=== PATIENT | male | born 1945 | race Caucasian/White ===

== ENCOUNTER 2018-04-05 02:44 | Emergency (ER) | payer OTHER, MEDICARE ==
[~2018-04-05] VITALS: Ht 180.3 cm; Wt 88.5 kg
[~2018-04-05 02:44] MED LIST: ASPIRIN325 MG PO; AUGMENTIN 875-1 EACH PO; CARVEDILOL12.5 MG PO; CENTRUM COMPLE1 EACH; CLEOCIN HCL150 MG PO; COREG6.25 MG PO; FUROSEMIDE40 MG PO; GLIPIZIDE ER5 MG PO; GLIPIZIDE5 MG PO; HYDROCODON-ACE1 EA11; HYDROCODON-ACE1 EAC3; METFORMIN HCL500 MG PO; MOBIC15 MG; NORCO 7.5-3251 EACH PO; NOVOLOG MI100 UNITS/ IJ; PLAVIX75 MG PO; PRILOSEC20 MG; PRINIVIL20 MG PO; ULTRAM50 MG PO; UNISOM SLEEP AI25 MG PO
[2018-04-05 03:01] LABS: BASOPHILS # (AUTO) 0.1 (0.0-0.1); BASOPHILS % 0.6 % (0.0-1.0); EOSINOPHILS # (AUTO) 0.6 (0.0-0.4); EOSINOPHILS % 7.6 % (0.0-6.0); HEMATOCRIT 37.5 % (38.2-49.6); HEMOGLOBIN 13.3 g/dL (14.0-18.0); LYMPHOCYTES # (AUTO) 2.4 (1.0-3.2); LYMPHOCYTES % 29.9 % (18.0-39.1); MEAN CORPUSCULAR HGB CONC 35.5 g/dL (31-35); MEAN CORPUSCULAR VOLUME 90.1 fL (81-99); MONOCYTES # (AUTO) 0.8 (0.2-0.8); MONOCYTES % 9.4 % (4.4-11.3); NEUTROPHILS # (AUTO) 4.3 (2.1-6.9); NEUTROPHILS % 52.1 % (38.7-80.0); PLATELET COUNT 214 x10e3/uL (140-360); RED BLOOD COUNT 4.16 x10e6/uL (4.3-5.7); RED CELL DISTRIBUTION WIDTH 12.6 % (11.7-14.4)
[2018-04-05] MEDS ORDERED: HYDRALAZINE HCL 20 MG/ML VIAL IV STA (03:02)
--- NOTE | 2018-04-05 03:31 | Diagnostic Imaging Report ---
EXAM: XR CHEST 1 VIEW DATE: 04/05/2018 2:47 AM INDICATION: Pain COMPARISON: None FINDINGS: Lines and Tubes: Single lead left chest wall ICD Heart and Mediastinum: No acute cardiomediastinal findings. Lungs and Pleura: No significant pleural effusion, pneumothorax, or focal consolidation. Granuloma right midlung. Bones and Soft Tissues: Degenerative changes shoulders. IMPRESSION: 1. No acute cardiopulmonary findings. Signed by: Dr. Pelon Nicholson MD on 04/05/2018 3:28 AM
[2018-04-05 03:36] LABS: ALBUMIN 3.2 g/dL (3.5-5.0); ALBUMIN/GLOBULIN RATIO 1.1 (0.8-2.0); ANION GAP 15.2 mmol/L (8-16); CALCIUM 9.1 mg/dL (8.4-10.2); CREATININE, SERUM 2.18 mg/dL (0.72-1.25); POTASSIUM 3.2 mmol/L (3.5-5.1)
[2018-04-05 05:05] LABS: INR 0.9; PARTIAL THROMBOPLASTIN TIME 28.6 seconds (23.8-35.5)
== END 2018-04-05 04:40 | disposition home or self-care (01) ==
LOC: ER 02:44
DX: R07.89 Other chest pain (principal); R06.00 Dyspnea, unspecified; I10 Essential (primary) hypertension; E11.9 Type 2 diabetes mellitus without complications; I50.9 Heart failure, unspecified; Z89.512 Acquired absence of left leg below knee; I25.2 Old myocardial infarction; Z95.810 Presence of automatic (implantable) cardiac defibrillator
CPT/HCPCS: 36415; 71045; 80053; 82550; 82553; 83880; 84484; 85025; 85610; 85730; 93005; 99284

== ENCOUNTER 2018-05-05 12:32 | Emergency (ER) | payer MEDICARE, OTHER ==
[~2018-05-05] VITALS: Ht 182.9 cm; Wt 86.2 kg
--- OUTSIDE RECORDS SUMMARY | 2018-05-05 12:36 | XMS REPORT ---
Author Author [facility] Address Unknown Phone Unavailable Care Team Providers Care Lumpia Wrapper Maker Name Role Phone Kianna TAN Unavailable Unavailable Problems This patient has no known problems. Allergies, Adverse Reactions, Alerts This patient has no known allergies or adverse reactions. Medications This patient has no known medications. Results Test Description Test Time Test Comments Text Results Atomic Results Result Comments CHEST SINGLE (PORTABLE) 2018-04-05 03:27:00 [place] [address] Patient Name: KIA KING MR #: [id number] : 1945 Age/Sex: 73/M Req #: [id number] Adm Physician: Ordered by: JADON TAN MD Report #: [id number] Location: ER Room/Bed: Procedure: [id number] DX/CHEST SINGLE (PORTABLE) Exam Date: 04/05/18 Exam Time: 0305 REPORT STATUS: Signed EXAM: XR CHEST 1 VIEW DATE: 04/05/2018 2:47 AM INDICATION: Pain COMPARISON: None FINDINGS: Lines and Tubes: Single lead left chest wall ICD Heart and Mediastinum: No acute cardiomediastinal findings. Lungs and Pleura: No significant pleural effusion, pneumothorax, or focal consolidation. Granuloma right midlung. Bones and Soft Tissues: Degenerative changes shoulders. IMPRESSION: 1. No acute cardiopulmonary findings. Signed by: Dr. Pelon Allen MD on 04/05/2018 3:28 AM Dictated By: PELON ALLEN MD 7 Transcribed By: BAR on 04/05/18327 COPY TO: JADON TAN MD
--- NOTE | 2018-05-05 13:12 | NUR ---
DR. BLACKWELL IN TO EVAL PT DURING TRIAGE.
== END 2018-05-05 13:18 | disposition left against medical advice (07) ==
LOC: ER 12:32
DX: R31.0 Gross hematuria (principal)
CPT/HCPCS: 99281

== ENCOUNTER 2018-12-10 14:47 | Inpatient (IN) | payer MEDICARE, OTHER ==
[~2018-12-10] VITALS: Ht 210.8 cm; Wt 75.5 kg
[2018-12-10 16:10] LABS: BASOPHILS % 0.2 % (0.0-1.0); EOSINOPHILS # (AUTO) 0.1 (0.0-0.4); EOSINOPHILS % 0.5 % (0.0-6.0); HEMOGLOBIN 10.2 g/dL (14.0-18.0); LYMPHOCYTES # (AUTO) 1.5 (1.0-3.2); LYMPHOCYTES % 8.9 % (18.0-39.1); MEAN CORPUSCULAR HEMOGLOBIN 30.8 pg (28-32); MEAN CORPUSCULAR HGB CONC 32.9 g/dL (31-35); MEAN CORPUSCULAR VOLUME 93.7 fL (81-99); MONOCYTES # (AUTO) 1.1 (0.2-0.8); MONOCYTES % 6.5 % (4.4-11.3); NEUTROPHILS # (AUTO) 13.6 (2.1-6.9); NEUTROPHILS % 83.2 % (38.7-80.0); PLATELET COUNT 285 x10e3/uL (140-360); RED BLOOD COUNT 3.31 x10e6/uL (4.3-5.7); RED CELL DISTRIBUTION WIDTH 13.2 % (11.7-14.4)
[2018-12-10 16:29] LABS: ALBUMIN 3.1 g/dL (3.5-5.0); ALBUMIN/GLOBULIN RATIO 0.9 (0.8-2.0); ANION GAP 13.1 mmol/L (8-16); CREATININE, SERUM 1.73 mg/dL (0.72-1.25); POTASSIUM 4.1 mmol/L (3.5-5.1)
[2018-12-10] MEDS ORDERED: PIPERACILLIN/TAZO 2.25 GM 50 ML IV ONE (16:45)
[2018-12-10] MEDS ORDERED: VANCOMYCIN 1GM/NS 250 ML 250 ML IV ONE (17:15)
--- NOTE | 2018-12-10 17:43 | Diagnostic Imaging Report ---
Foot complete CPT code: 54780 Indication: Foot and leg swelling ^R/O OSTEO ^[id number] ^1700 Technique: Portable A.P., oblique and lateral views of the right foot obtained. Comparison: None Findings: The area of concern is not indicated or marked. Calcaneus is intact with small posterior and plantar spurs. The midfoot is intact. No evidence of displaced fracture or dislocation involving any of the digits. No focal demineralization or periosteal new bone formation. There is diffuse soft tissue swelling of the forefoot at the level of the metatarsals. No ulcers are appreciated. There are calcifications throughout the arterial structures of the forefoot. No radiopaque foreign bodies in the soft tissues. IMPRESSION: No radiographic evidence of osteomyelitis. Signed by: Dr. Roger Wells MD on 12/10/2018 5:40 PM
[2018-12-10 20:00] VITALS: BP 164/63
--- NOTE | 2018-12-10 20:05 | NUR ---
Patient admitted to room 297 via stretcher. Patient alert and orient to name, hospital , and diagnosis: right foot infection. Left BKA, right heel eschar to heel. Patient stated fallen x3 in past week. left leg with heeling abrasions. Patient stated legally blind. Denies dysuria. Last BM 2 days ago. sacrum stage 2. hx left hip replacement x3 weeks ago, surgical incisions heeling. Oriented to room. Call crum within reach. Bed alarm on and mattress pump in place. Will continue to monitor.
[2018-12-10 20:34] VITALS: BP 164/63
[2018-12-10] MEDS ORDERED: INFLUENZA VIRUS VAC SPLIT INJ 0.5 ML SYR IM SCH (20:35)
[2018-12-10] MEDS ORDERED: PNEUMOCOCCAL VACCINE POLYVALENT 23 MCG/0.5 ML VIAL IM SCH (20:35)
[2018-12-10] MEDS: CEFTRIAXONE SOD 2 GM/NS 100 ML 100 ML IV SCH (21:00)
[2018-12-10] MEDS ORDERED: SODIUM CHLORIDE 0.9% 250ML 250 ML ONE (22:58)
[2018-12-10] MEDS ORDERED: DEXTROSE 50% SYRINGE 50 ML IV PRN (23:00)
[2018-12-11] VITALS (8 sets, daily range): BP systolic 119–159; BP diastolic 66–80
[2018-12-11] MEDS: TRAZODONE HCL 50 MG TAB PO PRN
--- NOTE | 2018-12-11 02:25 | Consultation ---
DATE OF CONSULTATION: REASON FOR CONSULTATION: Gangrene and cellulitis of the right heel. HISTORY OF PRESENT ILLNESS: This patient who is very pleasant 73-year-old, who has history of diabetes mellitus, hypertension, hyperlipidemia, atherosclerotic disease. He also has status post dncpi-vov-vchc amputation on the left. He said he was taking his boot a week or so ago. The piece of the skin came out from the heel. The patient had necrosis, redness, and swelling. The patient came to the emergency room where he was admitted. He is currently lying in bed, complaining of pain, redness, swelling in his foot. PAST MEDICAL HISTORY: Diabetes mellitus and hypertension. PAST SURGICAL HISTORY: BKA. ALLERGIES: NKA. HOME MEDICATIONS: He is on: 1. Carvedilol. 2. Plavix. 3. Furosemide. 4. Glipizide. 5. Insulin. The patient was admitted. I am asked to see him. MEDICATION LIST: Reviewed. LABORATORY DATA: Reviewed. His creatinine was 1.3. PHYSICAL EXAMINATION: GENERAL: He is currently alert, oriented, does not seem to be in acute distress. VITAL SIGNS: Stable. Currently afebrile. HEENT: Normocephalic. Not icteric. NECK: Supple. No JVD. No carotid bruit. No thyromegaly. CHEST: Clear bilateral. HEART: S1, S2. No S3, S4, or murmur. ABDOMEN: Soft. Bowel sounds present. No tenderness. EXTREMITIES: No edema. On the right foot, there is an area for erythema, edema, necrosis of the heel. The forefoot seems to be erythematous. IMPRESSION: Cellulitis of the foot in a patient with diabetes mellitus, chronic kidney disease, concerned about atherosclerotic disease, peripheral vascular disease. Agree with vancomycin. We will put him on Rocephin 2 g a day. We will adjust vancomycin to his kidney function. We will follow up with the vancomycin trough. LABORATORY DATA: Recheck CBC. Recheck Chem panel. Obtain sedimentation rate and C-reactive protein. He is also status post a pacemaker and defibrillator, so we cannot do an MRI. We will get CT of the foot without contrast and also vascular workup and the phone number. We will follow up. MD TESFAYE Flood/CHANELL /[id number]
[2018-12-11] MEDS: HYDROCODONE/APAP 5MG-325MG TAB PO PRN ×3 (06:55→19:06)
[2018-12-11] MEDS ORDERED: INFLUENZA VIRUS VAC SPLIT INJ 0.5 ML SYR IM ONE (07:08)
[2018-12-11] MEDS ORDERED: PNEUMOCOCCAL VACCINE POLYVALENT 23 MCG/0.5 ML VIAL ONE (07:10)
[2018-12-11] MEDS: INSULIN REGULAR, HUMAN 100 UNIT/1 ML 3ML VIAL SQ SCH ×4 (07:30→21:00)
--- NOTE | 2018-12-11 07:30 | NUR ---
PT UP IN BED AWAKE ,DENIES PAIN
--- NOTE | 2018-12-11 08:30 | NUR ---
DR MUNIZ HERE ,DR HUTCHINSON HERE DRSG TO RT FOOT REMOVED ,ORDERS WRITTEN
[2018-12-11] MEDS: OMEPRAZOLE 20 MG CAP PO SCH (09:13)
[2018-12-11] MEDS: CARVEDILOL 12.5 MG TAB PO SCH ×2 (09:13→17:30)
[2018-12-11] MEDS: CLOPIDOGREL BISULFATE 75 MG TAB PO SCH (09:13)
[2018-12-11] MEDS: FUROSEMIDE 40 MG TAB PO SCH ×2 (09:13→17:30)
[2018-12-11] MEDS: GLIPIZIDE 5 MG TAB PO SCH ×2 (09:14→17:30)
[2018-12-11] MEDS: LISINOPRIL 20 MG TAB PO SCH (09:14)
[2018-12-11] MEDS: MUPIROCIN 2% OINT 22 GM TUBE TOP SCH (12:04)
--- NOTE | 2018-12-11 12:30 | NUR ---
PT ASSISTED UP TO BR MIN ASSIST
--- NOTE | 2018-12-11 15:19 | Consultation ---
DATE OF CONSULTATION: 12/11/2018 REASON FOR CONSULTATION: Ulceration to the right foot with the patient being an insulin-dependent diabetic. HISTORY OF PRESENT ILLNESS: A pleasant 73-year-old white male, who is seen at bedside. Denies any history of fever, chills, nausea, or vomiting, with a history of insulin-dependent diabetes, hypertension, and a history of also xixdj-kti-atwe amputation to the left lower extremity 5 years ago, who relates he has had an ulceration for approximately a month now. Started wearing a boot according to the patient. PAST MEDICAL HISTORY: Remarkable for insulin-dependent diabetes and hypertension. PAST SURGICAL HISTORY: Remarkable for left hip surgery approximately 2 weeks ago, left vesfi-ltw-phzm amputation 5 years ago with placement of defibrillator also 5 years ago. ALLERGIES: THE PATIENT DENIES. CURRENT MEDICATIONS: Note listed in the chart including ceftriaxone and vancomycin. SOCIAL HISTORY: Smokes approximately a pack a week, started once again approximately 8 months ago, was a pack-a-day smoker 25 years ago according to the patient. No drinking or recreational drug use. Has 3 daughters. FAMILY HISTORY: Not contributory. REVIEW OF SYSTEMS: CARDIAC: Denies any palpitations or arrhythmias. RESPIRATORY: Denies any shortness of breath or productive cough. GASTROINTESTINAL: Denies any diarrhea or constipation. PHYSICAL EXAMINATION: VITAL SIGNS: Afebrile, pulse rate 73, respirations 18, blood pressure 141/79, and O2 saturation 98%. Podiatric physical examination reveals the following: VASCULATURE: Pedal pulses of both the DP and PT of the right lower extremity are diminished. Skin temperature warm and cool to touch. NEUROLOGICAL: Reveals loss of protective sensation to the right lower extremity when utilizing [place] 5.07 Monofilament wire. MUSCULOSKELETAL: Reveals muscle mass to be somewhat wasted to the right lower extremity. Muscle strength to be 4/5 to all muscle groups right foot. DERMATOLOGICAL: Reveals a grade 3 ulceration measuring more than 2.5 to 3 cm in diameter, posterior plantar aspect of the right heel with some necrotic scab noted and periwound cellulitis with no drainage. LABORATORY DATA: Labs noted. He has a white blood cell count of 16.3, hemoglobin 10.2 with a platelet count of 285. Has a blood glucose of 144. ASSESSMENT: Grade 3 ulcer, possible osteo, peripheral arterial disease, diabetic neuropathy with cellulitis. PLAN: We will continue IV antibiotics. Continue offloading. X-rays, axial calcaneal lateral will be ordered to rule out any osteomyelitis. We will start light film of Bactroban ointment followed by diluted wet-to-dry Betadine. Surgical debridement of the ulcer will be performed at bedside tomorrow. The patient understands. We will try to salvage the foot, but no guarantees can be given. CARMENZA Vu/FREDERICL /[id number]
[2018-12-11] MEDS: VANCOMYCIN 1GM/NS 250 ML 250 ML IV SCH (18:09)
--- NOTE | 2018-12-11 18:11 | NUR ---
PT IN BED RESTING NO DISTRESS NOTED,DENIES PPAIN,REDNESS NOTED TO SACRAL AREA ALDA BOYLE
--- NOTE | 2018-12-11 19:20 | NUR ---
Bedside rounds with morning nurse. Pt alert and oriented to name. Lying in bed HOB 30 degrees. Pain decreasing in right foot, previously medicated. Call crum within reach. Will continue to monitor.
[2018-12-11] MEDS: CEFTRIAXONE SOD 2 GM/NS 100 ML 100 ML IV SCH (20:00)
--- NOTE | 2018-12-11 23:01 | Consultation ---
DATE OF CONSULTATION: Cardiology Consultation CHIEF COMPLAINT: Gangrene and cellulitis of the right heel. HISTORY OF PRESENT ILLNESS: The patient is a 73-year-old with a known history of diabetes mellitus and peripheral vascular disease. The patient said he was ripped the skin off his right heel when he was taking off his boot. The patient came to the emergency room with erythema, swelling and necrosis of the right heel. The patient was subsequently admitted. PAST MEDICAL HISTORY: Significant for: 1. Diabetes mellitus. 2. Hypertension. 3. Coronary artery disease with previous coronary stent. 4. Peripheral vascular disease with previous left mxmdr-aqk-crhv amputation. CURRENT MEDICATIONS: At home include: 1. Carvedilol. 2. Plavix. 3. Furosemide. 4. Insulin. SOCIAL HISTORY: The patient does not drink and does not smoke. FAMILY HISTORY: There is a known family history of diabetes mellitus and hypertension. PHYSICAL EXAMINATION: GENERAL: The patient is a well-developed, well-nourished male, in no obvious distress. VITAL SIGNS: Included temperature of 97.7, blood pressure of 134/80, pulse was 65. HEAD, EARS, EYES, NOSE, AND THROAT: The patient's cranium was normocephalic and atraumatic. Extraocular muscles were intact. Sclerae were anicteric. Pupils were equal, round, reactive to light. There was no pallor or cyanosis of the oral mucosa. There was no erythema or edema of the throat. NECK: Supple. No jugular venous distention. No carotid bruits. CHEST: Clear to auscultation and percussion. CARDIAC: Demonstrated normal S1 and S2 with a short 2/6 systolic murmur. ABDOMINAL: Demonstrated good bowel sounds. No tenderness and no masses. EXTREMITIES: The patient had a left mkzsl-slw-bkbs amputation. The patient also had a right heel ulcer. NEUROLOGIC: The patient was alert and oriented x3. Cranial nerves II through XII were intact. Motor strength was intact in all limbs. The patient's EKG demonstrated normal sinus rhythm with some nonspecific ST and T-wave changes. IMPRESSION: The patient is a 73-year-old with peripheral vascular disease and necrotic ulcer of the right heel. RECOMMENDATIONS: As follows: 1. The patient will need to be treated with antibiotics and local wound care. 2. The patient is unable to heel his wound with local wound debridement and dressing changes and antibiotics. An angiogram of the right leg will need to be done. 3. An arterial duplex has been ordered and it still pending. MD DENIS Caballero/FREDERICL /[id number] cc: MD Whitney Flood MD
[2018-12-12] VITALS (8 sets, daily range): BP systolic 122–174; BP diastolic 67–79
--- NOTE | 2018-12-12 07:00 | NUR ---
RECEIVED REPORT FROM OFF GOING NURSE. WALKING ROUNDS DONE. PATIENT IS RESTING IN BED. NO ACUTE DISTRESS NOTED. CALL LIGHT WITHIN REACH. BED IN THE LOWEST POSITION.
[2018-12-12] MEDS: INSULIN REGULAR, HUMAN 100 UNIT/1 ML 3ML VIAL SQ SCH ×4 (07:30→20:38)
[2018-12-12] MEDS: MUPIROCIN 2% OINT 22 GM TUBE TOP SCH (09:00)
[2018-12-12] MEDS: CARVEDILOL 12.5 MG TAB PO SCH ×2 (10:10→18:02)
[2018-12-12] MEDS: FUROSEMIDE 40 MG TAB PO SCH ×2 (10:10→18:02)
[2018-12-12] MEDS: CLOPIDOGREL BISULFATE 75 MG TAB PO SCH (10:10)
[2018-12-12] MEDS: GLIPIZIDE 5 MG TAB PO SCH ×2 (10:10→18:01)
[2018-12-12] MEDS: LISINOPRIL 20 MG TAB PO SCH (10:10)
[2018-12-12] MEDS: OMEPRAZOLE 20 MG CAP PO SCH (10:10)
--- NOTE | 2018-12-12 11:39 | Progress Note ---
DATE: 12/12/2018 SUBJECTIVE: Mr. Dickson is a 73-year-old man with history of coronary artery disease, diabetes type 2, hypertension, left below-knee amputation, hyperlipidemia, has a defibrillator, sent to the emergency room with right heel ulcer with probably infection and osteomyelitis. He was admitted to the hospital. He is seen by food service worker, Infectious Disease, and Cardiology. PHYSICAL EXAMINATION: GENERAL: Today, he is awake and alert. He is feeling little better. VITAL SIGNS: Temperature is 97.9, blood pressure 133/67. HEART: Regular rate. LUNGS: Clear to auscultation. ABDOMEN: Soft. LABORATORY DATA: On the blood work, potassium is 4.1, creatinine is 1.73, glucose is 100. White count is 16.3, hemoglobin 10.2, hematocrit 31. Blood cultures so far no growth. Venous Doppler, no evidence of DVT. Foot x-ray shows no evidence of osteomyelitis. ASSESSMENT AND PLAN: 1. Left heel cellulitis with infected ulcer. 2. Diabetes type 2 with foot ulcer. 3. Coronary artery disease, status post stent. 4. Hypertension. 5. Presence of defibrillator. 6. Hyperlipidemia. 7. Left below-knee amputation. 8. 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 9. Chronic kidney disease, stage 3. 10. Peripheral artery disease. PLAN: At the present time is to continue wound care and IV antibiotics. He is going to go for debridement today that is going to be done at bedside by Dr. Hayward. All this was discussed with the patient. All questions were answered to satisfaction. He cannot have an MRI because he has a defibrillator, so he is going to go for a CAT scan to rule out osteomyelitis. MD BRENDA Vidal/FREDERICL /[id number]
--- NOTE | 2018-12-12 12:12 | Diagnostic Imaging Report ---
EXAM: CT right foot without contrast INDICATION: Foot infection. Osteomyelitis. Foot pain COMPARISON: None. TECHNIQUE: Right foot was scanned utilizing a multidetector helical without administration of IV contrast. Coronal and sagittal reformations were obtained. Routine protocol was performed. IV CONTRAST: None ORAL CONTRAST: Water COMPLICATIONS: None RADIATION DOSE: Total DLP: 121.94 mGy*cm Estimated effective dose: (DLP x 0.015 x size factor) mSv CTDIvol has been reviewed. It is below the limits set by the Radiation Protocol Committee (RPC). Dose modulation, iterative reconstruction, and/or weight based adjustment of the mA/kV was utilized to reduce the radiation dose to as low as reasonably achievable. FINDINGS: No acute fracture, subluxation or evidence of avascular necrosis. Bipartite fibular sesamoid bone. Scattered degenerative changes. Small posterior and inferior calcaneal bone spurs. No talar dome osteochondral lesion is seen. No osseous erosion is seen to suggest osteomyelitis. Scattered vascular calcification. Diffuse muscle atrophy. Diffuse soft tissue edema about the foot. This could be due to cellulitis in the appropriate clinical context. No focal collection is seen. Apparent skin ulceration at the posterior calcaneus. No radiopaque foreign body. Impression: Diffuse soft tissue edema about the foot. This could be due to cellulitis in the appropriate clinical context. No focal collection is seen. Apparent skin ulceration at the posterior calcaneus. No osseous erosion is seen to suggest osteomyelitis. Signed by: Dr. Gabriele Mcnally M.D. on 12/12/2018 12:09 PM
--- NOTE | 2018-12-12 13:03 | NUR ---
Nutrition Intervention Note RD Recommendation(s) for Physician: -Continue current diet. -Recommend Shayan BID to promote wound healing. -Recommend zinc sulfate 22 mg daily x 10 days, Vit C 500 mg BID, MVI with minerals daily to help promote wound healing if medically feasible. Plan of Care: RD following, monitoring for tolerance and adequacy. Shayan BID. Nutrition reason for involvement: Unstageable pressure ulcer RD Assessment 12/12: 73 YOM admitted for foot infection with PMH listed below. Pt was seen lying in bed. Pt reports a good appetite and did not report any recent weight loss. Pt denied N/V, stated he has chronic constipation and denied chewing or swallowing issues as well as any food allergies. Per FS the pt has an unstageable wound on heel. Wound care has been consulted. Provided wound healing recommendations above and encouraged protein intake, pt denied ONS such as Ensure. Recommend Shayan BID to help promote wound healing, reported this to nurse who reported she will ask the MD. Pt is going for a debridement today per MD note, pt is going to have a CAT scan to rule out osteomyelitis. Pt was here in April and was 190 lbs suggesting no weight loss. Will continue to monitor. Principal Problems/Diagnoses: Foot infection PMH: coronary artery disease, diabetes type 2, hypertension, left below-knee amputation, hyperlipidemia, has defibrillator GI: :LBM: not recorded Skin: unstageable on heel, stage II on sacrum, wound on foot Labs: 12/12: POC GM 226 Meds: Lisinopril, glucotrol, lasix, plavix, abx, insulin Ht: 83 inches is recorded with EMR, 73 inches is more appropriate Wt: 190 lbs BMI:19.6 kg/m^2BMI based on 73 inches: 25.1 kg/m^2 ABW: 91 kg Malnutrition Evaluation 12/12 The patient does not meet criteria for a specified degree of malnutrition at this time. Will re-evaluate at follow-up as appropriate. Nutrition Prescription (Diet Order):cardiac Estimated Nutritional Needs: Calories: 1638- 2002 (18-22 kcal/kg/day) Weight used : ABW 91 kg Protein : 109-136(1.2-1.5 gram/kg/day ) Weight used: ABW 91kg Diet Adequacy: Not meeting calorie needs, Not meeting protein needs Diet Education Needs Assessment: Diet education indicated, but patient not appropriate for education at this time. Nutrition Care Level: mod Nutrition Diagnosis: Inadequate protein intake related to medical condition as evidenced by possible unstageable pressure ulcer recorded within EMR. Goal: Patient will meet 75-100% of estimated needs by follow up Progress: N/A Interventions: - mineral (sodium). Fat. Cholesterol modified diet, Commercial beverage Prescription medications Multivitamin/mineral supplement therapy, Monitoring/Evaluation: -Total energy intake, Total protein intake Prescription medication, Modified diet, Liquid supplement, Weight change, Signed: Jeanne Coronado RD, LD
[2018-12-12] MEDS: COLLAGENASE 5 GM TUBE TOP SCH (15:03)
--- NOTE | 2018-12-12 16:25 | Progress Note ---
DATE: 12/12/2018 SUBJECTIVE: The patient at bedside having some discomfort to the right lower extremity. Denies any history of fever, chills, nausea, or vomiting. OBJECTIVE: VITAL SIGNS: Afebrile, pulse rate 76, respirations 19, blood pressure 174/75, O2 saturation 95%. Ulceration to the right heel was more than 4 cm in diameter with some necrosis noted down the subcutaneous tissue and muscle. There is some periwound cellulitis with minimal drainage and some foul smell, but no purulent drainage noted. X-rays reveal no evidence type of osteomyelitic changes at this time. Pedal pulses are diminished. ASSESSMENT: Grade 3 ulceration right foot measuring 4 cm in diameter with necrosis noted down to subcu and muscle with no bone exposed. PLAN: Sharp excisional debridement of the ulcer was performed down to subcu and muscle. Devitalized tissue sharply excised under no anesthesia secondary to his peripheral neuropathy. Did have some discomfort upon debridement. Good viable bleeding tissue was achieved. Sterile dressing was applied with diluted wet-to-dry Betadine. Following the debridement of the necrotic tissue, we will treat the patient conservatively. Offloading boot will be ordered. We will continue treating with IV antibiotics and local wound care with Santyl followed by diluted wet-to-dry. Continue IV ceftriaxone and vancomycin. The patient understands that if not responsive, further debridement may be done. We will try to salvage the foot. CARMENZA Vu/CHANELL /[id number]
[2018-12-12] MEDS: VANCOMYCIN 1GM/NS 250 ML 250 ML IV SCH (18:02)
--- NOTE | 2018-12-12 19:06 | NUR ---
Report given to oncoming nurse. Walking rounds done. Patient is resting in bed. No acute distress noted. Call light within reach. Bed in the lowest position.
--- NOTE | 2018-12-12 19:31 | NUR ---
PT IS RESTING IN BED. RESPIRATION IS EVEN AND UNLABORED, NO DISTRESS NOTED. BED IN THE LOWEST POSITION, LOCKED, AND CALL LIGHT WITHIN REACH. WILL CONTINUE TO MONITOR.
[2018-12-12] MEDS: CEFTRIAXONE SOD 2 GM/NS 100 ML 100 ML IV SCH (20:38)
[2018-12-12] MEDS: HYDROCODONE/APAP 5MG-325MG TAB PO PRN (22:45)
[2018-12-12] MEDS: TRAZODONE HCL 50 MG TAB PO PRN (23:39)
[2018-12-13] VITALS (8 sets, daily range): BP systolic 123–159; BP diastolic 64–82
[2018-12-13 06:45] LABS: BASOPHILS % 0.4 % (0.0-1.0); EOSINOPHILS # (AUTO) 0.3 (0.0-0.4); EOSINOPHILS % 3.2 % (0.0-6.0); HEMATOCRIT 28.1 % (38.2-49.6); HEMOGLOBIN 9.1 g/dL (14.0-18.0); LYMPHOCYTES # (AUTO) 1.8 (1.0-3.2); LYMPHOCYTES % 21.5 % (18.0-39.1); MEAN CORPUSCULAR HEMOGLOBIN 30.1 pg (28-32); MEAN CORPUSCULAR HGB CONC 32.4 g/dL (31-35); MONOCYTES # (AUTO) 0.7 (0.2-0.8); MONOCYTES % 8.6 % (4.4-11.3); NEUTROPHILS # (AUTO) 5.6 (2.1-6.9); NEUTROPHILS % 65.8 % (38.7-80.0); PLATELET COUNT 267 x10e3/uL (140-360); RED BLOOD COUNT 3.02 x10e6/uL (4.3-5.7); RED CELL DISTRIBUTION WIDTH 12.9 % (11.7-14.4)
[2018-12-13] MEDS: INSULIN REGULAR, HUMAN 100 UNIT/1 ML 3ML VIAL SQ SCH ×4 (07:30→20:53)
[2018-12-13] MEDS: GLIPIZIDE 5 MG TAB PO SCH ×2 (08:48→16:48)
[2018-12-13] MEDS: FUROSEMIDE 40 MG TAB PO SCH ×2 (08:49→16:48)
[2018-12-13] MEDS: OMEPRAZOLE 20 MG CAP PO SCH (08:49)
[2018-12-13] MEDS: CARVEDILOL 12.5 MG TAB PO SCH ×2 (08:49→16:48)
[2018-12-13] MEDS: CLOPIDOGREL BISULFATE 75 MG TAB PO SCH (08:49)
[2018-12-13] MEDS: LISINOPRIL 20 MG TAB PO SCH (08:49)
[2018-12-13] MEDS ORDERED: COLLAGENASE 5 GM TUBE TOP SCH (09:00)
[2018-12-13] MEDS: COLLAGENASE 5 GM TUBE TOP SCH (11:26)
--- NOTE | 2018-12-13 17:31 | Progress Note ---
DATE: 12/13/2018 SUBJECTIVE: The patient at bedside, doing well. Decreased pain to the right lower extremity. Skin temperature warm to touch. Dressing was just changed by the nurse. OBJECTIVE: VITAL SIGNS: Afebrile, pulse rate 71, respirations 18, blood pressure 146/74, and O2 saturation 95%. LABORATORY DATA: Noted. Has a white blood cell count dropping to 8.4 from 16.3, hemoglobin 9.1, hematocrit 28.1 with a platelet count of 267. Dressing dry and intact. ASSESSMENT: Grade 3 ulcer right heel with peripheral arterial disease. PLAN: The patient will be undergoing possible angioplasty per Dr. Mayo some time being of next week. We will continue to treat conservatively with Santyl followed by diluted wet-to-dry. Continue offloading with still under calf and a heel protector to the right lower extremity. We will change dressing in the morning tomorrow. CARMENZA Vu/CHANELL /[id number]
[2018-12-13] MEDS: VANCOMYCIN 1GM/NS 250 ML 250 ML IV SCH (18:41)
--- NOTE | 2018-12-13 19:06 | NUR ---
REPORT GIVEN TO ONCOMING NURSE. PATIENT IS RESTING IN BED. NO ACUTE DISTRESS NOTED. DENIES PAIN OR DISCOMFORT AT THIS TIME. CALL LIGHT WITHIN REACH. BED IN THE LOWEST POSITION.
--- NOTE | 2018-12-13 19:15 | NUR ---
patient received awake, alert, lying quietly in bed. no c/o pain noted. dressing right foot c,d,i. pm assessment complete. patient instructed to call for assistance when needed.
[2018-12-13] MEDS: CEFTRIAXONE SOD 2 GM/NS 100 ML 100 ML IV SCH (20:00)
[2018-12-13] MEDS: TRAZODONE HCL 50 MG TAB PO PRN (21:19)
[2018-12-13] MEDS: HYDROCODONE/APAP 5MG-325MG TAB PO PRN (21:19)
--- NOTE | 2018-12-13 21:19 | NUR ---
patient medicated for c/o right foot pain 5/10 at this time per patients request.
[2018-12-14] VITALS (8 sets, daily range): BP systolic 140–177; BP diastolic 69–85
--- NOTE | 2018-12-14 06:58 | NUR ---
RECEIVED PATIENT RESTING IN BED. NO ACUTE DISTRESS NOTED. CALL LIGHT WITHIN REACH. BED IN THE LOWEST POSITION.
[2018-12-14] MEDS: INSULIN REGULAR, HUMAN 100 UNIT/1 ML 3ML VIAL SQ SCH ×4 (07:30→20:36)
[2018-12-14] MEDS: OMEPRAZOLE 20 MG CAP PO SCH (08:27)
[2018-12-14] MEDS: CLOPIDOGREL BISULFATE 75 MG TAB PO SCH (08:27)
[2018-12-14] MEDS: FUROSEMIDE 40 MG TAB PO SCH ×2 (08:27→16:46)
[2018-12-14] MEDS: CARVEDILOL 12.5 MG TAB PO SCH ×2 (08:27→16:46)
[2018-12-14] MEDS: GLIPIZIDE 5 MG TAB PO SCH ×2 (08:27→16:46)
[2018-12-14] MEDS: LISINOPRIL 20 MG TAB PO SCH (08:27)
[2018-12-14] MEDS: COLLAGENASE 5 GM TUBE TOP SCH (13:27)
[2018-12-14] MEDS ORDERED: TRAVATAN Z5 ML OP (15:19)
--- NOTE | 2018-12-14 17:06 | Progress Note ---
DATE: 12/14/2018 SUBJECTIVE: The patient at bedside, doing better, denies any history of fever, chills, nausea, or vomiting. OBJECTIVE: VITAL SIGNS: Afebrile, pulse rate 60, respirations 19, blood pressure 141/73, O2 saturation 98%. EXTREMITIES: Ulceration to the right heel is getting better, some granulation tissue noted more than 3 to 4 cm in diameter. Pedal pulses are diminished. Skin temperature warm to touch. LABORATORY DATA: Noted. Has a white blood cell count of 8.4 with a hemoglobin of 9.1. ASSESSMENT: Grade 3 ulcer, right heel, healing with cellulitis. PLAN: Continue IV vancomycin. Continue Santyl followed by diluted wet-to-dry Betadine, dressing change was done. Continue offloading and heel protector. We will continue to follow. CARMENZA Vu/CHANELL /[id number]
[2018-12-14] MEDS: VANCOMYCIN 1GM/NS 250 ML 250 ML IV SCH (18:20)
--- NOTE | 2018-12-14 19:40 | NUR ---
REPORT GIVEN TO ONCOMING NURSE. WALKING ROUNDS DONE. PATIENT IS RESTING IN BED. NO ACUTE DISTRESS NOTED. CALL LIGHT WITHIN REACH. BED IN THE LOWEST POSITION.
[2018-12-14] MEDS: HYDROCODONE/APAP 5MG-325MG TAB PO PRN (20:35)
[2018-12-14] MEDS: CEFTRIAXONE SOD 2 GM/NS 100 ML 100 ML IV SCH (20:35)
[2018-12-14] MEDS: TRAZODONE HCL 50 MG TAB PO PRN (21:34)
[2018-12-15] VITALS: BP_SYST 137; BP_SYST 154; BP_DIAS 66; BP_DIAS 70
--- NOTE | 2018-12-15 07:11 | NUR ---
received bedside report from lieutenant shift supervisor RN, pt resting comfortably, easily aroused, oriented X3, no signs of distress noted, will continue to monitor.
[2018-12-15] MEDS: INSULIN REGULAR, HUMAN 100 UNIT/1 ML 3ML VIAL SQ SCH ×4 (07:30→21:09)
[2018-12-15 08:34] VITALS: BP 144/72
[2018-12-15] MEDS: GLIPIZIDE 5 MG TAB PO SCH ×2 (09:11→16:35)
[2018-12-15] MEDS: CARVEDILOL 12.5 MG TAB PO SCH ×2 (09:12→16:36)
[2018-12-15] MEDS: FUROSEMIDE 40 MG TAB PO SCH ×2 (09:13→16:37)
[2018-12-15] MEDS: CLOPIDOGREL BISULFATE 75 MG TAB PO SCH (09:13)
[2018-12-15] MEDS: OMEPRAZOLE 20 MG CAP PO SCH (09:13)
[2018-12-15] MEDS: LISINOPRIL 20 MG TAB PO SCH (09:16)
[2018-12-15 09:57] VITALS: BP 144/72
--- NOTE | 2018-12-15 10:57 | Progress Note ---
DATE: 12/15/2018 SUBJECTIVE: Mr. Dickson is a 73-year-old man with history of coronary artery disease, hypertension, diabetes type 2, left below-knee amputation, hyperlipidemia, presence of defibrillator, who came to the emergency room because he was found to have a right heel ulcer stage III. He was started on wound care and IV antibiotics, and also seen by chain offbearer for peripheral artery disease and he is going to go for an angiogram tomorrow and possible stent. PHYSICAL EXAMINATION: GENERAL: Today, he is awake and alert. He is feeling better. VITAL SIGNS: Temperature is 96.8 and blood pressure 144/72. HEART: Regular rate. LUNGS: Clear to auscultation. ABDOMEN: Soft. LABORATORY DATA: On the blood work; white count 8.42, hemoglobin 9.1, and hematocrit 28.1. Glucose is 196. CT of the extremity shows a diffuse soft tissue edema, it could be due to cellulitis at the site of skin ulceration at the posterior calcaneus. No erosions to show osteomyelitis. ASSESSMENT: 1. Right heel cellulitis with infected ulcer. 2. Diabetes type 2 with foot ulcer. 3. Coronary artery disease, status post stent. 4. Hypertension. 5. Presence of defibrillator. 6. Hyperlipidemia. 7. Left below-knee amputation. 8. 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 9. Chronic kidney disease, stage 3. 10. Peripheral artery disease. PLAN: At the present time, he is to continue wound care and IV antibiotics. As per CT, no evidence of osteomyelitis. The patient is going to go for angiogram of the lower extremity with possible stent. Continue present treatment. All this was discussed with the patient in extension. All questions were answered to satisfaction. MD BRENDA Vidal/MODL /[id number]
[2018-12-15 12:15] VITALS: BP 126/61
[2018-12-15] MEDS: COLLAGENASE 5 GM TUBE TOP SCH (12:47)
--- NOTE | 2018-12-15 13:33 | Progress Note ---
DATE: 12/15/2018 SUBJECTIVE: The patient at bedside, doing well. Dressing dry and intact. CFT to all toes less than 4 seconds. OBJECTIVE: VITAL SIGNS: Afebrile, pulse rate 66, respirations 20, blood pressure 154/70, and O2 saturation at 98%. EXTREMITIES: Ulceration to the right heel getting better. Some granulation tissue and fibrosis noted. Negative foul smell. Positive periwound cellulitis present with decreased circulatory status to both the DP and PT. ASSESSMENT: Peripheral arterial disease with grade 3 ulcer, healing slowly. PLAN: Continue local wound care. Continue offloading. We will continue to follow. The patient will end up having a possible angioplasty per Dr. Farooq, possibly tomorrow. CARMENZA Vu/CHANELL /[id number]
[2018-12-15 16:02] VITALS: BP 135/63
[2018-12-15] MEDS: VANCOMYCIN 1GM/NS 250 ML 250 ML IV SCH (17:33)
--- NOTE | 2018-12-15 17:55 | Progress Note ---
DATE: SUBJECTIVE: Mr. Dickson is doing well. There is no new complaint. REVIEW OF SYSTEMS: HEENT: Negative. PULMONARY: Negative. CARDIAC: Negative. PHYSICAL EXAMINATION: GENERAL: He is currently alert, oriented, does not seem to be in acute distress. VITAL SIGNS: Stable, currently afebrile. HEENT: He is not icteric. NECK: Supple. No JVD. No lymphadenopathy. No thyromegaly. CHEST: Clear bilateral. HEART: S1, S2. No S3, S4, or murmur. ABDOMEN: Soft, bowel sounds present. No tenderness. EXTREMITIES: There is no change. IMPRESSION: 1. Stage 3 ulcer. 2. Peripheral vascular disease. 3. Right heel cellulitis with infected ulcer. 4. Diabetes mellitus with neuropathy. 5. Coronary artery disease. 6. Hypertension. 7. Arrhythmia, status post defibrillator. 8. Hyperlipidemia. 9. Left badyc-iam-sapj amputation. 10. Chronic kidney disease. 11. Angioplasties. PLAN: For tomorrow, plan is to continue with IV antibiotic. He is currently on vancomycin and Rocephin. Follow vancomycin troughs. The trough on the was 12.9. He is undergoing daily debridement per Podiatry. We will follow. MD TESFAYE Flood/CHANELL /[id number]
--- NOTE | 2018-12-15 19:25 | NUR ---
Received patient awake on bed, not in distress, call light within easy reach, advised to call anytime when needed right foot dressing intact, pink boot on. Will continue to monitor closely
[2018-12-15 20:00] VITALS: BP 141/65
[2018-12-15] MEDS: CEFTRIAXONE SOD 2 GM/NS 100 ML 100 ML IV SCH (21:00)
[2018-12-15] MEDS: TRAZODONE HCL 50 MG TAB PO PRN (21:12)
[2018-12-15] MEDS: HYDROCODONE/APAP 5MG-325MG TAB PO PRN (21:13)
[2018-12-16] VITALS (18 sets, daily range): BP systolic 69–160; BP diastolic 59–84
[2018-12-16] MEDS ORDERED: FENTANYL CITRATE/PF 100MCG/2 ML INJ ONE (06:50)
[2018-12-16] MEDS ORDERED: LIDOCAINE HCL 2% LOCAL 20 ML VIAL ONE ×2 (06:50→08:16)
[2018-12-16] MEDS ORDERED: MIDAZOLAM HCL 2 MG/2 ML VIAL ONE ×2 (06:50→08:11)
[2018-12-16] MEDS ORDERED: HEPARIN SOD (PORCINE) 1000 UNIT/ML 30ML ONE (06:50)
[2018-12-16] MEDS ORDERED: HEPARIN SOD/SOD CHLORIDE 2,000 ML ONE (06:51)
[2018-12-16] MEDS ORDERED: SODIUM CHLORIDE 0.9% 1000ML 1,000 ML ONE (06:51)
[2018-12-16] MEDS ORDERED: IOPAMIDOL 300MG/ML 100 ML INFUS..BTL IV ONE (06:51)
[2018-12-16] MEDS ORDERED: NITROGLYCERIN/D5W 200 MCG/ML 250 ML ONE (06:51)
[2018-12-16] MEDS: INSULIN REGULAR, HUMAN 100 UNIT/1 ML 3ML VIAL SQ SCH ×4 (07:30→21:47)
[2018-12-16] MEDS: GLIPIZIDE 5 MG TAB PO SCH ×2 (07:30→16:30)
[2018-12-16] MEDS ORDERED: BIVALRIUDIN 250 MG/VIAL VIAL IV ONE (08:36)
[2018-12-16] MEDS ORDERED: SODIUM CHLORIDE 0.9% 50ML 50 ML ONE (08:36)
--- NOTE | 2018-12-16 08:58 | NUR ---
0858 Pt in Rm #10, Identiferx2 s/p no fix peripheral procedure. Dr Farooq.Alert oriented and appropriate, PERRLA, respirations even and unlabored to room air. Pulses x2 radial palpable. Pedal pulses PT/DP strong Doppler only marked. heel dressing intake Foot warm to touch.Left below amputee.Cap fill brisk <greater 3 sec. foot pale. Skin warm and dry integrity appears intact in general. IV rt hand at 100cc/hr on iv controller started and presents healthy w/o s/s of infiltration or complaint. NS 0.9% started at 100ml/hr per dial flow. Abdomen soft and supple. pt offered toileting, denies need to urinate or defecate. Personal affects with patient. No at bedside.left groin [address] can pull at 1030am. Rt brittany failed access site. Did have quarter size semi firm old hematoma site which was addressed in medical laboratory assistant by pharmacy technologist. May return to floor care after sheath pull ds/rn
[2018-12-16] MEDS: FUROSEMIDE 40 MG TAB PO SCH ×2 (09:00→17:26)
[2018-12-16] MEDS: CLOPIDOGREL BISULFATE 75 MG TAB PO SCH (09:00)
[2018-12-16] MEDS: OMEPRAZOLE 20 MG CAP PO SCH (09:00)
[2018-12-16] MEDS: LISINOPRIL 20 MG TAB PO SCH (09:00)
[2018-12-16] MEDS: CARVEDILOL 12.5 MG TAB PO SCH ×2 (09:00→17:26)
[2018-12-16] MEDS ORDERED: ATROPINE SULFATE 0.1 MG/ML 10ML SYR ONE (09:45)
--- NOTE | 2018-12-16 10:36 | NUR ---
1036Shea puller Nazario Rn Dion Ramirez RN held 20min manual pull 6fr NO gross issues pain pallor pressure or dysthrhtmia. Mell patch in place down time remains for 6hrs end time 5pm .Ok to eat per attending orders. Rt hand iv infused Ns Site w/o s/s infiltration. Pt meets DC criteria. Returns to floor care Rm 297 . Margret and Gregg Rns escort.Denies Cp,Sob NO s/s bleeding at rt groin or left groin site. Rt foot has Doppler pulses. samantha/rn
--- NOTE | 2018-12-16 10:54 | Progress Note ---
DATE: 12/16/2018 SUBJECTIVE: The patient is a 73-year-old man with history of coronary artery disease, diabetes type 2, hypertension, left below-knee amputation, hyperlipidemia, presence of defibrillator, came to the emergency room with a stage III ulcer in the right heal. He was started on IV antibiotics and wound care. He was found to have peripheral artery disease. He is going for revascularization today. PHYSICAL EXAMINATION: GENERAL: He is awake and alert. VITAL SIGNS: Temperature is 96.7 and blood pressure 147/69. HEART: Regular rate. LUNGS: Clear to auscultation. ABDOMEN: Soft. LABORATORY DATA: On the blood work; white count 8.42, hemoglobin 9.1, hematocrit 21.1, and glucose 256. CT of the extremity shows diffuse soft tissue edema about the foot, apparent ulceration of posterior calcaneus, and apparently no osteomyelitis. ASSESSMENT: 1. Right heel cellulitis with infected ulcer. 2. Diabetes type 2 with foot ulcer. 3. Coronary artery disease, status post stent. 4. Hypertension. 5. Presence of defibrillator. 6. Hyperlipidemia. 7. Left below-knee amputation. 8. 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 9. Chronic kidney disease, stage 3. 10. Peripheral vascular disease for angiogram. PLAN: Today, the plan on this patient is to continue wound care and IV antibiotics. We are going to get a [facility] evaluation. Continue ADA diet, sliding scale with insulin. Continue all other medications. All this was discussed with the patient and all questions were answered to satisfaction. MD BRENDA Vidal/CHANELL /[id number]
--- NOTE | 2018-12-16 11:15 | NUR ---
PATIENT BACK TO UNIT FROM GOLDBEATER. HAD A HEART CATH WITH DRESSING DRY AND INTACT TO LEFT GROIN, NO HEMATOMA NOTED. ON BED REST TILL 5 PM, PATIENT AWARE OF PLAN OF CARE. DENIED PAIN AT THIS TIME. WILL CLOSELY MONITOR. V/S 97.4-70-16-142/84 AND 99% ON RA.
--- NOTE | 2018-12-16 12:27 | NUR ---
PATIENT ON BED REST. DRESSING DRY AND INTACT TO LEFT GROIN. V/S 97.0-70-18-123/75 AND 98% ON RA.
--- NOTE | 2018-12-16 13:05 | Operative Report ---
DATE OF PROCEDURE: SURGEON: Atif Farooq MD PROCEDURE: Third order peripheral angiogram of the right leg. PREOPERATIVE DIAGNOSES: 1. Severe peripheral vascular disease. 2. Nonhealing wound of the right foot. POSTOPERATIVE DIAGNOSES: 1. Severe peripheral vascular disease. 2. Nonhealing wound of the right foot. OPERATORS: Atif Farooq MD ANESTHESIA: Versed, fentanyl, and lidocaine. TECHNIQUE: The left groin was draped and prepped in the usual fashion. The area was anesthetized with lidocaine. Standard Seldinger technique was used to place a 6-Malaysian sheath into the left femoral artery without difficulty. A 6-Malaysian sheath was placed in the left femoral artery. The Advantage guidewire was used to exchange the 6-Malaysian sheath for 45 cm destination sheath, which was placed from the left common femoral artery to the right external iliac artery. Selective injections of the right leg were obtained. A 0.014 Fielder wire was then positioned into the popliteal artery. A support catheter was then passed over the wire and positioned in the right popliteal artery. Selective injections of the right tibial vessels were obtained. There were no complications. RESULTS: As follows: 1. The right internal iliac, right external iliac, right common iliac, and right common femoral artery had minimal disease. 2. The right dorsalis pedis artery and right proximal superficial femoral artery on the right had minimal disease. There was of moderate stenosis in the distal right superficial femoral artery about 50%. The popliteal artery was patent. 3. The trifurcation was severely diseased with 100% occlusion of the right anterior tibial, 100% occlusion of the posterior tibial, 100% occlusion of the peroneal artery, and about 90% stenosis in the tibioperoneal trunk. The patient's peroneal artery in the tibial artery on the right reconstituted briskly and filled by collaterals. CONCLUSION: The patient does has severe tibial disease in the right leg, I would favor a trial of local wound care and antibiotics for several weeks. If the patient fails and has a nonhealing ulcer, then I would consider high risk revascularization. Atif Farooq MD DSH/MODL /[id number] cc: Whitney Frank MD
--- NOTE | 2018-12-16 13:20 | Progress Note ---
DATE: 12/16/2018 SUBJECTIVE: The patient is seen this morning. Ulceration to the right heel getting better. Some granulation tissue noted. Has pedal pulses, which are diminished. Skin temperature warm to touch. OBJECTIVE: VITAL SIGNS: Afebrile with a temp of 96.7, pulse 66, respirations 20, blood pressure 147/69, and O2 saturation 98%. ASSESSMENT: Ulcers approximately 3-4 cm diameter down to subcutaneous tissue and muscle. Grade 3 ulcer with peripheral arterial disease and cellulitis. PLAN: We will continue Santyl followed by diluted wet-to-dry. Continue offloading with offloading boot. The patient will be going to quality assurance qa lab analyst today for possible angioplasty. CARMENZA Vu/CHANELL /[id number]
[2018-12-16] MEDS: COLLAGENASE 5 GM TUBE TOP SCH (14:00)
--- NOTE | 2018-12-16 15:48 | NUR ---
Nutrition Intervention Note RD Recommendation(s) for Physician: -Continue current diet. -Recommend Shayan BID to promote wound healing. -Recommend zinc sulfate 22 mg daily x 10 days, Vit C 500 mg BID, MVI with minerals daily to help promote wound healing if medically feasible. Plan of Care: RD following, monitoring for tolerance and adequacy. Shayan BID. Nutrition reason for involvement: Follow up RD Assessment 12/16: Follow up. Pt was NPO this am for angioplasty, tolerated procedure well. Pt reports good appetite and po intake, denies GI distress. No questions or concerns at time of visit. Chart reviewed. Current rec's remains appropriate. Will monitor and continue to follow. 12/12: 73 YOM admitted for foot infection with PMH listed below. Pt was seen lying in bed. Pt reports a good appetite and did not report any recent weight loss. Pt denied N/V, stated he has chronic constipation and denied chewing or swallowing issues as well as any food allergies. Per FS the pt has an unstageable wound on heel. Wound care has been consulted. Provided wound healing recommendations above and encouraged protein intake, pt denied ONS such as Ensure. Recommend Shayan BID to help promote wound healing, reported this to nurse who reported she will ask the MD. Pt is going for a debridement today per MD note, pt is going to have a CAT scan to rule out osteomyelitis. Pt was here in April and was 190 lbs suggesting no weight loss. Will continue to monitor. Principal Problems/Diagnoses: Foot infection PMH: coronary artery disease, diabetes type 2, hypertension, left below-knee amputation, hyperlipidemia, has defibrillator GI: :LBM: not recorded Skin: unstageable on heel, stage II on sacrum, wound on foot Labs: 12/16: POC Gluc 106-256 12/12: POC GM 226 Meds: norco, abx, lasix, insulin, glucotrol Ht: 83 inches is recorded with EMR, 73 inches is more appropriate Wt: 190 lbs BMI:19.6 kg/m^2BMI based on 73 inches: 25.1 kg/m^2 ABW: 91 kg Malnutrition Evaluation 12/12 The patient does not meet criteria for a specified degree of malnutrition at this time. Will re-evaluate at follow-up as appropriate. Nutrition Prescription (Diet Order):NPO at time of visit Estimated Nutritional Needs: Calories: 1638- 2002 (18-22 kcal/kg/day) Weight used : ABW 91 kg Protein : 109-136(1.2-1.5 gram/kg/day ) Weight used: ABW 91kg Diet Adequacy: Not meeting calorie needs, Not meeting protein needs Diet Education Needs Assessment: Diet education not indicated, pt on temporary/transition diet. Nutrition Care Level: low Nutrition Diagnosis: Inadequate protein intake related to medical condition as evidenced by possible unstageable pressure ulcer recorded within EMR. Goal: Patient will meet 75-100% of estimated needs by follow up Progress: goal met Interventions: - mineral (sodium). Fat. Cholesterol modified diet, Commercial beverage Prescription medications Multivitamin/mineral supplement therapy, Monitoring/Evaluation: -Total energy intake, Total protein intake Prescription medication, Modified diet, Liquid supplement, Weight change, Signed: Maye Hart RD, LD, [facility]
--- NOTE | 2018-12-16 17:00 | NUR ---
PATIENT VOIDED 400 CC OF CLEAR YELLOW URINE TO URINAL. EMPTIED AND CLEANSED. IN BED WITH CALL LIGHT AT REACH.
[2018-12-16] MEDS: VANCOMYCIN 1GM/NS 250 ML 250 ML IV SCH (18:30)
--- NOTE | 2018-12-16 19:00 | NUR ---
Received patient awake, no complaints of pain at this time, left groin dressing dry and intact, call light within easy reach, bed in low position and locked, will continue to monitor
[2018-12-16] MEDS: CEFTRIAXONE SOD 2 GM/NS 100 ML 100 ML IV SCH (21:46)
[2018-12-16] MEDS: HYDROCODONE/APAP 5MG-325MG TAB PO PRN (21:47)
[2018-12-16] MEDS: TRAZODONE HCL 50 MG TAB PO PRN (21:47)
[2018-12-17] VITALS (8 sets, daily range): BP systolic 117–148; BP diastolic 58–74
--- NOTE | 2018-12-17 07:16 | NUR ---
PATIENT IN BED RESTING WITH EYES CLOSED, NO S/S OF DISTRESS NOTED. DRESSING DRY AND INTACT TO RIGHT FOOT. SITE TO LEFT GROIN DRY AND INTACT, NO HEMATOMA. BED IN LOWER POSITION, CALL LIGHT AT REACH.
[2018-12-17] MEDS: INSULIN REGULAR, HUMAN 100 UNIT/1 ML 3ML VIAL SQ SCH ×4 (07:30→21:00)
[2018-12-17] MEDS: GLIPIZIDE 5 MG TAB PO SCH ×2 (08:00→17:46)
--- NOTE | 2018-12-17 08:58 | NUR ---
PATIENT NOTED WITH BLOOD SUGAR OF 58. NO S/S OF HYPOGLYCEMIA NOTED. ORANGE JUICE GIVEN AN WELL TOLERATED. PATIENT ALSO ATE HIS BREAKFAST. BLOOD SUGAR RECHECKED WITH THE READING OF 152. WILL CLOSELY MONITOR.
[2018-12-17] MEDS: FUROSEMIDE 40 MG TAB PO SCH ×2 (09:09→17:46)
[2018-12-17] MEDS: LISINOPRIL 20 MG TAB PO SCH (09:09)
[2018-12-17] MEDS: CLOPIDOGREL BISULFATE 75 MG TAB PO SCH (09:09)
[2018-12-17] MEDS: OMEPRAZOLE 20 MG CAP PO SCH (09:09)
[2018-12-17] MEDS: CARVEDILOL 12.5 MG TAB PO SCH ×2 (09:09→17:46)
--- NOTE | 2018-12-17 09:25 | NUR ---
Spoke to Dr Hayward about patient's refusal for LTAC and wish for hh and prosthesis and boot. states patient is not ready for that yet, states putting boot and prosthesis will compromise R remaining leg and put patient at high risk for amputation of that leg. wants to give patient more time this week to consider LTAC, CM to follow regarding patient's choice.
[2018-12-17] MEDS: COLLAGENASE 5 GM TUBE TOP SCH (10:00)
--- NOTE | 2018-12-17 11:03 | NUR ---
DRESSING CHANGED TO RIGHT HEEL ORDERED. IN BED RESTING WITH CALL LIGHT AT REACH.
--- NOTE | 2018-12-17 11:35 | Progress Note ---
DATE: 12/17/2018 SUBJECTIVE: Mr. Dickson is a 73-year-old male with history of coronary artery disease, diabetes type 2, hypertension, left below-knee amputation, hyperlipidemia, presence of defibrillator, came to the emergency room with a stage III ulcer in the right heel. He was started on wound care and IV antibiotic. Went for angiogram yesterday, he has a severe occlusion on the right lower extremity artery and so they could not open it. PHYSICAL EXAMINATION: GENERAL: Today, he is awake and alert. VITAL SIGNS: Temperature is 97.3 and blood pressure 139/74. HEART: Regular rate. LUNGS: Clear to auscultation. ABDOMEN: Soft. EXTREMITIES: Right heel is under dressing. LABORATORY DATA: On the blood work; white count 8.42, hemoglobin 9.1, hematocrit 28.1. Glucose 189. A blood culture so far negative. ASSESSMENT: 1. Right heel cellulitis with infected ulcers, stage III. 2. Diabetes type 2 with foot ulcer. 3. Coronary artery disease, status post stent. 4. Hypertension. 5. Presence of defibrillator. 6. Hyperlipidemia. 7. Left below-knee amputation. 8. 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 9. Chronic kidney disease, stage 3. 10. Severe peripheral vascular disease of the right lower extremity. PLAN: At the present time, he is to continue wound care, IV antibiotics. Continue ADA diet, sliding scale. See if the patient fails healing, he may need higher risks revascularization. We are offering him that probably he will be a good thing to transfer him to [facility] to continue wound care and IV antibiotics. The patient is not sure about that. We will discuss with Dr. Farooq and Dr. Hayward further disposition if the patient does not accept to go to [facility]. All this was discussed on extension with the patient. All questions were answered to satisfaction. MD BRENDA Vidal/CHANELL /[id number]
--- NOTE | 2018-12-17 13:20 | Consultation ---
DATE OF CONSULTATION: 12/17/2018 SUBJECTIVE: The patient at bedside, doing somewhat better. He is denying any history of fever, chills, nausea, or vomiting. OBJECTIVE: VITAL SIGNS: Afebrile, pulse rate 61, respirations 20, blood pressure 139/74, and O2 saturation 97%. EXTREMITIES: Pedal pulses diminished to the right lower extremity. Ulceration to the right heel starting to become once again necrotic down to muscle with no bone exposed. It is more than 3 to 4 cm in diameter. ASSESSMENT: Peripheral arterial disease with grade 3 ulceration, right foot. PLAN: We will continue Santyl collagenase followed by diluted wet-to-dry Betadine. The patient will need IV antibiotics for at least 3 to 4 more weeks. We will continue local wound care. I spoke with Dr. Farooq. Dr. Farooq said at this time he has complete blockage of his arteries [id number]. If needed within a couple weeks, he can try a retrograde approach to try to open up the arteries, but no guarantees can be given. CARMENZA Vu/CHANELL /[id number]
--- NOTE | 2018-12-17 15:29 | NUR ---
ID MD IN TO SEE PATIENT, NEW ORDER RECEIVED FOR VANC TROUGH BEFORE THE NEXT DOSE.
--- NOTE | 2018-12-17 18:47 | NUR ---
SPOKE WITH DR BARNARD'S PA REGARDING ABNORMAL LAB RESULT. NO NEW ORDER RECEIVED.
[2018-12-17] MEDS: VANCOMYCIN 1GM/NS 250 ML 250 ML IV SCH (19:20)
[2018-12-17] MEDS: CEFTRIAXONE SOD 2 GM/NS 100 ML 100 ML IV SCH (21:00)
--- NOTE | 2018-12-17 21:30 | NUR ---
PATIENT RESTING IN BED WATCHING TELEVISION, NO SIGNS OF DISTRESS NOTED. PATIENT VOICES NO PAIN AT THIS TIME AND IV MEDICATIONS ARE RUNNING ORDERED. WOUND ON RIGHT FOOT IS DRY AND CLEAN, BED IS IN LOWEST POSITION, SIDE RAILS ARE UP, CALL LIGHT WITHIN REACH, WILL CONTINUE TO MONITOR.
[2018-12-18] VITALS (7 sets, daily range): BP systolic 121–174; BP diastolic 69–89
[2018-12-18 06:18] LABS: HEMATOCRIT 24.5 % (38.2-49.6); MEAN CORPUSCULAR HEMOGLOBIN 30.2 pg (28-32); MEAN CORPUSCULAR HGB CONC 32.7 g/dL (31-35); MEAN CORPUSCULAR VOLUME 92.5 fL (81-99); PLATELET COUNT 287 x10e3/uL (140-360); RED BLOOD COUNT 2.65 x10e6/uL (4.3-5.7); RED CELL DISTRIBUTION WIDTH 12.6 % (11.7-14.4)
[2018-12-18 06:29] LABS: ANION GAP 13.7 mmol/L (8-16); CALCIUM 9.3 mg/dL (8.4-10.2); CREATININE, SERUM 2.01 mg/dL (0.72-1.25); POTASSIUM 3.7 mmol/L (3.5-5.1)
[2018-12-18] MEDS: INSULIN REGULAR, HUMAN 100 UNIT/1 ML 3ML VIAL SQ SCH ×4 (07:30→20:15)
[2018-12-18] MEDS: GLIPIZIDE 5 MG TAB PO SCH ×2 (08:30→17:58)
[2018-12-18] MEDS: LISINOPRIL 20 MG TAB PO SCH (09:00)
[2018-12-18] MEDS: CARVEDILOL 12.5 MG TAB PO SCH ×2 (09:00→18:00)
--- NOTE | 2018-12-18 09:23 | NUR ---
discussed ltac with patient. He is not thrilled but after his discussion with podiatry yesterday he gives choice to [facility]. choice letter signed and placed on chart. rep notified.
[2018-12-18] MEDS: FUROSEMIDE 40 MG TAB PO SCH ×2 (09:57→17:00)
[2018-12-18] MEDS: CLOPIDOGREL BISULFATE 75 MG TAB PO SCH (09:57)
[2018-12-18] MEDS: OMEPRAZOLE 20 MG CAP PO SCH (09:57)
[2018-12-18] MEDS: COLLAGENASE 5 GM TUBE TOP SCH (10:00)
--- NOTE | 2018-12-18 12:26 | Discharge Summary ---
HOSPITAL COURSE: Mr. Dickson is a 73-year-old man with history of coronary artery disease, diabetes, hypertension, left below amputation, hyperlipidemia, presence of pacemaker, came to the emergency room with a stage III right heel ulcer. He was started on wound care and IV antibiotics. He had angiogram that shows severe occlusion of the right lower extremity artery, that could not be opened. The patient is agreeable now to go LTAC, so [facility] evaluation is requested. PHYSICAL EXAMINATION: GENERAL: He is awake and alert. VITAL SIGNS: Temperature is 98.3, blood pressure is 171/89. HEART: Regular rate. LUNGS: Clear to auscultation. ABDOMEN: Soft. LABORATORY DATA: On the blood work, white count is 9.78, hemoglobin is 8, hematocrit is 24.5. Potassium 3.7, creatinine is 2.01, glucose is 179. Blood culture so far negative. DISCHARGE DIAGNOSES: 1. Right heel cellulitis with infected ulcer, stage III. 2. Severe peripheral vascular disease of the right lower extremity. 3. Diabetes type 2 with foot ulcer. 4. Coronary artery disease, status post stent. 5. Hypertension. 6. Presence of defibrillator. 7. Hyperlipidemia. 8. Left below-knee amputation. 9. 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 10. Chronic kidney disease, stage 3. PLAN: At present time is to continue wound care, IV antibiotics, ADA diet, sliding scale. So far, the patient is high risk for revascularization, so we are going to continue medical treatment and see if the wound improves with IV antibiotics and wound care. The patient now is agreeable to go to LTAC, so we will transfer him once he is accepted. Please see home medication reconciliation list. All this was discussed with the patient. All questions were answered to satisfaction. MD BRENDA Vidal/CHANELL /[id number]
--- NOTE | 2018-12-18 12:30 | NUR ---
PT BLOOD SUGAR IS 248 BUT PT DOESNBT WANT 8 UNIT INSULIN SCHEDULED. PT REQUESTING ONLY 4 UNITS.
--- NOTE | 2018-12-18 12:49 | NUR ---
PAGED DR. MUNIZ REGARDING PT BLOOD SUGAR AND REFUSAL OF INSULIN. WAITING FOR CALL BACK.
--- NOTE | 2018-12-18 13:57 | Progress Note ---
DATE: 12/18/2018 SUBJECTIVE: The patient at bedside, decreased pain to the right lower extremity. He is denying any history of fever, chills, nausea, or vomiting. OBJECTIVE: VITAL SIGNS: Afebrile, pulse rate 72, respirations 20, blood pressure 151/69, and O2 saturation 96%. EXTREMITIES: Pedal pulses diminished to both the DP and PT. Skin temperature warm to touch. Has a grade 3 ulcer posterior aspect, right heel, measuring more than 3 to 4 cm in diameter. Some necrosis noted with periwound cellulitis, but negative foul smell. LABORATORY DATA: Labs show white blood cell count of 9.78, hemoglobin 8.0 with a platelet count of 283. Blood glucose of 179. ASSESSMENT: Grade 3 ulcer with peripheral arterial disease. PLAN: We will continue local wound care. Continue IV antibiotics. The patient will eventually be transferred to [facility] for continue conservative treatment plus include HBO therapy. The patient understands if not responsive may end up losing part of his foot. We will treat conservatively for now. CARMENZA Vu/CHANELL /[id number]
--- NOTE | 2018-12-18 17:45 | NUR ---
PT INFORMED HE DOESNT WANT LASIX BID. HE NEED ONLY ONE TIME A DAY. ALSO PT WANT ONLY 4 UNITS INSULIN.
--- NOTE | 2018-12-18 19:00 | NUR ---
BEDSIDE SHIFT REPORT GIVEN TO THE GLEASON GEAR GENERATOR RN. PT DENIED FURTHER NEEDS.
[2018-12-18] MEDS: CEFTRIAXONE SOD 2 GM/NS 100 ML 100 ML IV SCH (20:15)
--- NOTE | 2018-12-18 20:15 | NUR ---
PATIENT RESTING IN BED, NO SIGNS OF DISTRESS NOTED. PATIENT VOICES NO PAIN AT THIS TIME AND IV MEDICATIONS ARE RUNNING ORDERED. WOUND ON RIGHT FOOT IS DRY AND CLEAN, BLOOD SUGAR WAS 223 AND SET TO RECEIVE 8 UNITS, BUT PATIENT ONLY REQUESTED TO RECEIVE ONLY 4 UNITS. BED IS IN LOWEST POSITION, SIDE RAILS ARE UP, CALL LIGHT WITHIN REACH, WILL CONTINUE TO MONITOR.
[2018-12-18] MEDS: VANCOMYCIN 1GM/NS 250 ML 250 ML IV SCH (21:12)
[2018-12-18] MEDS: TRAZODONE HCL 50 MG TAB PO PRN (21:47)
[2018-12-19] VITALS (7 sets, daily range): BP systolic 134–161; BP diastolic 65–74
--- NOTE | 2018-12-19 07:00 | NUR ---
BEDSIDE SHIFT REPORT RECEIVED FROM THE CARE SPECIALIST RN. PT DENIES NEEDS AT THIS TIME.
[2018-12-19] MEDS: INSULIN REGULAR, HUMAN 100 UNIT/1 ML 3ML VIAL SQ SCH ×4 (07:30→21:00)
--- NOTE | 2018-12-19 07:50 | NUR ---
PT BLOOD SUGAR 56. PT AAOX4. NO DISTRESS NOTED. 8 FL OZ ORANGE JUICE GIVEN AND WILL RECHECK BLOOD SUGAR.
--- NOTE | 2018-12-19 08:00 | NUR ---
EDUCATED PT ABOUT FALL PRECAUTIONS. CALL LIGHT WITH IN EASY REACH. INSTRUCTED PT TO USE CALL LIGHT FOR ALL THE NEEDS. PT VERBALIZED UNDERSTANDING. BED IS LOW AND LOCKED. SIDE RAILS X2. PT DENIES NEEDS AT THIS TIME.
--- NOTE | 2018-12-19 08:25 | NUR ---
RECHECKED PT BLOOD SUGAR. PT HAD BREAKFAST. BS 130 NOTED.
[2018-12-19] MEDS: GLIPIZIDE 5 MG TAB PO SCH ×2 (08:30→17:13)
[2018-12-19] MEDS: CLOPIDOGREL BISULFATE 75 MG TAB PO SCH (09:15)
[2018-12-19] MEDS: OMEPRAZOLE 20 MG CAP PO SCH (09:15)
[2018-12-19] MEDS: CARVEDILOL 12.5 MG TAB PO SCH ×2 (09:18→17:13)
[2018-12-19] MEDS: FUROSEMIDE 40 MG TAB PO SCH ×2 (09:19→17:13)
[2018-12-19] MEDS: LISINOPRIL 20 MG TAB PO SCH (09:19)
[2018-12-19] MEDS: COLLAGENASE 5 GM TUBE TOP SCH (09:20)
--- NOTE | 2018-12-19 09:50 | NUR ---
DR. MUNIZ AT BEDSIDE. INFORMED PT LOW BLOOD SUGAR. NEW ORDER FOR HUMULIN LOW SLIDING SCALE.
--- NOTE | 2018-12-19 09:55 | NUR ---
INFORMED DR. MUNIZ ABOUT PT REFUSING INSULIN .
[2018-12-19] MEDS ORDERED: DEXTROSE 50% SYRINGE 50 ML IV PRN (10:15)
--- NOTE | 2018-12-19 12:30 | NUR ---
PT REFUSED INSULIN. PER THE PT, HE WILL THINK ABOUT TAKING INSULIN IN THE EVENING.
--- NOTE | 2018-12-19 14:43 | Progress Note ---
DATE: 12/19/2018 SUBJECTIVE: The patient at bedside. No distress. Decreased pain to the right lower extremity. Denies any history of fever, chills, nausea, or vomiting. OBJECTIVE: VITAL SIGNS: Afebrile, pulse rate 69, respirations 20, blood pressure 158/74, and O2 saturation 97%. EXTREMITIES: Ulceration to the posterior aspect of the right heel starting to become necrotic once again secondary to his poor circulation. Periwound cellulitis present with no foul smell. Ulcer is more than 4 to 5 cm in diameter. LABORATORY DATA: Labs noted. He has a white blood cell count of 9.7. ASSESSMENT: Grade 3 ulcer, right heel with peripheral arterial disease and diabetic neuropathy. PLAN: We will continue local wound care with Santyl followed by diluted wet-to-dry Betadine. Ulceration will need to be debrided once again. The patient aware if not responsive may end up needing an amputation down the road. We will treat conservatively. The patient will be transferred to [place] eventually for HBO therapy. CARMENZA Vu/CHANELL /[id number]
--- NOTE | 2018-12-19 15:12 | NUR ---
Patient has been denied for LTAC. Mail List Librarian for [employer] is reaching out to Dr. Frank to see if she wants to do a [id number]. CM to follow.
--- NOTE | 2018-12-19 18:10 | Discharge Summary ---
HOSPITAL COURSE: Mr. Dickson is a 73-year-old man with history of coronary artery disease, diabetes, hypertension, left below-knee amputation, hyperlipidemia, presence of defibrillator, came to the emergency room because he had a stage III right heel ulcer. He was started on IV antibiotics and wound care. He has severe occlusion of the arteries in the right lower extremity that could not be opened and the plan is to transfer him to [facility] once we get the insurance approval. PHYSICAL EXAMINATION: GENERAL: Today, he is awake and alert. He is feeling better. VITAL SIGNS: Temperature is 97.8, blood pressure 158/74. HEART: Regular rate. LUNGS: Clear to auscultation. ABDOMEN: Soft. LABORATORY DATA: On the blood work, white count 9.78, hemoglobin 8, hematocrit 24.5. Glucose today was 56. Blood cultures so far negative. ASSESSMENT: 1. Right heel cellulitis with infected ulcers, stage III. 2. Severe peripheral vascular disease of the right lower extremity. 3. Diabetes type 2 with foot ulcer. 4. Coronary artery disease, status post stent. 5. Hypertension. 6. Presence of defibrillator. 7. Left below-knee amputation. 8. Hyperlipidemia. 9. 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 10. Chronic kidney disease, stage 3. PLAN: At present time is to transfer the patient to the [facility] once he is accepted to continue wound care and IV antibiotics. Continue ADA diet, sliding scale with insulin. Infectious Disease and hide buffer and loan consultant are following patient with me. Please see home medication reconciliation list. All this was discussed with the patient. All questions were answered to satisfaction. MD BRENDA Vidal/CHANELL /[id number]
--- NOTE | 2018-12-19 19:00 | NUR ---
BEDSIDE SHIFT REPORT GIVEN TO THE RECRUITER MANAGER RN. PT DENIED FURTHER NEEDS.
--- NOTE | 2018-12-19 19:15 | NUR ---
patient received awake, alert, lying quietly in bed. right foot dressing c,d,i. no c/o pain noted. pm assessment complete. patient instructed to call for assistance when needed.
[2018-12-19] MEDS: CEFTRIAXONE SOD 2 GM/NS 100 ML 100 ML IV SCH (20:00)
--- NOTE | 2018-12-19 20:45 | NUR ---
Received report from nurse.
[2018-12-19] MEDS: VANCOMYCIN 1GM/NS 250 ML 250 ML IV SCH (21:00)
--- NOTE | 2018-12-19 22:27 | NUR ---
Paged Dr Leigh. Patient vanco trough at 17.3 MD states to give vanco. Order completed.
[2018-12-20] VITALS (7 sets, daily range): BP systolic 126–155; BP diastolic 69–80
--- NOTE | 2018-12-20 | NUR ---
Patient requested a sleep pill. Med given as ordered by . Continue monitor.
--- NOTE | 2018-12-20 01:00 | NUR ---
IV leaking. Restarted IV to right F/A x1 stick. Patient tolerated well. 20G
[2018-12-20] MEDS: TRAZODONE HCL 50 MG TAB PO PRN (01:08)
--- NOTE | 2018-12-20 06:48 | NUR ---
Patient resting quitly at this time.
[2018-12-20] MEDS: INSULIN REGULAR, HUMAN 100 UNIT/1 ML 3ML VIAL SQ SCH ×4 (07:30→21:00)
[2018-12-20] MEDS: FUROSEMIDE 40 MG TAB PO SCH ×2 (08:54→17:40)
[2018-12-20] MEDS: CARVEDILOL 12.5 MG TAB PO SCH ×2 (08:54→17:40)
[2018-12-20] MEDS: GLIPIZIDE 5 MG TAB PO SCH ×2 (08:54→17:40)
[2018-12-20] MEDS: CLOPIDOGREL BISULFATE 75 MG TAB PO SCH (08:54)
[2018-12-20] MEDS: OMEPRAZOLE 20 MG CAP PO SCH (08:54)
[2018-12-20] MEDS: LISINOPRIL 20 MG TAB PO SCH (08:55)
[2018-12-20] MEDS: COLLAGENASE 5 GM TUBE TOP SCH (14:47)
--- NOTE | 2018-12-20 16:24 | Progress Note ---
DATE: SUBJECTIVE: Mr. Dickson is currently lying in bed comfortably. REVIEW OF SYSTEMS: HEENT: Negative. PULMONARY: Negative. CARDIAC: Negative. PHYSICAL EXAMINATION: GENERAL: He is currently alert, oriented, does not seem in acute distress. VITAL SIGNS: Stable, currently afebrile. HEENT: Not icteric. NECK: Supple. CHEST: Clear. HEART: S1, S2. No murmur. No S3, S4, or murmur. ABDOMEN: Soft. Bowel sounds present. No tenderness. EXTREMITIES: Edema. The heel seems to be stable. IMPRESSION: 1. Right heel cellulitis with ulcer with osteomyelitis from peripheral vascular disease with neuropathy. 2. Diabetes mellitus with neuropathy. 3. Hypertension. 4. Defibrillator from left [id number]-[id number] amputation for hyperlipidemia. The patient is planned to go to [place] to resume his antibiotic for another four weeks. He is currently on vancomycin and Rocephin by weekly CBC by weekly Chem panel. Follow vancomycin trough, the last time was 17.3. 5. We will follow with you. Discussed with the patient. Continue local care. The patient is still at risk for amputation [id number]. MD TESFAYE Flood/CHANELL /[id number]
--- NOTE | 2018-12-20 16:40 | Progress Note ---
DATE: Internal Medicine Progress Note SUBJECTIVE: The patient is doing well. No significant complaint. OBJECTIVE: VITAL SIGNS: Blood pressure 152/80, temperature 97.7, heart rate 66 per minute, respiratory rate 18 per minute, oxygen saturation 98%. HEART: Showed regular rhythm. Normal S1, S2 sound. LUNGS: Clear bilaterally. ABDOMEN: Soft. EXTREMITIES: Show necrotic area on the left. LABORATORY DATA: On the BMP; sodium 141, potassium 3.7, chloride 105, CO2 26, BUN 34, creatinine 2.01, glucose 179. On the CBC, white blood count 9.78, hemoglobin 8.0, hematocrit 24.5, platelet count 287,000. AST 12, ALT 11, total bilirubin 0.8, alkaline phosphatase 95. IMPRESSION: 1. Open wound and cellulitis on the left heel. 2. Another diagnosis is chronic renal failure stage 3 to 4. 3. History of peripheral vascular disease. 4. Anemia of chronic disease secondary to chronic renal failure. PLAN OF TREATMENT: Continue ceftriaxone 2 g IV daily, vancomycin 1 g IV once a day. Received influenza vaccine. He received pneumonia vaccine. He is on glipizide 10 mg twice a day. He is on lisinopril 40 mg daily, carvedilol 25 mg twice a day, trazodone 50 mg at bedtime, Plavix 75 mg daily. Omeprazole 20 mg daily, collagenase 1 g applied locally to the left heel daily, furosemide 40 mg twice a day. Continue monitoring blood sugar before meals and at bedtime. Another diagnosis is uncontrolled diabetes mellitus type 2 with diabetic nephropathy. Another diagnosis is hypertension with possible hypertensive nephropathy. Continue wound care. Dr. Hayward is on the case from Podiatry, Dr. Leigh for Infectious Disease, Dr. Atif Farooq for Cardiology. MD HARISH Acevedo/CHANELL /[id number]
--- NOTE | 2018-12-20 19:23 | NUR ---
Received change of shift report from AM nurse. Walking rounds completed.
[2018-12-20] MEDS: VANCOMYCIN 1GM/NS 250 ML 250 ML IV SCH (20:29)
--- NOTE | 2018-12-20 22:46 | Progress Note ---
DATE: 12/20/2018 SUBJECTIVE: The patient at bedside, doing okay. Denies any history of fever, chills, nausea, or vomiting. OBJECTIVE: VITAL SIGNS: Afebrile, pulse rate 66, respirations 18, blood pressure 152/80, and O2 saturation 98%. LABORATORY DATA: White blood cell count of 9.7. He has a grade 3 ulcer on posterior aspect of right heel, more than 3-4 cm diameter, some necrotic scab noted down to muscle. No bone or tendon exposed. ASSESSMENT: Grade 3 ulcer with cellulitis and peripheral arterial disease. PLAN: Sharp excisional debridement of the ulcers will be once again done at bedside tomorrow. We will treat conservatively with local wound care with Santyl followed by diluted wet-to-dry. The patient will be transferred to [place] eventually for continued local wound care IV and possible HBO therapy. CARMENZA Vu/CHANELL /[id number]
[2018-12-21] VITALS (8 sets, daily range): BP systolic 113–169; BP diastolic 61–91
--- NOTE | 2018-12-21 | NUR ---
Patient requested sleep pill. Med given as ordered by .
--- NOTE | 2018-12-21 03:26 | NUR ---
Patient resting quitly at this time. Continue monitor.
[2018-12-21] MEDS: INSULIN REGULAR, HUMAN 100 UNIT/1 ML 3ML VIAL SQ SCH ×4 (07:30→21:00)
[2018-12-21] MEDS: OMEPRAZOLE 20 MG CAP PO SCH (08:00)
[2018-12-21] MEDS: FUROSEMIDE 40 MG TAB PO SCH ×2 (08:00→17:34)
[2018-12-21] MEDS: LISINOPRIL 20 MG TAB PO SCH (08:00)
[2018-12-21] MEDS: CARVEDILOL 12.5 MG TAB PO SCH ×2 (08:00→17:34)
[2018-12-21] MEDS: GLIPIZIDE 5 MG TAB PO SCH ×2 (08:00→17:34)
[2018-12-21] MEDS: CLOPIDOGREL BISULFATE 75 MG TAB PO SCH (08:00)
[2018-12-21] MEDS: COLLAGENASE 5 GM TUBE TOP SCH (10:00)
[2018-12-21] MEDS: HYDROCODONE/APAP 5MG-325MG TAB PO PRN ×2 (10:26→17:38)
--- NOTE | 2018-12-21 11:48 | Progress Note ---
DATE: 12/21/2018 SUBJECTIVE: The patient at bedside, doing well, in no distress. Denies any history of fever, chills, nausea, vomiting, or shortness of breath. OBJECTIVE: VITAL SIGNS: Afebrile, pulse rate 70, respirations 21, blood pressure 155/78, and O2 saturation 96%. EXTREMITIES: Ulceration to the right heel, 4 cm in diameter down to muscle, very close to bone. Some periwound cellulitis present with no foul smell. Necrotic scab noted, 4 cm in diameter. Pedal pulses are diminished to both the DP and PT. Skin temperature warm to touch on this date. LABORATORY DATA: Labs show a white blood cell count of 9.7. ASSESSMENT: Peripheral arterial disease with a grade 3 ulceration with diabetic neuropathy. PLAN: After proper consent the patient under no anesthesia secondary to his peripheral neuropathy, sharp excisional debridement of the ulcer was carried down to muscle. Devitalized tissue sharply excised via the use of a sterile 10 blade until good viable bleeding tissue was achieved with the assistance of the nurse. Good bleeding tissue was achieved. The area was then copiously flushed with sterile saline. Santyl collagenase was then applied followed by diluted wet-to-dry Betadine. Offloading boot was applied. The patient put to under cast to offload heel as best as possible. We will treat conservatively for now. If not responsive, may end up needing amputation down the road. The ulcer measuring 4 cm in diameter after the sharp excisional debridement was carried down to muscle. No pus pockets were encountered. CARMENZA Vu/CHANELL /[id number]
--- NOTE | 2018-12-21 14:34 | Progress Note ---
DATE: Internal Medicine Progress Note SUBJECTIVE: The patient underwent debridement on the right heel, where he had a necrotic area. PHYSICAL EXAMINATION: VITAL SIGNS: Blood pressure 118/70, temperature 98.4, heart rate 67 per minute, respiratory rate 18 per minute, oxygen saturation 97%. HEART: Showed regular rhythm. Normal S1, S2 sound. LUNGS: Clear bilaterally. EXTREMITIES: Showed left below-knee amputation and right heel wound. LABORATORY DATA: On the blood work, we have a BMP; sodium 141, potassium 3.7, chloride 105, CO2 26, BUN 34, creatinine 2.01, glucose 179. On CBC; white blood count 9.78, hemoglobin 8.0, hematocrit 24.5, platelet count 287,000. AST 12, ALT 11, total bilirubin 0.8, alkaline phosphatase 95. IMPRESSION: 1. Cellulitis on the right heel, status post debridement. 2. Chronic renal failure, stage 3. 3. Peripheral vascular disease. 4. Chronic anemia secondary to chronic renal failure. 5. Uncontrolled diabetes mellitus, type 2 with chronic renal failure. 6. Hypertension with hypertensive nephropathy. PLAN OF TREATMENT: Continue vancomycin 1 g IV once a day. Continue carvedilol 25 mg twice a day, lisinopril 40 mg daily, collagenase 1 g topically daily, Plavix 75 mg daily, omeprazole 20 mg daily. Continue furosemide 40 mg twice a day, D50 IV push as needed for hypoglycemia. Continue monitoring blood sugar before meals and at bedtime. Continue glipizide 10 mg twice a day, trazodone 50 mg at bedtime, [place] 1 tablet q.6 hours as needed. Continue renal diet. MD HARISH Acevedo/FREDERICL /[id number]
[2018-12-21] MEDS ORDERED: DOCUSATE SODIUM 100 MG CAP PO PRN (17:45)
--- NOTE | 2018-12-21 19:34 | NUR ---
RECEIVED PT IN BED AOX3 .RT FOOT WITH DRESSING .RT FA 20G S/L .FAMILY AT THE BESIDE .CALL LIGHT WITH IN REACH .CONTINUE TO MONITOR
[2018-12-21] MEDS: VANCOMYCIN 1GM/NS 250 ML 250 ML IV SCH (21:35)
[2018-12-22] VITALS (9 sets, daily range): BP systolic 105–147; BP diastolic 65–78
[2018-12-22] MEDS: HYDROCODONE/APAP 5MG-325MG TAB PO PRN ×3 (00:25→21:30)
--- NOTE | 2018-12-22 06:14 | NUR ---
PT RESTED DURING THE NIGHT C/O PAIN .AND GIVEN NORCO X2 .CALL LIGHT WITH IN REACH .CONTINUE TO MONITOR
[2018-12-22] MEDS: GLIPIZIDE 5 MG TAB PO SCH ×2 (06:25→17:30)
--- NOTE | 2018-12-22 07:03 | NUR ---
BEDSIDE REPORT GIVEN TO THE ONCOMING NURSE
[2018-12-22] MEDS: INSULIN REGULAR, HUMAN 100 UNIT/1 ML 3ML VIAL SQ SCH ×4 (07:30→21:00)
[2018-12-22] MEDS: FUROSEMIDE 40 MG TAB PO SCH ×2 (09:30→17:30)
[2018-12-22] MEDS: COLLAGENASE 5 GM TUBE TOP SCH (09:30)
[2018-12-22] MEDS: OMEPRAZOLE 20 MG CAP PO SCH (09:30)
[2018-12-22] MEDS: CLOPIDOGREL BISULFATE 75 MG TAB PO SCH (09:30)
[2018-12-22] MEDS: LISINOPRIL 20 MG TAB PO SCH (11:00)
[2018-12-22] MEDS: CARVEDILOL 12.5 MG TAB PO SCH ×2 (11:00→17:30)
--- NOTE | 2018-12-22 11:08 | Progress Note ---
DATE: 12/22/2018 SUBJECTIVE: Mr. Dickson is a 73-year-old man with history of coronary artery disease, diabetes, hypertension, left below-knee amputation, hyperlipidemia, presence of defibrillator, came to the emergency room with stage III right heel ulcer. He was started on wound care and IV antibiotics. He has severe occlusion of the arteries on the right lower extremity and that could not be opened at the present time. He was deny from LTAC by insurance, was trying to do a peer to peer. PHYSICAL EXAMINATION: GENERAL: Today, he is awake and alert. VITAL SIGNS: Temperature is 97.6 and blood pressure 105/65. HEART: Regular rate. LUNGS: Clear to auscultation. ABDOMEN: Soft. EXTREMITIES: Right foot is under dressing. LABORATORY DATA: On the blood work, white count is 9.78, hemoglobin is 8, and hematocrit 24.5. Glucose 250. ASSESSMENT: 1. Right heel cellulitis with infected ulcer, stage III. 2. Severe peripheral vascular disease. 3. Diabetes type 2 with foot ulcer. 4. Coronary artery disease, status post stent. 5. Hypertension. 6. Presence of defibrillator. 7. Left below-knee amputation. 8. Hyperlipidemia. 9. 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 10. Chronic kidney disease, stage 3. PLAN: At the present time is to continue IV antibiotics, wound care, ADA diet, and sliding scale with insulin. Cardiology and Podiatry following the patient with me. The patient was denied by insurance for LTAC. We are going to do a peer to peer. All this was discussed in extension with the patient. All questions were answered to satisfaction. MD BRENDA Vidal/CHANELL /[id number]
--- NOTE | 2018-12-22 12:03 | Progress Note ---
DATE: 12/22/2018 SUBJECTIVE: The patient at bedside, doing well. Denies any history of fever, chills, nausea, or vomiting. OBJECTIVE: VITAL SIGNS: Afebrile, pulse rate 68, respirations 17, blood pressure 105/65, and O2 saturation 96%. EXTREMITIES: Dressing shows some bloody strike through. CFT to all toes, right lower extremity less than 5 seconds. Skin temperature warm to touch. ASSESSMENT: Grade 3 ulceration right foot with cellulitis and peripheral arterial disease. PLAN: We will continue to treat with local wound care and offloading. The patient awaiting to be transferred to [facility] for possible HBO therapy and IV and local wound care to try to salvage the foot. We will continue to treat conservatively for now. The patient understands if not responsive, may need further debridement, which may include partial calcanectomy or even avwxm-ijs-hxfk amputation down the road. CARMENZA Vu/CHANELL /[id number]
--- NOTE | 2018-12-22 16:16 | NUR ---
Nutrition Intervention Note RD Recommendation(s) for Physician: -Continue current diet. -Recommend Shayan BID to promote wound healing. -Recommend zinc sulfate 22 mg daily x 10 days, Vit C 500 mg BID, MVI with minerals daily to help promote wound healing if medically feasible. Plan of Care: RD following, monitoring for tolerance and adequacy. Shayan BID. Nutrition reason for involvement: Follow up RD Assessment 12/22: Follow up. Pt with good appetite and po intake, noted 50-100% of meals per chart. Pt continues with foot wound, place to discharge to LTAC pending approval. RD rec's placed in chart for MD, current rec's remain appropriate. Chart reviewed. Will monitor and continue to follow. 12/16: Follow up. Pt was NPO this am for angioplasty, tolerated procedure well. Pt reports good appetite and po intake, denies GI distress. No questions or concerns at time of visit. Chart reviewed. Current rec's remains appropriate. Will monitor and continue to follow. 12/12: 73 YOM admitted for foot infection with PMH listed below. Pt was seen lying in bed. Pt reports a good appetite and did not report any recent weight loss. Pt denied N/V, stated he has chronic constipation and denied chewing or swallowing issues as well as any food allergies. Per FS the pt has an unstageable wound on heel. Wound care has been consulted. Provided wound healing recommendations above and encouraged protein intake, pt denied ONS such as Ensure. Recommend Shayan BID to help promote wound healing, reported this to nurse who reported she will ask the MD. Pt is going for a debridement today per MD note, pt is going to have a CAT scan to rule out osteomyelitis. Pt was here in April and was 190 lbs suggesting no weight loss. Will continue to monitor. Principal Problems/Diagnoses: Foot infection PMH: coronary artery disease, diabetes type 2, hypertension, left below-knee amputation, hyperlipidemia, has defibrillator GI: LBM 12/22 Skin: unstageable on heel, stage II on sacrum, wound on foot Labs: 12/22: POC Gluc 189-250 12/16: POC Gluc 106-256 12/12: POC GM 226 Meds: prilosec, lasix, glucotrol, abx, colace, insulin Ht: 83 inches is recorded with EMR, 73 inches is more appropriate Wt: 190 lbs BMI: 19.6 kg/m^2BMI based on 73 inches: 25.1 kg/m^2 ABW: 91 kg Malnutrition Evaluation 12/12 The patient does not meet criteria for a specified degree of malnutrition at this time. Will re-evaluate at follow-up as appropriate. Nutrition Prescription (Diet Order): 1800 ADA Estimated Nutritional Needs: Calories: 1638- 2002 (18-22 kcal/kg/day) Weight used : ABW 91 kg Protein : 109-136(1.2-1.5 gram/kg/day ) Weight used: ABW 91kg Diet Adequacy: Meeting calorie needs, meeting protein needs Diet Education Needs Assessment: Diet education not indicated at this time. Nutrition Care Level: low Nutrition Diagnosis: Inadequate protein intake related to medical condition as evidenced by possible unstageable pressure ulcer recorded within EMR. Goal: Patient will meet 75-100% of estimated needs by follow up Progress: goal met Interventions: - mineral (sodium). Fat. Cholesterol modified diet, Commercial beverage Prescription medications Multivitamin/mineral supplement therapy, Monitoring/Evaluation: -Total energy intake, Total protein intake Prescription medication, Modified diet, Liquid supplement, Weight change, Signed: Maye Hart RD, LD, [facility]
--- NOTE | 2018-12-22 17:02 | NUR ---
late entery 12/21 'doing well no complaints U Mr. Dickson is a 73-year-old man with history of coronary artery disease, diabetes, hypertension, left below-knee amputation, hyperlipidemia, presence of defibrillator, came to the emergency room with stage III right heel ulcer . He was started on wound care and IV antibiotics. He has severe occlusion of the arteries on the right lower extremity and that could not be opened at the present time. He was deny from LTAC by insurance, meds list reviewd vitals stable labs seen PHYSICAL EXAMINATION: GENERAL: Today, he is awake and alert. VITAL SIGNS: Temperature is 97.6 and blood pressure 105/65. HEART: Regular rate. LUNGS: Clear to auscultation. ABDOMEN: Soft. EXTREMITIES: Right foot is under dressing. LABORATORY DATA: On the blood work, white count is 9.78, hemoglobin is 8, and hematocrit 24.5. Glucose 250. ASSESSMENT: 1. Right heel cellulitis with infected ulcer, stage III.treat as om 2. Severe peripheral vascular disease. 3. Diabetes type 2 with foot ulcer. 4. Coronary artery disease, status post stent. 5. Hypertension. 6. Presence of defibrillator. 7. Left below-knee amputation. 8. Hyperlipidemia. 9. 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 10. Chronic kidney disease, stage 3. PLAN: At the present time is to continue IV antibiotics, wound care, ADA diet, and sliding scale with insulin. The patient was denied by insurance for LTAC. cont abx
--- NOTE | 2018-12-22 19:47 | NUR ---
RECEIVED PT IN BED AOX3 .RT FOOT WITH DRESSING DRY AND INTACT RT FA 20G S/L .CALL LIGHT WITH IN REACH .CONTINUE TO MONITOR
--- NOTE | 2018-12-22 21:30 | NUR ---
[facility] CAME 19.[address] BARNARD .WAITING FOR THE CALL BACK
[2018-12-22] MEDS: VANCOMYCIN 1GM/NS 250 ML 250 ML IV SCH (23:00)
[2018-12-23] VITALS (8 sets, daily range): BP systolic 105–151; BP diastolic 55–75
--- NOTE | 2018-12-23 03:18 | NUR ---
GIVEN VANCO MYCIN
--- NOTE | 2018-12-23 06:01 | NUR ---
PT RESTED DURING THE NIGHT .DENIES PAIN .CALL LIGHT WITH IN REACH .CONTINUE TO MONITOR
--- NOTE | 2018-12-23 07:00 | NUR ---
RECEIVED AM REPORT FROM NURSE AND ROUNDS DONE. PT IS SLEEPING, NO S/S OF DISTRESS. CALL LIGHT WITHIN REACH, SIDE RAILS UP
--- NOTE | 2018-12-23 07:25 | NUR ---
BEDSIDE REPORT GIVEN TO THE ONCOMING NURSE
[2018-12-23] MEDS: INSULIN REGULAR, HUMAN 100 UNIT/1 ML 3ML VIAL SQ SCH ×4 (07:30→20:51)
[2018-12-23] MEDS: GLIPIZIDE 5 MG TAB PO SCH ×2 (09:39→17:43)
[2018-12-23] MEDS: CLOPIDOGREL BISULFATE 75 MG TAB PO SCH (09:40)
[2018-12-23] MEDS: CARVEDILOL 12.5 MG TAB PO SCH ×2 (09:40→17:43)
[2018-12-23] MEDS: COLLAGENASE 5 GM TUBE TOP SCH (09:40)
[2018-12-23] MEDS: OMEPRAZOLE 20 MG CAP PO SCH (09:40)
[2018-12-23] MEDS: FUROSEMIDE 40 MG TAB PO SCH ×2 (09:40→17:43)
[2018-12-23] MEDS: LISINOPRIL 20 MG TAB PO SCH (09:41)
[2018-12-23] MEDS: HYDROCODONE/APAP 5MG-325MG TAB PO PRN ×3 (09:41→22:10)
--- NOTE | 2018-12-23 10:31 | Progress Note ---
DATE: MD BRENDA Vidal/CHANELL /[id number]
--- NOTE | 2018-12-23 11:45 | Progress Note ---
DATE: 12/23/2018 SUBJECTIVE: Mr. Dickson is a 73-year-old man with history of coronary artery disease, diabetes, hypertension, left below-knee amputation, hyperlipidemia, presence of defibrillation. Sent to the emergency room with a stage III right heel ulcer. He has been on wound care and IV antibiotics. He was found to have occlusion of the artery in the right lower extremity. At present on medical management, he may need further treatment on that. We are awaiting to see his insurance will approve LTAC for this patient. PHYSICAL EXAMINATION: GENERAL: He is awake and alert. VITAL SIGNS: Temperature is 97.8 and blood pressure 151/72. HEART: Regular rate. LUNGS: Clear to auscultation. ABDOMEN: Soft. LABORATORY DATA: On the blood work white count 9.78, hemoglobin is 8, and hematocrit 24.5. Glucose 198. ASSESSMENT AND PLAN: 1. Right heel cellulitis with stage III. 2. Severe peripheral vascular disease. 3. Diabetes type 2 with foot ulcer. 4. Coronary artery disease, status post stent. 5. Hypertension. 6. Presence of defibrillator. 7. Left below-knee amputation. 8. Hyperlipidemia. 9. 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 10. Chronic kidney disease, stage 3. PLAN: The plan at the present time is to continue ADA diet, sliding scale with insulin, continue wound care, IV antibiotics. LTAC was denied by insurance, we are trying to a peer to peer, so we can transfer him to [facility] to continue IV antibiotics, wound care, and put him on a hyperbaric oxygen. All this was discussed in detail with the patient. All questions were answered to satisfaction. MD BRENDA Vidal/CHANELL /[id number]
--- NOTE | 2018-12-23 14:10 | NUR ---
Spoke to Dr. Frank regarding LTAC denial and plan of care. Patient is on 1 antibiotic, wound care, having physical therapy, Addendum: 12/23/18 at [address] Frank states she would like the plan for antibiotics before coming up with a definitive plan. Spoke to Dr. Leigh, he states he would like the patient to continue rocephin 1G q24 and vancomycin q24 for 2-[address] Frank to notify her of plan for abx
[2018-12-23] MEDS: CEFTRIAXONE SOD 1 GM/NS 50 ML 50 ML IV SCH (14:43)
--- NOTE | 2018-12-23 14:57 | Progress Note ---
DATE: 12/23/2018 SUBJECTIVE: The patient at bedside, doing better. Decreased pain to the right lower extremity. Denies any history of fever, chills, nausea, or vomiting. OBJECTIVE: VITAL SIGNS: Afebrile, pulse rate 71, respirations 20, blood pressure 151/72, and O2 saturation 96%. EXTREMITIES: Pedal pulses diminished to both the DP and PT. Skin temperature warm and cool to touch. Ulceration inspected more than 3 to 4 cm in diameter. Some granulation tissue noted. No bone exposed. Very close to bone to the posterior aspect. Negative foul smell with some fibrosis noted. LABORATORY DATA: Labs noted. ASSESSMENT: Grade 3 ulcer healing with possible osteo and peripheral arterial disease. PLAN: Dressing was changed. Santyl followed by diluted wet-to-dry Betadine was applied. The patient instructed the importance of keeping foot offload with toe under calf at all times. We will continue to follow. Continue IV antibiotics and local wound care. Seems responding to conservative care at this time. CARMENZA Vu/CHANELL /[id number]
--- NOTE | 2018-12-23 19:04 | Progress Note ---
DATE: SUBJECTIVE: Mr. Dickson is doing better. No new complaints. REVIEW OF SYSTEMS: HEENT: Negative. PULMONARY: Negative. CARDIAC: Negative. EXTREMITIES: The foot seems to be getting better. PHYSICAL EXAMINATION: GENERAL: He is currently alert and oriented. Does not seem to be in acute distress. VITAL SIGNS: Stable, afebrile. HEENT: He is not icteric. NECK: Supple. CHEST: Clear. HEART: S1 and S2. No S3, S4, or murmur. ABDOMEN: Soft. Bowel sounds present. No tenderness. EXTREMITIES: No edema. SKIN: There is no rash. IMPRESSION: 1. Right heel cellulitis stage 3, treat as osteo. 2. Diabetes mellitus with neuropathy. 3. Status post left pejhe-ygj-ynjb amputation. 4. Chronic kidney disease. Continue with the current choice of antibiotic, which he is on. He is on Rocephin and vancomycin for 3 more weeks and reassess then and see how he is going to do clinically. Weekly CBC, weekly chem panel. MD TESFAYE Flood/MODL /[id number]
--- NOTE | 2018-12-23 20:05 | NUR ---
RECEIVED PT IN BED AOX3 .RT FOOT WITH DRESSING .RT FA 20G S/L RESPIRATIONS ARE EVEN AND UNLABORED .CALL LIGHT WITH IN REACH .CONTINUE TO MONITOR
[2018-12-23] MEDS: VANCOMYCIN 1GM/NS 250 ML 250 ML IV SCH (20:53)
[2018-12-24] VITALS (7 sets, daily range): BP systolic 121–164; BP diastolic 64–80
--- NOTE | 2018-12-24 05:07 | NUR ---
PT RESTING .DENIES PAIN .RT FOOT DRESSING DRY AND INTACT .CALL LIGHT WITH IN REACH .CONTINUE TO MONITOR
--- NOTE | 2018-12-24 07:00 | NUR ---
received am report and rounds done. pt is alert resting in bed, no s/s of distress. call light within reach and instructed pt to call nurse for help.
--- NOTE | 2018-12-24 07:04 | NUR ---
BED SIDE REPORT GIVEN TO THE ONCOMING NURSE
[2018-12-24] MEDS: INSULIN REGULAR, HUMAN 100 UNIT/1 ML 3ML VIAL SQ SCH ×4 (07:30→21:00)
[2018-12-24] MEDS: CLOPIDOGREL BISULFATE 75 MG TAB PO SCH (08:35)
[2018-12-24] MEDS: OMEPRAZOLE 20 MG CAP PO SCH (08:35)
[2018-12-24] MEDS: LISINOPRIL 20 MG TAB PO SCH (08:35)
[2018-12-24] MEDS: GLIPIZIDE 5 MG TAB PO SCH ×2 (08:35→17:41)
[2018-12-24] MEDS: FUROSEMIDE 40 MG TAB PO SCH ×2 (08:35→17:41)
[2018-12-24] MEDS: CARVEDILOL 12.5 MG TAB PO SCH ×2 (08:35→17:41)
[2018-12-24] MEDS: HYDROCODONE/APAP 5MG-325MG TAB PO PRN ×2 (08:38→17:46)
[2018-12-24] MEDS: COLLAGENASE 5 GM TUBE TOP SCH (09:30)
--- NOTE | 2018-12-24 09:43 | NUR ---
WOUND CARE DONE
--- NOTE | 2018-12-24 11:09 | Progress Note ---
DATE: 12/24/2018 SUBJECTIVE: Mr. Dickson is a 73-year-old man with history of coronary artery disease, diabetes, hypertension, left below-knee amputation, hyperlipidemia, presence of defibrillator, came to the emergency room with stage III right heel ulcer. He was started on wound care, IV antibiotics. No MRI can be done because the patient has had defibrillator, but we are treating him as an osteomyelitis. We are awaiting insurance to approve LTAC. PHYSICAL EXAMINATION: GENERAL: He is awake and alert. VITAL SIGNS: Temperature is 98.7, blood pressure 145/80. HEART: Regular rate. LUNGS: Clear to auscultation. ABDOMEN: Soft. EXTREMITIES: Right lower extremity is under dressing. LABORATORY DATA: On the blood work, white count 8, hemoglobin is 8, hematocrit 24.5, and glucose 115. Today, blood cultures were negative. ASSESSMENT: 1. Right heel cellulitis with stage III ulcer, treated osteomyelitis. 2. Severe peripheral vascular disease. 3. Diabetes type 2 with foot ulcer. 4. Coronary artery disease, status post stent. 5. Hypertension. 6. Left below-knee amputation. 7. Presence of defibrillator. 8. Hyperlipidemia. 9. 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 10. Chronic kidney disease, stage III. PLAN: The plan at present time is to continue ADA diet, sliding scale, wound care, IV antibiotics. We are going to try to do a peer to peer to see if we can get the patient to be transferred to LTAC for wound care, IV antibiotics, and hyperbaric oxygen. All this was discussed in extensively with the patient. All questions were answered to satisfaction. MD BRENDA Vidal/CHANELL /[id number]
--- NOTE | 2018-12-24 13:30 | NUR ---
Spoke to Melina [phone] merchandise planner with [facility] about dc plan. she states if ltac is denied again she is going to send a list of senior living facilities and is going to carve out whether they can accommodate hyperbaric O2.
[2018-12-24] MEDS: CEFTRIAXONE SOD 1 GM/NS 50 ML 50 ML IV SCH (13:52)
--- NOTE | 2018-12-24 14:36 | Progress Note ---
DATE: 12/24/2018 SUBJECTIVE: The patient is seen at bedside, doing better. Decreased pain to the right lower extremity. Denying any history of fever, chills, nausea, or vomiting. OBJECTIVE: VITAL SIGNS: Afebrile, pulse rate 67, respirations 20, blood pressure 150/77, and O2 saturation 98%. EXTREMITIES: Ulceration to the right lower extremity shows some granulation tissue. Negative foul smell, very close to bone. More than 3.5 to 4 cm in diameter. Pedal pulses diminished. ASSESSMENT: Peripheral arterial disease with a grade 3 ulcer, possible osteo right foot cellulitis. PLAN: We will continue local wound care. Continue IV antibiotics. Continue offloading. The patient awaiting to be transferred for [facility] for possible HBO to try treat with possible salvage foot and leg. We will continue conservative treatment for now. CARMENZA Vu/CHANELL /[id number]
--- NOTE | 2018-12-24 20:00 | NUR ---
Received change of shift report from AM nurse. Walking rounds completed.
[2018-12-24] MEDS: TRAZODONE HCL 50 MG TAB PO PRN (20:30)
[2018-12-24] MEDS: VANCOMYCIN 1GM/NS 250 ML 250 ML IV SCH (20:32)
--- NOTE | 2018-12-24 23:00 | NUR ---
IV leaking. Restart IV 20G to right Hand. Patient tolerated well.
[2018-12-25] VITALS (7 sets, daily range): BP systolic 114–155; BP diastolic 60–77
[2018-12-25] MEDS: INSULIN REGULAR, HUMAN 100 UNIT/1 ML 3ML VIAL SQ SCH ×4 (07:30→20:52)
[2018-12-25] MEDS: GLIPIZIDE 5 MG TAB PO SCH ×2 (07:50→16:30)
[2018-12-25] MEDS: HYDROCODONE/APAP 5MG-325MG TAB PO PRN ×2 (07:50→21:16)
--- NOTE | 2018-12-25 07:50 | NUR ---
PATIENT IN BED RESTING WITH NO DISTRESS. C/O PAIN TO RIGHT HEEL AND MEDICATED ORDERED. BED IN LOWER POSITION, CALL LIGHT AT REACH.
[2018-12-25] MEDS: OMEPRAZOLE 20 MG CAP PO SCH (09:19)
[2018-12-25] MEDS: COLLAGENASE 5 GM TUBE TOP SCH (09:19)
[2018-12-25] MEDS: CARVEDILOL 12.5 MG TAB PO SCH ×2 (09:19→17:13)
[2018-12-25] MEDS: FUROSEMIDE 40 MG TAB PO SCH ×2 (09:19→17:13)
[2018-12-25] MEDS: CLOPIDOGREL BISULFATE 75 MG TAB PO SCH (09:19)
[2018-12-25] MEDS: LISINOPRIL 20 MG TAB PO SCH (09:19)
--- NOTE | 2018-12-25 10:58 | Progress Note ---
DATE: 12/25/2018 SUBJECTIVE: Mr. Dickson is a 73-year-old man with history of coronary artery disease, diabetes, hypertension, left below-knee amputation, hyperlipidemia, presence of defibrillator, and came to the emergency room with stage III right heel ulcer. He is on wound care and IV antibiotic. No MRI due to the patient has a pacemaker, but he has been treated as osteomyelitis. We are waiting a peer to peer to transfer the patient to LTAC, to continue IV antibiotics for 3 weeks, continue wound care and for HBO. PHYSICAL EXAMINATION: GENERAL: Today, he is awake and alert. VITAL SIGNS: Temperature is 98.5, blood pressure is 155/77. HEART: Regular rate. LUNGS: Clear to auscultation. ABDOMEN: Soft. LABORATORY DATA: On the blood work, potassium 3.7, creatinine is 2.01, and glucose 179. White count 9.78, hemoglobin 8, and hematocrit 24.5. ASSESSMENT: 1. Right heel cellulitis with stage III ulcer, treated as osteomyelitis. 2. Severe peripheral vascular disease. 3. Diabetes type 2 with foot ulcer. 4. 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 5. Chronic kidney disease, stage III. 6. Coronary artery disease, status post stent. 7. Hypertension. 8. Left below-knee amputation. 9. Presence of defibrillator. 10. Hyperlipidemia. PLAN: At the present time is to continue ADA diet, sliding scale, IV antibiotics, wound care. Awaiting transfer to LTAC to continue treatment and for HBO if possible. All this was discussed in extension with the patient. All questions were answered to satisfaction. MD BRENDA Vidal/CHANELL /[id number]
--- NOTE | 2018-12-25 11:24 | NUR ---
Spoke to Dr. Frank. She states she would still like to do the appeal for [facility]. States patient needs daily monitoring and is at high risk for losing his only other leg. Informed her insurance would very possibly deny LTAC. She states possibly SNF the patient since he lives alone and would have to drive to hbo. But she states he doesnt really want to go to SNF. RNCM spoke to patient, explained the situation about ltac possibly not being an option, stated he needs iv abx and has to go to hbo. Patient states he doesnt drive and is not sure he could give himself antibiotics. Is a little open to SNF. RNCM to follow after denial and give choices for SNF.
--- NOTE | 2018-12-25 11:35 | NUR ---
PATIENT IN BED WITH HEAD OF BED ELEVATED WATCHING TV. DRESSING CHANGED TO RIGHT ORDERED. BED IN LOWER POSITION, CALL LIGHT AT REACH.
--- NOTE | 2018-12-25 13:00 | NUR ---
Called Dr. Frank after speaking to Patricia with [facility]. Awaiting a call back.
--- NOTE | 2018-12-25 13:03 | Progress Note ---
DATE: 12/25/2018 SUBJECTIVE: The patient is seen at bedside, doing better. Decreased pain to the right lower extremity. Denies any history of fever, chills, nausea, or vomiting. OBJECTIVE: VITAL SIGNS: Afebrile, pulse rate 72, respirations 17, blood pressure 155/77, and O2 saturation 98%. EXTREMITIES: Ulceration to the right foot is showing some granulation tissue and fibrosis very close to bone with minimal to no foul smell. Some drainage present. Skin temperature between warm and cool to touch. Pedal pulses are very diminished to both the DP and PT. ASSESSMENT: Peripheral arterial disease with a grade 3 ulcer, healing slowly. PLAN: We will continue IV antibiotics. Continue local wound care with Santyl followed by diluted wet-to-dry Betadine. The patient going to be transfer for possible HBO therapy and continue IV antibiotics and local wound care at [facility] to try to salvage the foot and leg. CARMENZA Vu/CHANELL /[id number]
[2018-12-25] MEDS: CEFTRIAXONE SOD 1 GM/NS 50 ML 50 ML IV SCH (14:02)
--- NOTE | 2018-12-25 14:24 | NUR ---
Zoe RODRIGEZ CM has called Dr. Frank regarding orders for dc planning. Dr. Frank calls back to this nurse outreach case manager and after discussion about likely denial and length of appeal, orders SNF eval and picc line.
--- NOTE | 2018-12-25 14:37 | NUR ---
Spoke to Scarlet at [facility] about hyperbaric o2 therapy. she states she will speak to the don and get an answer. Addendum: 12/25/18 at 1443 by Birgit Perdue CM ANSWER IS NO FROM [facility]
--- NOTE | 2018-12-25 14:58 | NUR ---
Spoke to JJ with [facility] who states they can accept the patient and do hbo there. RN CM to discuss with patient
[2018-12-25 15:54] LABS: ANION GAP 12.9 mmol/L (8-16); CALCIUM 8.8 mg/dL (8.4-10.2); CREATININE, SERUM 2.12 mg/dL (0.72-1.25); POTASSIUM 3.9 mmol/L (3.5-5.1)
--- NOTE | 2018-12-25 16:28 | NUR ---
PATIENT AMBULATING IN HALLWAY, NO COMPLAIN VOICED. WILL CONTINUE TO MONITOR. Addendum: 12/25/18 at 1633 by Addison Rodriguez RN WRONG PATIENT
--- NOTE | 2018-12-25 16:34 | NUR ---
WALKING ROUND MADE, URINAL EMPTIED. PATIENT IN BED WITH CALL LIGHT AT REACH.
--- NOTE | 2018-12-25 19:29 | NUR ---
Received bedside report from day nurse. Patient sitting up in bed, no s/s of distress or c/o pain at this time. All safety measures in place. Will continue to monitor.
[2018-12-25] MEDS: VANCOMYCIN 1GM/NS 250 ML 250 ML IV SCH (20:52)
--- NOTE | 2018-12-25 20:55 | NUR ---
Per insulin sliding scale, patient scheduled to receive 9 units of Humulin R with fingerstick glucose level of 288. Patient refused 9 units, saying that it will drop his blood sugar far too low and that he will only agree to take 5 units. Administered 5 units. Will continue to monitor patient.
[2018-12-25] MEDS: TRAZODONE HCL 50 MG TAB PO PRN (21:16)
[2018-12-25] MEDS ORDERED: SODIUM CHLORIDE 0.9% 250ML 250 ML ONE (22:30)
[2018-12-26] VITALS (7 sets, daily range): BP systolic 112–138; BP diastolic 53–76
[2018-12-26 06:21] LABS: INR 1.07; PROTHROMBIN TIME 14.4 seconds (11.9-14.5)
--- NOTE | 2018-12-26 07:08 | NUR ---
Gave bedside report to day nurse. All safety measures in place.
--- NOTE | 2018-12-26 07:25 | NUR ---
PATIENT IN BED TALKING ON THE PHONE, NO S/S OF DISTRESS NOTED. DRESSING INTACT TO RIGHT HEEL WITH HEEL PROTECTOR IN PLACE. REDNESS TO SACRUM. BED IN LOWER POSITION, CALL LIGHT AT REACH.
[2018-12-26] MEDS: INSULIN REGULAR, HUMAN 100 UNIT/1 ML 3ML VIAL SQ SCH ×4 (07:30→22:00)
[2018-12-26] MEDS: GLIPIZIDE 5 MG TAB PO SCH ×2 (08:00→16:30)
[2018-12-26] MEDS: LISINOPRIL 20 MG TAB PO SCH (09:00)
[2018-12-26] MEDS: CLOPIDOGREL BISULFATE 75 MG TAB PO SCH (09:00)
[2018-12-26] MEDS: FUROSEMIDE 40 MG TAB PO SCH ×2 (09:00→17:29)
[2018-12-26] MEDS: COLLAGENASE 5 GM TUBE TOP SCH (09:00)
[2018-12-26] MEDS: OMEPRAZOLE 20 MG CAP PO SCH (09:00)
[2018-12-26] MEDS: CARVEDILOL 12.5 MG TAB PO SCH ×2 (09:00→17:29)
[2018-12-26 09:08] LABS: BASOPHILS % 0.4 % (0.0-1.0); EOSINOPHILS # (AUTO) 0.3 (0.0-0.4); EOSINOPHILS % 2.2 % (0.0-6.0); HEMATOCRIT 25.1 % (38.2-49.6); HEMOGLOBIN 8.3 g/dL (14.0-18.0); LYMPHOCYTES % 17.9 % (18.0-39.1); MEAN CORPUSCULAR HEMOGLOBIN 30.9 pg (28-32); MEAN CORPUSCULAR HGB CONC 33.1 g/dL (31-35); MEAN CORPUSCULAR VOLUME 93.3 fL (81-99); MONOCYTES # (AUTO) 0.8 (0.2-0.8); MONOCYTES % 7.1 % (4.4-11.3); NEUTROPHILS # (AUTO) 8.1 (2.1-6.9); PLATELET COUNT 391 x10e3/uL (140-360); RED BLOOD COUNT 2.69 x10e6/uL (4.3-5.7); RED CELL DISTRIBUTION WIDTH 12.9 % (11.7-14.4)
[2018-12-26] MEDS ORDERED: LACTULOSE SYRUP 20 GM/30 ML UDC PO PRN (10:00)
[2018-12-26] MEDS ORDERED: LIDOCAINE HCL 1% LOCAL INJ 20 ML VIAL ONE (11:06)
[2018-12-26] MEDS ORDERED: SODIUM CHLORIDE 0.9% 250ML 250 ML ONE (11:06)
--- NOTE | 2018-12-26 11:25 | NUR ---
PATIENT OFF UNIT TO RADIOLOGY.
--- NOTE | 2018-12-26 12:45 | NUR ---
PATIENT BACK TO UNIT FROM RADIOLOGY. CENTRAL LINE IN PLACE TO RIGHT UPPER CHEST WITH DRESSING DRY AND INTACT. PATIENT BACK IN BED WITH CALL LIGHT AT REACH.
--- NOTE | 2018-12-26 13:43 | NUR ---
PENITENTIARY ACUTE CARE DISCHARGE INFORMATION PATIENT HAS BEEN ACCEPTED TO: NAME: [facility] ADDRESS:[id number] [facility] [place] ACCEPTING PIT TANNER:ROBE SINGLETON ACCEPTING MD: Juan MUNIZ ROOM:[id number] NURSE CALL REPORT TO: [phone] CALLED AND SPOKE WITH DAUGHTER CRESENCIO AT [phone] ABOUT APPROVAL AND TRANSPORT SHE HAS GIVEN PERMISSION FOR TRANSPORT AND WILL CALL HER FATHER.
[2018-12-26] MEDS: CEFTRIAXONE SOD 1 GM/NS 50 ML 50 ML IV SCH (14:15)
--- NOTE | 2018-12-26 14:24 | Progress Note ---
DATE: 12/26/2018 SUBJECTIVE: The patient is seen at bedside, doing better decreased pain to the right lower extremity. Denies any history of fever, chills, nausea, or vomiting. OBJECTIVE: VITAL SIGNS: Afebrile, pulse rate 71, respiratory rate 16, blood pressure 138/76, O2 saturation 100%. EXTREMITIES: Ulceration to the right heel is showing some minimal foul smell. Granulation tissue noted very close to bone with some necrosis noted surrounding the ulceration borders. ASSESSMENT: Grade 3 ulcer possible osteo with peripheral arterial disease. PLAN: We will continue local wound care, dressing was changed. Santyl collagenase followed by area of diluted wet-to-dry Betadine dressing was applied. Continue offloading with toe under calf. The patient will be getting a Port-A-Cath for IV antibiotics awaiting to be hopefully transferred to [place] for HBO therapy. Continue IV antibiotics and local wound care. CARMENZA Vu/CHANELL /[id number]
--- NOTE | 2018-12-26 16:26 | NUR ---
DRESSING CHANGED TO RIGHT HEEL ORDERED. PATIENT IN BED WITH CALL LIGHT AT REACH.
[2018-12-26] MEDS: HYDROCODONE/APAP 5MG-325MG TAB PO PRN (17:25)
--- NOTE | 2018-12-26 17:35 | Diagnostic Imaging Report ---
PROCEDURE: Tunneled central venous catheter placement Procedural Personnel Attending physician(s): Papo Raya MD Fellow physician(s): None Resident physician(s): None Advanced practice provider(s): None Pre-procedure diagnosis: Cellulitis/osteomyelitis Post-procedure diagnosis: Same Indication: Need for long-term antibiotics. Additional clinical history: None Complications: No immediate complications. IMPRESSION: Insertion of right-sided dual-lumen tunneled proline catheter, with tip in the expected location of the cavoatrial junction. Plan: The catheter may be used immediately. PROCEDURE SUMMARY: - Venous access with ultrasound guidance - Tunneled central venous catheter insertion with fluoroscopic guidance - Additional procedure(s): None PROCEDURE DETAILS: Pre-procedure Consent: Informed consent for the procedure including risks, benefits and alternatives was obtained and time-out was performed prior to the procedure. Preparation (MIPS): The site was prepared and draped using all elements of maximal sterile barrier technique including sterile gloves, sterile gown, cap, mask, large sterile sheet, sterile ultrasound probe cover, hand hygiene and cutaneous antisepsis with 2% chlorhexidine. Medical reason for site preparation exception (MIPS): Not applicable Anesthesia/sedation Level of anesthesia/sedation: No sedation Access Local anesthesia was administered. The vessel was sonographically evaluated and determined to be patent. Real time ultrasound was used to visualize needle entry into the vessel and a permanent image was stored. Vein accessed: Internal jugular vein Access technique: Micropuncture set with 21 gauge needle Catheter placement An incision was made near the venous access site and the catheter was tunneled subcutaneously to the venous access site and trimmed to appropriate length. The catheter was advanced via a peel-away sheath into the vein under fluoroscopic guidance. Catheter tip location was fluoroscopically verified and a permanent image was stored. Catheter placed: Medcomp Proline Catheter size (Cook Islander): 6 Catheter flush: Saline Closure A sterile dressing was applied. Access site closure technique: Tissue adhesive Catheter securement technique: Non-absorbable suture Contrast Contrast agent: None Radiation Dose Fluoroscopy time (minutes): 0.2 Reference air kerma (mGy): 1.7 Additional Details Additional description of procedure: None Equipment details: None Specimens removed: None Estimated blood loss (mL): Less than 10 Standardized report: [email or web address] Attestation Signer name: Papo Raya MD I attest that I was present for the entire procedure. I reviewed the stored images and agree with the report as written. Signed by: Papo Raya MD on 12/26/2018 5:32 PM
--- NOTE | 2018-12-26 19:01 | NUR ---
Received change of shift report from AM nurse. Walking rounds completed.
--- NOTE | 2018-12-26 20:25 | Consultation ---
DATE OF CONSULTATION: Nephrology Consultation REASON FOR CONSULTATION: CKD management, needing also a questionable PICC line for IV antibiotic therapy. HISTORY OF PRESENT ILLNESS: This is a 73-year-old male, who came in with right heel cellulitis, stage III ulcer with underlying osteomyelitis. Also, has diabetes, CKD, hyperlipidemia, coronary artery disease status post stents in the past, once here had significant amount of IV antibiotic therapy, local debridement by Podiatry, and will need HBO treatments, and will be sent to [facility] for further LTAC management and care. Nephrology consult for his underlying CKD management. The patient has known to have CKD for significant number of years. Of note, he has had diabetes for 20+ years. Also, has a left BKA from that. Also, has underlying neuropathy and also complains of underlying retinopathy. The patient reports that his diabetes was uncontrolled for a significant number of years. The patient is seen and evaluated at bedside on the medical floor. He is currently well with no other complaints. REVIEW OF SYSTEMS: Pertinent positives: Right foot cellulitis. Pertinent negatives: Denies any chest pain, palpitation, nausea, vomiting, diarrhea, dysuria, hematuria, frequency, urgency, lightheadedness, dizziness, abdominal pain, headaches, shortness of breath, cough, congestion, fever, or any other complaints. The rest of the 14-point review of systems have been reviewed with the patient and are negative. ALLERGIES: PANTOPRAZOLE. HOME MEDICATIONS: 1. Coreg 25 mg b.i.d. 2. Plavix 75 mg daily. 3. Furosemide 30 mg b.i.d. 4. [id number] mg p.o. b.i.d. 5. Lisinopril 40 mg daily. 6. Omeprazole 20 mg daily. 7. Insulin. PAST MEDICAL HISTORY: Type 2 diabetes, uncontrolled, hypertension, peripheral neuropathy, retinopathy. PAST SURGICAL HISTORY: He has a left BKA. He also has some debridement in the right foot. FAMILY HISTORY: Hypertension and diabetes. SOCIAL HISTORY: No drugs. No alcohol. Does not smoke. Good social support PHYSICAL EXAMINATION: VITAL SIGNS: Temperature 99, pulse 71, respiratory rate 16, blood pressure 130/76, pulse ox 100% on room air. GENERAL: No acute distress. Alert and oriented x3. Cooperative on examination. HEENT: Head; normocephalic and atraumatic. Eyes; pupils are equal, round, and reactive to light bilaterally. Extraocular movements intact bilaterally. NECK: Supple. Good range of motion throughout. Throat; no evidence of erythema or exudates in the posterior pharynx. Has poor dentition. PULMONARY: Clear to auscultation bilaterally. No wheezing, rales, or rhonchi. No crackles appreciated. CARDIOVASCULAR: Positive S1, S2. No murmurs, rubs, or gallops. ABDOMEN: Soft, nondistended, and nontender to palpation. Bowel sounds present. MUSCULOSKELETAL: Strength is 5/5 throughout. No evidence of any muscle deficits on examination. No weakness appreciated. NEUROLOGIC: Cranial nerve II through XII are grossly intact. No evidence of any neurological deficits on exam. SKIN: Intact. Warm to touch. Good cap refill. PSYCHIATRIC: Normal affect and mood. EXTREMITIES: He has a left BKA. He also has right heel wound infection. LABORATORY FINDINGS: Show white count 11.1, hemoglobin 8.2, hematocrit 25, and platelets of 391. Coagulation, PT 14, INR 1.07, PTT 33. Chemistry, sodium 135, potassium 3.9, [id number], bicarb 25, anion gap of 12, BUN is 34, creatinine is 2.1, glucose is 246, calcium is 8.8. His LFTs were found to be within normal range. Albumin 3.1. MICROBIOLOGY: Blood cultures were negative. IMAGING STUDIES: CT of the foot without contrast shows diffuse soft tissue edema about the foot. This could be due to cellulitis in appropriate clinical setting. No osseous erosions seem to suggest osteomyelitis. IMPRESSION: 1. Acute chronic kidney disease, stage 3-4 secondary to uncontrolled type 2 diabetes, likely has diabetic nephropathy. 2. Right heel cellulitis, stage 3 ulceration with underlying osteomyelitis. 3. Hypertension. 4. Left pwewh-czq-fcwn amputation. PLAN: From a renal standpoint, it seems that his creatinine is at baseline. It seems like that his renal function is likely secondary to underlying diabetic nephropathy and also has diabetic retinopathy. At this time, we would continue same plan of care. Going to get a renal ultrasound. Urine electrolyte studies. I have approved for a tunneled central line from his chest wall to his IJ and which is currently in place. He will be going to [facility] for further antibiotic therapy and management. While there, I will go ahead and order other imaging studies and lab work at [facility]. Otherwise, we will continue with same plan of care and monitor very closely. Thank you so much for this consultation. We will continue to follow up with. MD FRANNY Moralez/CHANELL /[id number]
[2018-12-26] MEDS: VANCOMYCIN 1GM/NS 250 ML 250 ML IV SCH (21:00)
--- NOTE | 2018-12-26 23:03 | NUR ---
Patient trough level is 22.2. Called and s/w Dr Leigh. Received orders. Orders completed.
[2018-12-27] MEDS: TRAZODONE HCL 50 MG TAB PO PRN
[2018-12-27] MEDS: HYDROCODONE/APAP 5MG-325MG TAB PO PRN ×2 (00:26→08:20)
[2018-12-27 01:04] VITALS: BP 117/77
--- NOTE | 2018-12-27 05:00 | NUR ---
Patient resting quitly at this time.
[2018-12-27 06:01] VITALS: BP 135/68
--- NOTE | 2018-12-27 07:25 | NUR ---
PATIENT IN BED RESTING WITH EYES CLOSED, NO DISTRESS NOTED. DRESSING INTACT TO RIGHT UPPER CHEST CENTRAL LINE AND RIGHT HEEL. BED IN LOWER POSITION, CALL LIGHT AT REACH.
[2018-12-27 07:30] VITALS: BP 160/76
[2018-12-27] MEDS: GLIPIZIDE 5 MG TAB PO SCH (07:30)
[2018-12-27] MEDS: INSULIN REGULAR, HUMAN 100 UNIT/1 ML 3ML VIAL SQ SCH ×2 (07:30→11:30)
[2018-12-27 08:17] VITALS: BP 160/76
[2018-12-27] MEDS: FUROSEMIDE 40 MG TAB PO SCH (08:23)
[2018-12-27] MEDS: CLOPIDOGREL BISULFATE 75 MG TAB PO SCH (08:23)
[2018-12-27] MEDS: CARVEDILOL 12.5 MG TAB PO SCH (08:23)
[2018-12-27] MEDS: OMEPRAZOLE 20 MG CAP PO SCH (08:23)
[2018-12-27] MEDS: LISINOPRIL 20 MG TAB PO SCH (08:25)
[2018-12-27] MEDS: COLLAGENASE 5 GM TUBE TOP SCH (10:00)
[2018-12-27 10:53] VITALS: BP 129/64
--- NOTE | 2018-12-27 12:15 | NUR ---
PATIENT TRANSFERRED TO LTAC. REPORT CALLED AND GIVEN TO RECEIVING NURSE. IV TO RIGHT HAND REMOVED WITH TIP INTACT. RIGHT UPPER CHEST CENTRAL LINE INTACT AND PATENT. ALL PERSONAL ITEMS TAKEN WITH PATIENT. DAUGHTER NOTIFIED OF TRANSFER. LEFT UNIT ON STRETCHER PER AMBULANCE IN STABLE CONDITION.
[2018-12-27] MEDS ORDERED: VANCOMYCIN 1GM/NS 250 ML 250 ML IV SCH (21:00)
--- NOTE | 2018-12-29 02:52 | Discharge Summary ---
HOSPITAL COURSE: Mr. Dickson is a 73-year-old man with history of coronary artery disease, diabetes, hypertension, left below-knee amputation, hyperlipidemia, and presence of defibrillator, came to the emergency room with a stage III right heel ulcer. He was started on wound care and IV antibiotics. We were not able to do an MRI because the patient has had defibrillator, but he has been treated as osteomyelitis. We are awaiting approval for LTAC, if not he is going to go to SNF . PHYSICAL EXAMINATION: GENERAL: He is awake and alert. VITAL SIGNS: Temperature is 98.7, blood pressure 121/56. HEART: Regular rate. LUNGS: Clear to auscultation. ABDOMEN: Soft. LABORATORY DATA: On the blood work, white count is 9.78, hemoglobin is 8.0, hematocrit 24.5. Potassium 3.9, creatinine 2.12. Glucose is 246. Blood cultures negative. ASSESSMENT: 1. Right heel cellulitis with stage III ulcer, treated as osteomyelitis. 2. Severe peripheral vascular disease. 3. Diabetes type 2 with foot ulcer. 4. 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 5. Chronic kidney disease, stage 3. 6. Coronary artery disease, status post stent. 7. Hypertension. 8. Left below-knee amputation. 9. Presence of defibrillator. 10. Hyperlipidemia. PLAN: At present time is to continue ADA diet, sliding scale. We are going to put a PICC line, but will need a flagsetter to clear him for the PICC line. If he gets accepted to LTAC or SNF. He is going to be transferred there to continue a wound care and IV antibiotics. All this was discussed with the patient. All questions were answered to satisfaction. MD BRENDA Vidal/CHANELL /[id number]
== END 2018-12-27 12:22 | DRG 623 ==
LOC: ER 14:47 → ERHOLD 17:30 → MED/SURG3 19:45
PROVIDERS: ADMIT Internal Medicine; ATTEND Internal Medicine
PROC: 0KBV0ZZ Excision of Right Foot Muscle, Open Approach (ICD-10-PCS; 2018-12-12)
PROC: B41F1ZZ Fluoroscopy of Right Lower Extremity Arteries using Low Osmolar Contrast (ICD-10-PCS; principal; 2018-12-16)
PROC: 0KBV0ZZ Excision of Right Foot Muscle, Open Approach (ICD-10-PCS; 2018-12-20)
PROC: 0JH63XZ Insertion of Tunneled Vascular Access Device into Chest Subcutaneous Tissue and Fascia, Percutaneous Approach (ICD-10-PCS; 2018-12-26)
PROC: 02HV33Z Insertion of Infusion Device into Superior Vena Cava, Percutaneous Approach (ICD-10-PCS; 2018-12-26)
DX: E11.69 Type 2 diabetes mellitus with other specified complication (principal); L03.115 Cellulitis of right lower limb; L97.414 Non-pressure chronic ulcer of right heel and midfoot with necrosis of bone; E11.52 Type 2 diabetes mellitus with diabetic peripheral angiopathy with gangrene; I96 Gangrene, not elsewhere classified; M86.8X7 Other osteomyelitis, ankle and foot; E11.621 Type 2 diabetes mellitus with foot ulcer; I25.10 Atherosclerotic heart disease of native coronary artery without angina pectoris; I12.9 Hypertensive chronic kidney disease with stage 1 through stage 4 chronic kidney disease, or unspecified chronic kidney disease; E11.22 Type 2 diabetes mellitus with diabetic chronic kidney disease; N18.3 Chronic kidney disease, stage 3 (moderate); I99.9 Unspecified disorder of circulatory system; M19.90 Unspecified osteoarthritis, unspecified site; E11.40 Type 2 diabetes mellitus with diabetic neuropathy, unspecified; Z79.4 Long term (current) use of insulin; Z95.0 Presence of cardiac pacemaker; Z95.5 Presence of coronary angioplasty implant and graft; Z89.512 Acquired absence of left leg below knee; E78.5 Hyperlipidemia, unspecified; E11.21 Type 2 diabetes mellitus with diabetic nephropathy; E11.319 Type 2 diabetes mellitus with unspecified diabetic retinopathy without macular edema; L97.514 Non-pressure chronic ulcer of other part of right foot with necrosis of bone; I70.235 Atherosclerosis of native arteries of right leg with ulceration of other part of foot; D63.1 Anemia in chronic kidney disease
CPT/HCPCS: 36247; 36415; 36558; 74470; 75710; 76937; 77001; 80048; 80053; 80202; 82948; 83605; 85007; 85025; 85027; 85610; 85730; 87040; 90732; 93970; 96372; 99153; 99284; C1769; C1887; J0583; J0696; J1644; J1817; J2001; J2250; J2543; J3010; J3370; J7030; J7050; Q9967

== ENCOUNTER 2019-06-22 22:00 | Inpatient (IN) | payer MEDICARE, OTHER ==
[~2019-06-22] VITALS: Ht 185.4 cm; Wt 80.3 kg
[~2019-06-22 22:00] MED LIST changes: -NOVOLOG MI100 UNITS/ IJ; +NOVOLOG MI100 UNITS/ SQ; +TRAVATAN Z5 ML OP
[2019-06-22] MEDS ORDERED: VANCOMYCIN 1GM/NS 250 ML 250 ML IV ONE (22:30)
[2019-06-22 22:39] LABS: BASOPHILS % 0.3 % (0.0-1.0); EOSINOPHILS # (AUTO) 0.3 (0.0-0.4); EOSINOPHILS % 2.6 % (0.0-6.0); HEMATOCRIT 28.7 % (38.2-49.6); HEMOGLOBIN 9.2 g/dL (14.0-18.0); LYMPHOCYTES # (AUTO) 2.1 (1.0-3.2); LYMPHOCYTES % 21.8 % (18.0-39.1); MEAN CORPUSCULAR HGB CONC 32.1 g/dL (31-35); MEAN CORPUSCULAR VOLUME 87.2 fL (81-99); MONOCYTES # (AUTO) 0.7 (0.2-0.8); MONOCYTES % 6.7 % (4.4-11.3); NEUTROPHILS # (AUTO) 6.6 (2.1-6.9); PLATELET COUNT 357 x10e3/uL (140-360); RED BLOOD COUNT 3.29 x10e6/uL (4.3-5.7); RED CELL DISTRIBUTION WIDTH 14.7 % (11.7-14.4)
[2019-06-22] MEDS: PIPERACILLIN/TAZO 2.25 GM 50 ML IV SCH (22:47)
[2019-06-22 22:50] LABS: INR 0.99; PROTHROMBIN TIME 13.7 seconds (11.9-14.5)
[2019-06-22 22:59] LABS: ALBUMIN 2.8 g/dL (3.5-5.0); ALBUMIN/GLOBULIN RATIO 0.6 (0.8-2.0); ANION GAP 14.1 mmol/L (8-16); CALCIUM 9.1 mg/dL (8.4-10.2); CREATININE, SERUM 2.19 mg/dL (0.72-1.25); POTASSIUM 4.1 mmol/L (3.5-5.1)
[2019-06-22] MEDS ORDERED: SODIUM CHLORIDE 0.9% 1000ML 1,000 ML IV ONE (23:00)
[2019-06-22] MEDS ORDERED: SODIUM CHLORIDE 0.9% 1000ML 1,000 ML ONE (23:04)
[2019-06-23] VITALS (8 sets, daily range): BP systolic 131–179; BP diastolic 69–84
[2019-06-23] MEDS ORDERED: SODIUM CHLORIDE FLUSH 10 ML SYR INJ PRN (00:15)
[2019-06-23] MEDS ORDERED: DEXTROSE 50% SYRINGE 50 ML IV PRN (00:15)
[2019-06-23] MEDS ORDERED: IBUPROFEN 400 MG TAB PO ONE (00:45)
[2019-06-23] MEDS ORDERED: DOXYCYCLINE HY100 MG PO (00:45)
--- NOTE | 2019-06-23 07:00 | NUR ---
RECEIVED PATIENT AWAKE RESTING IN BED NO S/S OF DISTRESS. BED LOW, WHEELS LOCKED, SIDE RAILS X2. CALL LIGHT IN REACH WILL CONTINUE TO MONITOR PATIENT.
[2019-06-23] MEDS: INSULIN REGULAR, HUMAN 100 UNIT/1 ML 3ML VIAL SQ SCH ×4 (07:30→21:00)
[2019-06-23] MEDS: LISINOPRIL 20 MG TAB PO SCH (09:35)
[2019-06-23] MEDS: CLOPIDOGREL BISULFATE 75 MG TAB PO SCH (09:35)
[2019-06-23] MEDS: FUROSEMIDE 40 MG TAB PO SCH (09:35)
[2019-06-23] MEDS: GLIPIZIDE 5 MG TAB ER PO SCH ×2 (09:35→16:23)
[2019-06-23] MEDS: CARVEDILOL 12.5 MG TAB PO SCH ×2 (09:35→16:23)
--- NOTE | 2019-06-23 10:10 | NUR ---
Pt sleeping soundly and no family present. Control [employer] left a card describing availability of car dispatcher and instructions on how to contact a car dispatcher. ANDERY ROSALES [employer] Spiritual Care Department O: [phone]
[2019-06-23] MEDS ORDERED: SODIUM CHLORIDE 0.9% 250ML 250 ML ONE (11:10)
[2019-06-23] MEDS: OMEPRAZOLE 20 MG CAP PO SCH (11:32)
[2019-06-23] MEDS: PIPERACILLIN/TAZO 2.25 GM 50 ML IV SCH ×2 (11:40→23:06)
[2019-06-23] MEDS: MORPHINE SULFATE INJ 4 MG/ML INJ 1ML IV PRN (16:52)
--- NOTE | 2019-06-23 16:59 | NUR ---
Nutrition Intervention Note RD Recommendation(s) for Physician: - Continue current diet - Recommend Shayan 1 packet BID to promote wound healing - Recommend MVI with minerals, Vitamin C, and Zinc Sulfate to promote wound healing Plan of Care: RD following, monitoring for tolerance and adequacy. ONS and vitamin/mineral recommendations. Nutrition reason for involvement: Nutrition Risk Trigger RD Assessment 06/22: 74 YOM admitted for osteomyelitis of the R foot with hx of chronic R foot wound. Pt seen today per MST screen. Pt reports good appetite and po intake currently and INFECTIOUS DISEASE PHYSICIAN, noted 90% intake per flow sheets. Pt denies any wt loss, noted insignificant wt loss per prior admit in November 2018 of 190#. Pt denies any GI distress. Pt declined education, very distracted by TV at time of visit. No questions or concerns at time of visit. Chart reviewed. Will continue to monitor. Principal Problems/Diagnoses: R foot osteomyelitis, sepsis PMH: CAD, DM2, HTN, L BKA, HLD GI: WDL, LBM 06/22 Skin: R foot osteomyelitis, chronic wound Labs: 06/21: Na 138, K 4.1, BUN 23, Cr 2.19, Gluc 266, POC Gluc 122-208 Meds: abx, glipizide, lasix, insulin, zofran Ht: 73 in Wt: 177.02 lb BMI: 23.4 kg/m2 IBW: 184 lb Malnutrition Evaluation (06/23/19) The patient does not meet criteria for a specified degree of malnutrition at this time. Will re-evaluate at follow-up as appropriate. Energy intake: none, good po intake Weight loss: none, pt denies any wt loss Fat loss: none, chest well developed Muscle loss: none, Supporting Evidence: Fluid accumulation: none observed Functional Status: not assessed Nutrition Prescription (Diet Order): 1800 ADA Estimated Nutritional Needs: [id number] calories/day (25-30 kcal/kg CBW) 84-125 g protein/day (1-1.5 g pro/kg CBW) Diet Adequacy: Meeting calorie needs, Meeting protein needs Diet Tolerance: tolerating po Diet Education Needs Assessment: Diet education indicated, pt declined Nutrition Care Level: Low Nutrition Diagnosis: Increased nutrient needs (protein, vitamin/minerals) related to wound healing as evidenced by chronic R foot wound with osteomyelitis. Goal: Patient will meet 75-100% of estimated needs by follow up Progress: N/A Interventions: -CHO modified diet, Commercial beverage, Multivitamin/mineral supplement therapy Monitoring/Evaluation: -Total energy intake, Total protein intake, Modified diet, Liquid supplement Signed: Maye Hart RD, [place], [facility]
--- NOTE | 2019-06-23 17:25 | NUR ---
Dr. Hayward rounding on patient. Plan to have debridement of right heel tomorrow. New orders implemented.
--- NOTE | 2019-06-23 18:38 | Consultation ---
DATE OF CONSULTATION: 06/23/2019 REASON FOR CONSULTATION: Osteomyelitis with multiple grade 4 ulcers and 2 ulcers to the right foot with peripheral arterial disease and diabetic neuropathy. HISTORY OF PRESENT ILLNESS: This is a pleasant 74-year-old male, who is very well known to me, who was sent from the office to the emergency room to be admitted for IV antibiotics secondary to a grade 4 ulcer with bone exposed and also has a grade 3 ulcer posterior aspect right heel with Achilles tendon exposed and a grade 2 ulcer right great toe ulcers, he has had for several months. The ulcer to the posterior aspect of the right heel course on the plantar fascia developed approximately 2 weeks ago, has gotten worse. The patient currently deny any history of fever, chills, nausea, or vomiting. PAST MEDICAL HISTORY: Remarkable for hypertension, hypercholesterolemia, insulin-dependent diabetes, peripheral arterial disease, and diabetic neuropathy. PAST SURGICAL HISTORY: Remarkable for left ttzet-jie-ekzu amputation 7 years ago and left hip replacement surgery. ALLERGIES: THE PATIENT DENIES. CURRENT MEDICATIONS: Note, listed in the chart including IV Zosyn. SOCIAL HISTORY: He is a pack-a-day smoker for 25 plus years. Socially, he drinks. Denies any recreational drug use. Lives alone. Has 2 daughters. FAMILY HISTORY: Noncontributory. REVIEW OF SYSTEMS: CARDIAC: Denies any palpitations or arrhythmias. RESPIRATORY: Denies any shortness of breath or productive cough. GASTROINTESTINAL: Denies any diarrhea or constipation. GENITOURINARY: Denies hematuria or problems voiding. PHYSICAL EXAMINATION: VITAL SIGNS: Afebrile, pulse rate 81, respirations 18, blood pressure 131/72, and O2 saturation 99%. Podiatric physical examination reveals the following: VASCULATURE: Pedal pulses of both the DP and PT are diminished. Skin temperature warm to touch. No cyanosis noted. NEUROLOGICAL: Reveals loss of protective sensation when utilizing [employer] 5.07 monofilament wire. Muscle mass is somewhat wasted. Muscle strength to be 4/5 to all muscle groups of the right lower extremity. DERMATOLOGICAL: Reveals a grade 4 ulceration measuring more than 5 to 6 cm in diameter, posterior aspect of the right heel with bone exposed. Has a grade 3 ulceration down the plantar fascia, measuring 2.5 to 3 cm in diameter plantar fascia exposed and foul smell with grade 2 ulcer right great toe, measuring 1.5 to 2 cm in diameter with necrosis noted down the subcutaneous tissue. LABORATORY DATA: Noted, has a white blood cell count of 9.7, hemoglobin 9.2, hematocrit 28.7 with a platelet count of 357. Has a blood glucose of dropping from 208 this morning to 97. INR of 0.99. ASSESSMENT: Peripheral arterial disease, osteomyelitis, grade 3, grade 4, grade 2 ulceration, right foot. PLAN: X-rays will be taken to both the foot and ankle. We will continue IV antibiotics. We will start diluted wet-to-dry Betadine b.i.d. to the foot. The patient will have a bedside debridement tomorrow of all 3 ulcerations. We will treat conservatively for now to try to salvage foot and leg. The patient understands if not responsive, partial calcanectomy may need to be done in the very near future. We will try to treat conservatively without any bone surgical intervention at this point. CARMENZA Vu/CHANELL /[id number]
--- NOTE | 2019-06-23 18:56 | Diagnostic Imaging Report ---
FOOT RIGHT COMPLETE - Multiple views HISTORY: pain COMPARISON: None available. FINDINGS: Bones: No acute displaced fracture. Osseous alignment is within normal limits. Joints: There is moderate joint space narrowing and bone production compatible with osteoarthritis. Soft tissues: There is a small heel spur. Vascular calcifications are seen. IMPRESSION: No acute radiographic abnormality. Signed by: Ramsey Franz MD on 06/23/2019 6:52 PM
--- NOTE | 2019-06-23 19:58 | Consultation ---
DATE OF CONSULTATION: REASON FOR CONSULTATION: Heel ulcer. HISTORY OF PRESENT ILLNESS: The patient, who is known to me from before, 74-year-old white male, comes into the emergency room because his ulcer on the left side is getting progressively worse. The patient, who was seen by Dr. Hayward, was seen by Dr. Frank. He has an ulcer on his foot, which is getting progressively worse in spite taking oral antibiotic. He does have history of diabetes mellitus, neuropathy, chronic kidney disease, congestive heart failure, hypertension, CVA, hip replacement, multiple debridement on his heel, left hip replacement, defibrillator and stent placement. The patient comes in with worsening wound on his foot with pain and redness and the dressing. There was some drainage on it. The patient was in the hospital looked over a year ago, where he had the same problem. He was given antibiotic and discharged home. The patient, who has history of congestive heart failure and right heel infection. He was transferred to [facility] at that time. LABORATORY DATA: Reviewed. His cultures still pending. His white count 9.7 and hemoglobin 9.2. Sodium still pending. PHYSICAL EXAMINATION: GENERAL: He is currently alert and oriented. Does not seem to be in acute distress. VITAL SIGNS: Stable, currently afebrile. HEENT: He is not icteric. NECK: Supple. CHEST: Clear. HEART: S1 and S2. No S3, S4, or murmur. ABDOMEN: Soft. Bowel sounds present. EXTREMITIES: No edema. Right heel ulcer is about 1 cm. IMPRESSION: 1. Foot ulcer on the right, osteomyelitis. Agree with MRI. Obtain debridement with bone tissue for cultures. 2. Diabetes with neuropathy. 3. Vascular workup if not done recently. We will follow. Diabetic control. MD TESFAYE Flood/CHANELL /[id number]
[2019-06-24] VITALS (8 sets, daily range): BP systolic 135–164; BP diastolic 66–87
[2019-06-24 05:07] LABS: BASOPHILS % 0.4 % (0.0-1.0); EOSINOPHILS # (AUTO) 0.4 (0.0-0.4); EOSINOPHILS % 3.4 % (0.0-6.0); HEMATOCRIT 24.5 % (38.2-49.6); HEMOGLOBIN 7.9 g/dL (14.0-18.0); LYMPHOCYTES # (AUTO) 2.7 (1.0-3.2); LYMPHOCYTES % 25.8 % (18.0-39.1); MEAN CORPUSCULAR HEMOGLOBIN 27.9 pg (28-32); MEAN CORPUSCULAR HGB CONC 32.2 g/dL (31-35); MEAN CORPUSCULAR VOLUME 86.6 fL (81-99); MONOCYTES # (AUTO) 0.8 (0.2-0.8); MONOCYTES % 7.6 % (4.4-11.3); NEUTROPHILS # (AUTO) 6.4 (2.1-6.9); NEUTROPHILS % 62.3 % (38.7-80.0); PLATELET COUNT 275 x10e3/uL (140-360); RED BLOOD COUNT 2.83 x10e6/uL (4.3-5.7); RED CELL DISTRIBUTION WIDTH 15.2 % (11.7-14.4)
[2019-06-24 05:34] LABS: ALBUMIN 2.4 g/dL (3.5-5.0); ALBUMIN/GLOBULIN RATIO 0.6 (0.8-2.0); ANION GAP 8.8 mmol/L (8-16); CREATININE, SERUM 1.89 mg/dL (0.72-1.25); POTASSIUM 3.8 mmol/L (3.5-5.1)
[2019-06-24] MEDS: INSULIN REGULAR, HUMAN 100 UNIT/1 ML 3ML VIAL SQ SCH ×4 (07:30→21:00)
[2019-06-24] MEDS: GLIPIZIDE 5 MG TAB ER PO SCH ×2 (08:36→16:48)
[2019-06-24] MEDS: OMEPRAZOLE 20 MG CAP PO SCH (08:37)
[2019-06-24] MEDS: LISINOPRIL 20 MG TAB PO SCH (08:37)
[2019-06-24] MEDS: FUROSEMIDE 40 MG TAB PO SCH (08:37)
[2019-06-24] MEDS: CARVEDILOL 12.5 MG TAB PO SCH ×2 (08:37→16:48)
[2019-06-24] MEDS: CLOPIDOGREL BISULFATE 75 MG TAB PO SCH (08:37)
[2019-06-24] MEDS ORDERED: COLLAGENASE 5 GM TUBE TOP ONE (09:00)
--- NOTE | 2019-06-24 09:00 | NUR ---
MELISSAYL OINTMENT AND WET TO DRY DRESSINGS APPLIED TO THE 3 WOUNDS ON PATIENT'S RIGHT FOOT POST DR. HUTCHINSON'S BEDSIDE DEBRIDEMENT. CULTURES SENT TO LAB. PATIENT TOLERATED WELL & IS RESTING IN BED AT THIS TIME VOICING NO CONCERNS. PAOLO.
--- NOTE | 2019-06-24 09:35 | Progress Note ---
DATE: 06/24/2019 SUBJECTIVE: Mr. Dickson is a 74-year-old man with history of coronary artery disease, status post stent, hypertension, hyperlipidemia, diabetes type 2, peripheral vascular disease, left below-knee amputation, who came to the emergency room, sent by Dr. Hayward because of ulcer in his right heel with infection and probably osteomyelitis. He was started on wound care and IV antibiotics. PHYSICAL EXAMINATION: GENERAL: Today, he is awake and alert. VITAL SIGNS: Temperature is 98.6, blood pressure is 153/74. HEART: Regular rate. LUNGS: Clear to auscultation. ABDOMEN: Soft. EXTREMITIES: On the right lower extremity, he has a right big toe ulcer and he has a big ulceration in the heel and on the back of the heel, he has another ulcer that is infected. LABORATORY DATA: Foot x-ray shows no acute radiographic abnormalities. White count is 10.29, hemoglobin 7.9, hematocrit is 24.5. Potassium 3.8, creatinine 1.89, glucose 187. Wound cultures and blood cultures are pending. ASSESSMENT: 1. Right big toe ulcer. 2. Right heel infected ulcer with osteomyelitis. 3. Diabetes type 2 with hyperglycemia. 4. Coronary artery disease, status post stent. 5. Hypertension. 6. Hyperlipidemia. 7. Peripheral vascular disease. PLAN: At present time is to continue wound care. Debridement as needed. IV antibiotics. We are awaiting for wound culture results. Continue ADA diet, sliding scale with insulin, and continue other home medications. All this was discussed with the patient. All questions were answered to satisfaction. I spent more than 30 minutes examining patient, reviewing overnight event, lab results, and discussing plan of care with him. MD BRENDA Vidal/MODL /[id number]
--- NOTE | 2019-06-24 09:41 | Progress Note ---
DATE: SUBJECTIVE: The patient is seen and evaluated. The patient is seen with the anatomic pathology assistant in the room. REVIEW OF SYSTEMS: No nausea, vomiting, fever, chills, chest pain, shortness of breath, headache, dysuria, polyuria. Pain is controlled. PHYSICAL EXAMINATION: VITAL SIGNS: Temperature is 98.6, pulse is 69, respiration 19, blood pressure 153/74. MEDICATIONS: Medication list reviewed. As far as Infectious Disease point of view, the patient is currently on Zosyn. LABORATORY STUDIES: Sodium 141, potassium 3.8 creatinine 1.89 with a GFR of 35. White blood cells 10.29, hemoglobin 7.9, platelet 275. MICROBIOLOGY: Blood culture 06/21 negative. Wound culture 06/21 gram-positive and gram-negative, pending identification and sensitivity. IMAGING: X-ray of the foot on 06/22 showed no acute radiographic abnormality of the right foot. ASSESSMENT AND PLAN: 1. Infected/ulcer of the right foot. 2. Concern osteomyelitis. 3. Diabetes mellitus. 4. Diabetic neuropathy. 5. The patient benefits from Vascular workup if not had any workup done recently. 6. The patient just received debridement at the bedside by Dr. Hayward. 7. Wound is gram-positive and gram-negative, currently on Zosyn, with renal insufficiency. GFR of 35. We will add Zyvox and follow up with the culture. 8. We will do an MRI without contrast. 9. Discussed with the nurse. 10. Discussed with Dr. Leigh. 11. Please refer to chart for more information. Dictated by Ramsey Gonsales PA-C (Al) Mary Leigh MD /MODL /[id number]
[2019-06-24] MEDS: MORPHINE SULFATE INJ 4 MG/ML INJ 1ML IV PRN ×2 (09:50→23:12)
--- NOTE | 2019-06-24 10:16 | Progress Note ---
DATE: 06/24/2019 SUBJECTIVE: The patient at bedside. Denies any history of fever, chills, nausea, or vomiting, having some discomfort to the right lower extremity. OBJECTIVE: VITAL SIGNS: Afebrile. Pulse rate 69, respirations 19, blood pressure 153/74, and O2 saturation 96%. LABORATORY DATA: Labs show white blood cell count of 10.2, hemoglobin 7.9 with a platelet count of 275. INR of 0.99 with a blood glucose of 187. Multiple ulcerations to the right lower extremity with foul smell noted. Achilles tendon exposed the posterior aspect with an ulcer measuring more than 2 cm to 2.5 cm in diameter. Has an ulcer in the plantar aspect right heel measuring more than 5 cm to 6 cm in diameter with bone exposed and has a grade 2 ulcer in the distal aspect right great toe measuring 2 cm in diameter with necrosis noted down to subcutaneous tissue. Pedal pulses diminished, but skin temperature is warm to touch. ASSESSMENT: Osteomyelitis, grade 3, grade 4, grade 2 ulceration, right foot with diabetic neuropathy and peripheral arterial disease. PLAN: Under no anesthesia secondary to his neuropathy sharp or excisional debridement of the ulcers were performed down to tendon, muscle bone, and subcutaneous tissue respectively via the use of a sterile a 10-blade, sharp excisional debridement was performed until good viable bleeding tissue was achieved. Deep cultures were taken for aerobic and anaerobic growth. We will continue to treat conservatively with IV antibiotics, local wound care including Santyl followed by diluted wet-to-dry and offloading. The patient will need a couple of serial debridements to try to salvage foot and leg. No guarantees can be given. CARMENZA Vu/CHANELL /[id number]
[2019-06-24] MEDS: LINEZOLID 600 MG/D5W 300ML 300 ML IV SCH ×2 (10:54→22:19)
[2019-06-24] MEDS: PIPERACILLIN/TAZO 2.25 GM 50 ML IV SCH ×2 (11:47→23:11)
--- NOTE | 2019-06-24 14:12 | NUR ---
patient left floor to go to CT scan.
--- NOTE | 2019-06-24 15:00 | Diagnostic Imaging Report ---
EXAM: CT right foot WITHOUT contrast INDICATION: Osteomyelitis of right foot. Foot and ankle ulceration. Heel ulcer. COMPARISON: None. TECHNIQUE: Right foot was scanned utilizing a multidetector helical scanner without administration of IV contrast. Coronal and sagittal reformations were obtained. Routine protocol was performed. IV CONTRAST: None ORAL CONTRAST: Water COMPLICATIONS: None RADIATION DOSE: Total DLP: 131 mGy*cm Estimated effective dose: (DLP x 0.015 x size factor) mSv CTDIvol has been reviewed. It is below the limits set by the Radiation Protocol Committee (RPC). Dose modulation, iterative reconstruction, and/or weight based adjustment of the mA/kV was utilized to reduce the radiation dose to as low as reasonably achievable. FINDINGS: The detection and characterization of small masses and abscesses is limited without the use of IV contrast. Scattered vascular calcification. No acute fracture, dislocation or avascular necrosis. Scattered degenerative change. Small inferior calcaneal bone spur. No radiopaque foreign body. Abnormal skin thickening with ulceration/soft tissue defect at the posterior aspect of the ankle at the level of the mid talus with what appears to be packing material. There are small adjacent air foci. The underlying bone in this region is unremarkable. The adjacent Achilles tendon is irregular and likely at least partially torn. Additionally, there is abnormal skin thickening with ulceration/soft tissue defect at the posterior aspect of the lateral calcaneus. There is underlying cortical erosion in the posterior inferior lateral calcaneus worrisome for osteomyelitis best seen on sagittal image 28 through 31. Diffuse soft tissue edema. No definite well formed drainable fluid collection is seen Diffuse muscle atrophy. Impression: Abnormal skin thickening with ulceration/soft tissue defect at the posterior aspect of the lateral calcaneus. There is underlying cortical erosion in the posterior inferior lateral calcaneus worrisome for osteomyelitis. Abnormal skin thickening with ulceration/soft tissue defect at the posterior aspect of the ankle at the level of the mid talus with what appears to be packing material. There are small adjacent air foci. The underlying bone in this region is unremarkable. The adjacent Achilles tendon is irregular and likely at least partially torn. Signed by: Dr. Gabriele Mcnally M.D. on 06/24/2019 2:57 PM
--- NOTE | 2019-06-24 21:30 | NUR ---
ASSESSMENT DONE.NO RESP.DISTRESS.NO PAIN VOICED.ASSISTED TO USE REST ROOM.VOIDED.BACK TO BED SAFELY.PHONE AND CALL LIGHT WITHIN REACH.INSTRUCTED TO CALL FOR ASSISTANCE NEEDED.
[2019-06-24] MEDS: ONDANSETRON HCL INJ 2MG/ML 2ML 2 MG/ML VIAL IV PRN (23:11)
[2019-06-25] VITALS (8 sets, daily range): BP systolic 112–158; BP diastolic 59–75
--- NOTE | 2019-06-25 07:06 | NUR ---
BEDSIDE SHIFT REPORT GIVEN TO ONCOMING RN.STABLE CONDITION.
[2019-06-25] MEDS: INSULIN REGULAR, HUMAN 100 UNIT/1 ML 3ML VIAL SQ SCH ×4 (07:30→21:20)
[2019-06-25] MEDS: OMEPRAZOLE 20 MG CAP PO SCH (08:22)
[2019-06-25] MEDS: LISINOPRIL 20 MG TAB PO SCH (08:22)
[2019-06-25] MEDS: CLOPIDOGREL BISULFATE 75 MG TAB PO SCH (08:22)
[2019-06-25] MEDS: FUROSEMIDE 40 MG TAB PO SCH (08:22)
[2019-06-25] MEDS: GLIPIZIDE 5 MG TAB ER PO SCH ×2 (08:22→17:38)
[2019-06-25] MEDS: CARVEDILOL 12.5 MG TAB PO SCH ×2 (08:22→17:38)
--- NOTE | 2019-06-25 09:59 | Progress Note ---
DATE: 06/25/2019 SUBJECTIVE: The patient at bedside, doing somewhat better. Denies any history of fever, chills, nausea, or vomiting. OBJECTIVE: VITAL SIGNS: Afebrile, pulse rate 78, respirations 17, blood pressure 158/75, O2 saturation 95%. LABORATORY DATA: Labs show white blood cell count of 10.2. Ulceration posterior aspect of the right heel getting worse with some foul smell present. Ulceration plantar aspect right heel getting better and the ulceration distal aspect right great toe also getting better. CT findings are consistent with osteomyelitis. There is a plantar fascia exposed with a partial tear noted to the infection. ASSESSMENT: Grade 3 ulcer right heel posterior aspect, peripheral arterial disease and grade 4 ulcer, right foot, osteomyelitis with a grade 2 ulcer right. PLAN: We will continue local wound care, bedside debridement will be once again performed tomorrow to try to salvage foot and leg. No guarantees can be given. We will continue Santyl followed by diluted wet-to-dry b.i.d. Continue IV antibiotics and offloading. CARMENZA Vu/CHANELL /[id number]
--- NOTE | 2019-06-25 10:19 | Progress Note ---
DATE: 06/25/2019 SUBJECTIVE: Mr. Dickson is a 74-year-old man with history of coronary artery disease, status post stent, hypertension, hyperlipidemia, diabetes type 2, peripheral vascular disease, left below-knee amputation, history of right heel ulcer for several months PA, sent to the emergency room by Dr. Hayward because he developed a new wound in the right upper heel behind his ankle with probable infection and osteomyelitis. He was started on IV antibiotics and wound care. OBJECTIVE: GENERAL: Today, he is awake and alert. He is feeling a little better. VITAL SIGNS: Temperature 98.1, blood pressure 158/75. HEART: Regular rate. LUNGS: Poor inspiratory effort. ABDOMEN: Soft. LABORATORY DATA: On the blood work, white count 10.29, hemoglobin 7.9, hematocrit 24.5. A blood sugar today was 73. Wound culture is growing Streptococcus and gram-negative bacilli. Blood culture so far negative. A CT of the extremity concerning for osteomyelitis. ASSESSMENT AND PLAN: 1. Right big toe ulcer. 2. Right heel infected ulcer with osteomyelitis. 3. Diabetes type 2 with hyperglycemia. 4. Coronary artery disease, status post stent. 5. Hypertension. 6. Hyperlipidemia. 7. Peripheral vascular disease. PLAN: At present time is to continue wound care and IV antibiotics. Had a debridement done yesterday. He is probably going to have another debridement tomorrow. Continue ADA diet. Continue all home medications. The overall prognosis of the patient is guarded due to all his medical conditions and the risk of loosing his other leg. All this was discussed in detail with the patient. All questions were answered to satisfaction. MD BRENDA Vidal/FREDERICL /[id number]
--- NOTE | 2019-06-25 10:29 | Progress Note ---
DATE: REVIEW OF SYSTEMS: No nausea, vomiting, fever, chills, chest pain, shortness of breath, headache, dysuria, or polyuria. Pain is controlled. PHYSICAL EXAMINATION: VITAL SIGNS: Temperature 98.1, pulse is 78, respirations 17, blood pressure 158/75. GENERAL: Alert and oriented, no acute distress. CV: S1, S2. CHEST: Equal expansion. Clear to auscultation. No acute distress. ABDOMEN: Soft and nontender. No distention. HEENT: Moist. No pallor. No JVD. EXTREMITIES: Right foot multiple wounds including ankle area, the toes, lateral aspect and almost above the calcaneus posteriorly on area with Achilles tendon. MEDICATIONS: Medication list reviewed. As far as Infectious Disease point of view, the patient is on Zyvox and Zosyn. LABORATORY STUDIES: No new CBC or BMP. However, white count was 10.29 with a platelet of 275, and creatinine level of 1.89 on 06/23. Estimated GFR of 35 on 06/23. MICROBIOLOGY: Wound culture showed gram-negative bacilli and enterococcus species with identification and sensitivity pending. Also, showed some providencia rettgeri. Blood culture was negative on 06/21. RADIOLOGY STUDIES: Unable to do MRI secondary to the patient has a permanent pacemaker. However, CT showed abnormal skin thickening with ulceration/soft tissue defect at the posterior aspect of the lateral calcaneus. There is underlying cortical erosion in the posterior, inferior, lateral calcaneus worrisome for osteomyelitis. Also, showed abnormal skin thickening with ulcerations/soft tissue defect at the posterior aspect of the ankle at the level of the mid callus with what appears to be packing material. There are small adjacent air foci. The underlying bone in this region is unremarkable. The adjacent Achilles tendon is irregular and likely at least partially tore. ASSESSMENT AND PLAN: 1. Possible osteomyelitis by CT. 2. Multiple wounds of right foot. 3. Diabetes. 4. Diabetic neuropathy. 5. Cultures as above. We will follow up with the final results. 6. Renal insufficiency with GFR of 35. 7. Discussed with Dr. Leigh. 8. Discussed with staff. 9. Continue with Zyvox and Zosyn. We will follow up with the final wound culture. Diet adjusted to ADA. Attending notes reviewed. Further management of this patient is based on daily findings of laboratory and physical examination. The patient will benefit from Vascular evaluation. Discussed with Dr. Leigh. Please refer to chart for more information. Dictated by Ramsey Adan) MARGARITA Gonsales MD JALEN Flood/CHANELL /[id number]
[2019-06-25] MEDS: LINEZOLID 600 MG/D5W 300ML 300 ML IV SCH ×2 (10:58→21:27)
[2019-06-25] MEDS: MORPHINE SULFATE INJ 4 MG/ML INJ 1ML IV PRN ×2 (10:59→23:22)
[2019-06-25] MEDS: COLLAGENASE 5 GM TUBE TOP SCH ×2 (12:01→21:05)
--- NOTE | 2019-06-25 12:02 | NUR ---
santyl ointment applied to right ankle and foot wounds. wounds then covered with betadine wet to dry dressings and wrapped in kerlex. patient does well with dressing changes. pt resting in bed at this time. kathy.
--- NOTE | 2019-06-25 12:03 | NUR ---
supplies for Dr. Hayward at bedside.
[2019-06-25] MEDS: PIPERACILLIN/TAZO 2.25 GM 50 ML IV SCH ×2 (12:30→23:14)
--- NOTE | 2019-06-25 19:10 | NUR ---
RECEIVED THE PATIENT IN REPORT..STABLE CONDITION.LYEING IN THE BED.
[2019-06-25] MEDS: ONDANSETRON HCL INJ 2MG/ML 2ML 2 MG/ML VIAL IV PRN (23:22)
--- NOTE | 2019-06-25 23:23 | NUR ---
DRESSING DONE.PT TOLERATED WELL.
[2019-06-26] VITALS (8 sets, daily range): BP systolic 118–150; BP diastolic 61–86
--- NOTE | 2019-06-26 07:00 | NUR ---
RECEIVED BEDSIDE SHIFT REPORT FROM JOHN RODRIGEZ. PT DENIES NEEDS AT THIS TIME.
[2019-06-26] MEDS: INSULIN REGULAR, HUMAN 100 UNIT/1 ML 3ML VIAL SQ SCH ×4 (07:30→20:42)
[2019-06-26] MEDS: GLIPIZIDE 5 MG TAB ER PO SCH ×2 (08:38→17:18)
[2019-06-26] MEDS: LISINOPRIL 20 MG TAB PO SCH (08:41)
[2019-06-26] MEDS: FUROSEMIDE 40 MG TAB PO SCH (08:41)
[2019-06-26] MEDS: OMEPRAZOLE 20 MG CAP PO SCH (08:41)
[2019-06-26] MEDS: MORPHINE SULFATE INJ 4 MG/ML INJ 1ML IV PRN ×2 (08:41→20:05)
[2019-06-26] MEDS: CARVEDILOL 12.5 MG TAB PO SCH ×2 (08:41→17:18)
[2019-06-26] MEDS: CLOPIDOGREL BISULFATE 75 MG TAB PO SCH (08:41)
[2019-06-26] MEDS: COLLAGENASE 5 GM TUBE TOP SCH ×2 (08:41→20:06)
--- NOTE | 2019-06-26 08:41 | NUR ---
DR HUTCHINSON AT BEDSIDE. DEBRIDEMENT DONE AND DRESSING CHANGED PER ORDERS.
--- NOTE | 2019-06-26 09:18 | Progress Note ---
DATE: 06/26/2019 SUBJECTIVE: The patient at bedside, accompanied by nurse. Denying any history of fever, chills, nausea, or vomiting, with some swelling to the right lower extremity. OBJECTIVE: VITAL SIGNS: Afebrile, pulse rate 60, respirations 20, blood pressure 139/74, O2 saturation 100%. EXTREMITIES: Ulceration to the posterior aspect of the right heel still shows some foul smell, but decreasing, Achilles tendon exposed and partially torn secondary to the infection. Periwound cellulitis is decreasing, some drainage present. He has a grade 4 ulcer measuring more than 5 to 6 cm in diameter on the plantar aspect right heel with a grade 2 ulcer of 1-1/2 to 2 cm in diameter on the distal aspect of the right great toe. Pedal pulses are palpable, but diminished. Skin temperature warm to touch. ASSESSMENT: Diabetic neuropathy, osteomyelitis, grade 3 ulcer on the posterior aspect of right foot, more than 2-1/2 to 3 cm in diameter, grade 4 ulcer on the right heel with a grade 2 ulcer on the right great toe. PLAN: Due to his diabetic neuropathy, sharp excisional debridement was performed under no anesthesia, sharp excisional debridement of all ulcerations were done down to muscle tendon and subcutaneous tissue respectively to the right posterior ulceration on the plantar aspect of the right heel and distal aspect of the right great toe. Sharp excisional debridement was performed utilizing a sterile 10 blade until good viable bleeding tissue was achieved. Sterile dressing was applied. We will continue IV antibiotics, local wound care, and treat conservatively to try to salvage foot and leg. The patient seems to be responding slowly. CARMENZA Vu/CHANELL /[id number]
[2019-06-26] MEDS: LINEZOLID 600 MG/D5W 300ML 300 ML IV SCH (10:18)
--- NOTE | 2019-06-26 11:13 | Progress Note ---
DATE: 06/26/2019 SUBJECTIVE: Mr. Dickson is a 74-year-old man with history of coronary artery disease, status post stent, peripheral vascular disease, hypertension, hyperlipidemia, diabetes type 2, left below-knee amputation, history of right heel ulcer, came to the emergency room, sent by Dr. Hayward because of a new right upper heel ulcer with infection and probably osteomyelitis. He was started on wound care and IV antibiotics. PHYSICAL EXAMINATION: GENERAL: He is awake and alert. VITAL SIGNS: Temperature is 98.2, blood pressure 139/74. HEART: Regular rate. LUNGS: Clear to auscultation. ABDOMEN: Soft. LOWER EXTREMITIES: The patient has right big toe ulcer. He also has a grade 3 ulcer in the right heel posterior aspect. He has a graft 4 ulcer in the right foot with osteomyelitis. ASSESSMENT: 1. Right big toe ulcer. 2. Right heel ulcer with osteomyelitis. 3. Diabetes type 2 with hyperlipidemia. 4. Coronary artery disease, status post stent. 5. Peripheral vascular disease. 6. Hypertension. 7. Hyperlipidemia. PLAN: At present time is to continue, wound care, IV antibiotics, continue ADA diet, and continue all home medications. We are trying to salvage his right leg and foot since he already has left below amputation. The overall prognosis remains guarded. All this was discussed with the patient. All questions were answered to satisfaction. MD BRENDA Vidal/CHANELL /[id number]
[2019-06-26] MEDS: PIPERACILLIN/TAZO 2.25 GM 50 ML IV SCH ×2 (11:16→23:10)
--- NOTE | 2019-06-26 11:43 | Progress Note ---
DATE: SUBJECTIVE: The patient is seen and evaluated. Available labs and notes reviewed. Discussed with the patient. Discussed with Dr. Leigh. Discussed with the nurse. REVIEW OF SYSTEMS: No nausea, vomiting, fever, chills, chest pain, shortness of breath, headache, dysuria, or polyuria. MEDICATIONS: Medications list reviewed as far as Infectious Disease point of view. The patient is on Zyvox and Zosyn. LABORATORY STUDIES: No new CBC or BMP from today. MICROBIOLOGY: Wound culture shows gram-negative bacilli, Enterococcus, and gram-negative rods on one set. The other set shows procidentia, Enterococcus faecalis, and E. coli, which between Zyvox and Zosyn. The patient is covered for above polymicrobial infection. Blood cultures negative on 06/21. RADIOLOGY STUDIES: No new radiology studies available. PHYSICAL EXAMINATION: VITAL SIGNS: Temperature 98.2, pulse 60, respirations 20, and blood pressure 139/74. GENERAL: Alert, oriented, in no acute distress. CV: S1 and S2. CHEST: Equal expansion. LUNGS: Clear to auscultation. No acute distress. ABDOMEN: Soft and nontender. No distention. HEENT: Moist. No pallor. No JVD. EXTREMITIES: Right foot wound dressed. ASSESSMENT AND PLAN: 1. Osteomyelitis of the right foot by CT. 2. Multiple wounds, right foot. 3. Diabetes mellitus. 4. Renal insufficiency with a GFR of 35. 5. Diabetic neuropathy. 6. Debility. Wound cultures as above with polymicrobial bacterial infection of the wounds. Podiatry note reviewed, status post sharp excisional debridement, was performed under no anesthesia, which was done on all wounds down to bone, down to muscle tendon and subcutaneous tissue. Continue with antibiotics. Continue with wound care. Monitor the patient clinically. Follow up with the labs. Discussed with Dr. Leigh. Please refer to chart for more information. Dictated by Ramsey Gonsales PA-C (Al) Mary Leigh MD /MODL /[id number]
--- NOTE | 2019-06-26 15:38 | NUR ---
WOUND CARE CONSULT FOR 74 YO MALE HX OF OSTEOMYELITIS OF R FOOT, SEPSIS. TIKA 15 ON MODERATE PUP STATUS AND INTERVENTIONS AND ALTERNATING PRESSURE MATTRESS. LABS: WBC- 10.29 HGB- 7.9 GLUCOSE-103 SKIN ASSESSMENT COMPLETE PATIENT PRESENTS WITH: 1)STAGE II PRESSURE ULCER TO SACRUM; MEASURING 0.3 CMX 0.3 CM X 0.1 CM, WITH MINIMAL SEROUSANGUINEOUS DRAINAGE, AND 100% PINK GRANULATION AND RED BLANCHABLE PERIWOUND TO SACROGLUTEAL AREA. 2)FLOOR NURSE REPORTS MULTIPLE ULCERS TO RIGHT FOOT; PT HAD A BEDSIDE DEBRIDEMENT THIS MORNING TO RIGHT FOOT; DRESSINGS IN PLACE BY DR. HUTCHINSON, UNABLE TO ASSESS ULCERS AT THE TIME, DUE TO DRESSING IN PLACE. WOUND CARE ORDERS IN PLACE BY DR. HUTCHINSON TO TREAT FOOT ULCERS; SANTYL FOLLOWED BY WET TO DRY BID. RECOMMENDATIONS: NURSING TO CONTINUE WITH Dr. Hutchinson WOUND CARE ORDERS TO TREAT FOOT ULCERS. NURSING TO CONTINUE TO MONITOR PATIENT AND TO FOLLOW MODERATE PUP INTERVENTIONS NURSING TO CONTINUE TO GET PATIENT OUT OF BED FOR MEALS AND MUCH TOLERATED NURSING TO CLEAN STAGE II PRESSURE ULCERS SACRUM WITH NORMAL SALINE, PAT DRY WITH 4X4 GAUZE AND APPLY VENELEX OINTMENT TO PERIWOUND COVER WITH ALLEVYN FOAM DRESSING DAILY AND NEEDED. NURSING TO CONTINUE TO ASSIST PATIENT NEEDED WITH MEALS AND NUTRITIONAL SUPPLEMENTS TO ENSURE PROPER REQUIREMENTS FOR HEALING NURSING TO CONTINUE TO OFFLOAD FEET AND HEELS NEEDED WITH PILLOW SUSPENSION WHEN IN BED NURSING TO REPOSITION PATIENT SIDE TO SIDE Q2H AND PRN. NURSING TO CONSULT WOUND CARE NEEDED. Addendum: 06/26/19 at 1548 by Evangelina Cohen RN Amended: Links added.
--- NOTE | 2019-06-26 19:10 | NUR ---
RECEIVED THE PATIENT IN REPORT.LYEING IN THE BED.STABLE CONDITION.
[2019-06-26] MEDS: ONDANSETRON HCL INJ 2MG/ML 2ML 2 MG/ML VIAL IV PRN (20:00)
--- NOTE | 2019-06-26 20:22 | NUR ---
Assessment done.no resp.distress.medicated with morphine 4 mg.iv.dressing changed.bed locked and in lowest position.phone and call light within reach.instructed to call for assistance as needed.
[2019-06-26] MEDS: LINEZOLID 600 MG TAB PO SCH (21:21)
[2019-06-27] VITALS (8 sets, daily range): BP systolic 119–142; BP diastolic 61–73
[2019-06-27 06:10] LABS: BASOPHILS % 0.4 % (0.0-1.0); EOSINOPHILS # (AUTO) 0.3 (0.0-0.4); EOSINOPHILS % 3.2 % (0.0-6.0); HEMATOCRIT 26.9 % (38.2-49.6); HEMOGLOBIN 8.6 g/dL (14.0-18.0); LYMPHOCYTES % 25.6 % (18.0-39.1); MEAN CORPUSCULAR HEMOGLOBIN 27.8 pg (28-32); MEAN CORPUSCULAR VOLUME 87.1 fL (81-99); MONOCYTES # (AUTO) 0.6 (0.2-0.8); MONOCYTES % 8.1 % (4.4-11.3); NEUTROPHILS # (AUTO) 4.9 (2.1-6.9); NEUTROPHILS % 62.4 % (38.7-80.0); PLATELET COUNT 267 x10e3/uL (140-360); RED BLOOD COUNT 3.09 x10e6/uL (4.3-5.7); RED CELL DISTRIBUTION WIDTH 15.3 % (11.7-14.4)
--- NOTE | 2019-06-27 07:10 | NUR ---
BED SIDE SHIFT REPORT GIVEN TO ONCOMING RN.STABLE CONDITION.
[2019-06-27] MEDS: INSULIN REGULAR, HUMAN 100 UNIT/1 ML 3ML VIAL SQ SCH ×4 (07:30→21:18)
[2019-06-27] MEDS: CARVEDILOL 12.5 MG TAB PO SCH ×2 (08:19→16:46)
[2019-06-27] MEDS: GLIPIZIDE 5 MG TAB ER PO SCH ×2 (08:19→16:46)
[2019-06-27] MEDS: FUROSEMIDE 40 MG TAB PO SCH (08:19)
[2019-06-27] MEDS: LISINOPRIL 20 MG TAB PO SCH (08:20)
[2019-06-27] MEDS: OMEPRAZOLE 20 MG CAP PO SCH (08:20)
[2019-06-27] MEDS: LINEZOLID 600 MG TAB PO SCH ×2 (08:20→21:23)
[2019-06-27] MEDS: CLOPIDOGREL BISULFATE 75 MG TAB PO SCH (08:20)
[2019-06-27] MEDS: BALSAM PERU/CASTOR OIL 60 GM OINT...G. TP SCH (08:47)
--- NOTE | 2019-06-27 08:47 | NUR ---
Patient stated he did not urinate when he went to the bathroom this AM. Patient stated it isn't a new problem. He stated he would like to wait until lunch to see if he can go. At that point this technical writer and editor will bladder scan and ensure he has emptied his bladder. Will continue to monitor. Patient also had wound care done on his right foot and sacrum by this technical writer and editor.
[2019-06-27] MEDS: PIPERACILLIN/TAZO 2.25 GM 50 ML IV SCH ×2 (11:00→23:47)
[2019-06-27] MEDS: COLLAGENASE 5 GM TUBE TOP SCH ×2 (11:04→21:02)
--- NOTE | 2019-06-27 13:20 | NUR ---
Patient IV was leaking in R AC. Patient had a new IV started with correct protocol in R wrist 22g. No issues or complaints.
[2019-06-27] MEDS: MORPHINE SULFATE INJ 4 MG/ML INJ 1ML IV PRN (15:02)
--- NOTE | 2019-06-27 18:29 | Consultation ---
DATE OF CONSULTATION: 06/27/2019 SUBJECTIVE: The patient at bedside, feeling better. Denies any history of fever, chills, nausea, vomiting. Relates that he has gotten the best he has felt since he has been in the hospital. OBJECTIVE: VITAL SIGNS: Afebrile, pulse rate 55, respirations 19, blood pressure 123/61, O2 saturation 97%. LABORATORY DATA: White blood cell count dropping from 10.2-7.8, hemoglobin is 8.6 with hematocrit of 26.9, platelet count of 267. Ulcerations, getting better, still some tendon exposed with some granulation tissue noted. Decreased periwound cellulitis with decreased foul smell. Ulcer to the posterior aspect is approximately 3 cm in diameter, plantar aspect of the wound is 5-6 cm in diameter and distal aspect of the right great toe less than 2.5 cm in diameter down to tendon and bone and subcutaneous tissue respectively. Pedal pulses are diminished. ASSESSMENT: 1. Peripheral arterial disease. 2. Diabetic neuropathy. 3. Osteomyelitis with a grade 3 grade 4 and grade 2 ulceration. PLAN: We will continue local wound care. Continue offloading. Serial debridement will be performed once again to try to salvage foot and leg. CARMENZA Vu/CHANELL /[id number]
--- NOTE | 2019-06-27 19:40 | NUR ---
RECEIVED THE PATIENT IN BED AOX3 .PT IS BLIND. RT HEEL WITH . DRESSING LEFT BKA. TELE #12 SHOWS SR STAGE 2 SACRUM .CALL LIGHT WITH IN REACH .CONTINUE TO MONITOR
[2019-06-28] VITALS (8 sets, daily range): BP systolic 117–183; BP diastolic 66–82
[2019-06-28] MEDS: MORPHINE SULFATE INJ 4 MG/ML INJ 1ML IV PRN (02:25)
--- NOTE | 2019-06-28 05:52 | NUR ---
PT C/O PAIN AND GIVEN ORDERED PAIN MEDICATION ,NO ACUTE DISTRESS NOTED .CALL LIGHT WITH IN REACH .CONTINUE TO MONITOR
--- NOTE | 2019-06-28 07:07 | NUR ---
BEDSIDE REPORT GIVEN TO THE ON COMING NURSE
[2019-06-28] MEDS: INSULIN REGULAR, HUMAN 100 UNIT/1 ML 3ML VIAL SQ SCH ×4 (07:30→21:39)
[2019-06-28] MEDS: GLIPIZIDE 5 MG TAB ER PO SCH ×2 (07:56→17:00)
[2019-06-28] MEDS: CARVEDILOL 12.5 MG TAB PO SCH ×2 (07:57→17:00)
[2019-06-28] MEDS: OMEPRAZOLE 20 MG CAP PO SCH (07:58)
[2019-06-28] MEDS: LISINOPRIL 20 MG TAB PO SCH (07:58)
[2019-06-28] MEDS: CLOPIDOGREL BISULFATE 75 MG TAB PO SCH (07:58)
[2019-06-28] MEDS: FUROSEMIDE 40 MG TAB PO SCH (07:58)
[2019-06-28] MEDS: LINEZOLID 600 MG TAB PO SCH ×2 (09:55→21:39)
[2019-06-28] MEDS: BALSAM PERU/CASTOR OIL 60 GM OINT...G. TP SCH (09:55)
[2019-06-28] MEDS: COLLAGENASE 5 GM TUBE TOP SCH ×2 (09:55→21:15)
--- NOTE | 2019-06-28 11:06 | Progress Note ---
DATE: 06/28/2019 SUBJECTIVE: The patient is feeling better, relates the IV antibiotics seems to be working. Denies any history of fever, chills, nausea, or vomiting. OBJECTIVE: VITAL SIGNS: Afebrile, pulse rate 67, respirations 20, blood pressure 170/74, and O2 saturation 97%. EXTREMITIES: Ulceration to the right lower extremity, all 3 getting somewhat better. Decreased foul smell. Still some necrosis noted down to plantar fascia posterior aspect, right heel with the ulcer more than 3 cm in diameter, some tendon exposed and protruding the ulceration. Grade 4 ulcer measured more than 6 to 7 cm in diameter plantar aspect right foot with a grade 2 ulcer distal aspect right great toe, approximately 2 cm in diameter, some granulation tissue noted down the subcutaneous tissue. No bone or tendon exposed. Ulcers to the plantar and distal aspect of the right foot show no foul smell. Minimal foul smell to the posterior ulceration. Pedal pulses diminished with skin temperature warm to touch. ASSESSMENT: Diabetic neuropathy, osteomyelitis with a grade 3, grade 4, and grade 2 ulcer, right foot. PLAN: We will continue local wound care. Ulcerations will be debrided once again tomorrow at bedside. Continue IV antibiotics. Continue offloading. We will continue to treat conservatively. CARMENZA Vu/CHANELL /[id number]
[2019-06-28] MEDS ORDERED: ONDANSETRON HCL 4 MG ORAL DISINTEGRATING TAB PO PRN (11:15)
[2019-06-28] MEDS: PIPERACILLIN/TAZO 2.25 GM 50 ML IV SCH ×2 (11:20→23:00)
[2019-06-28] MEDS ORDERED: POTASSIUM CHLORIDE 20 MEQ TAB CR PO NR (18:01)
--- NOTE | 2019-06-28 19:29 | NUR ---
RECEIVED THE PATIENT IN BED AOX3 RT HEEL WITH . DRESSING LEFT BKA. TELE #12 SHOWS SR STAGE 2 SACRUM DENIES PAIN .CALL LIGHT WITH IN REACH .CONTINUE TO MONITOR
[2019-06-29] VITALS (9 sets, daily range): BP systolic 117–155; BP diastolic 60–79
[2019-06-29] MEDS: MORPHINE SULFATE INJ 4 MG/ML INJ 1ML IV PRN ×2 (02:03→18:47)
--- NOTE | 2019-06-29 05:25 | NUR ---
PT C/O PAIN AND GIVEN ORDERED PAIN MEDICATION ,NO ACUTE DISTRESS NOTED . DRESSING CHANGED CALL LIGHT WITH IN REACH .CONTINUE TO MONITOR
--- NOTE | 2019-06-29 07:00 | NUR ---
BEDSIDE SHIFT REPORT RECEIVED FROM THE POWER PRESS TENDER RN. EDUCATED PT ABOUT FALL PRECAUTIONS. PT VERBALIZED UNDERSTANDING. CALL LIGHT WITH IN EASY REACH. INSTRUCTED PT TO USE CALL LIGHT FOR ALL THE NEEDS. BED IS LOW AND LOCKED. SIDE RAILS X2. BED ALARM IS ON. PT DENIES NEEDS AT THIS TIME.
--- NOTE | 2019-06-29 07:07 | NUR ---
BEDSIDE REPORT GIVEN TO THE ONCOMING NURSE
[2019-06-29] MEDS: INSULIN REGULAR, HUMAN 100 UNIT/1 ML 3ML VIAL SQ SCH ×4 (07:30→21:00)
[2019-06-29] MEDS: GLIPIZIDE 5 MG TAB ER PO SCH ×2 (09:00→16:51)
[2019-06-29] MEDS: CARVEDILOL 12.5 MG TAB PO SCH ×2 (09:49→16:51)
[2019-06-29] MEDS: OMEPRAZOLE 20 MG CAP PO SCH (09:49)
[2019-06-29] MEDS: CLOPIDOGREL BISULFATE 75 MG TAB PO SCH (09:49)
[2019-06-29] MEDS: LINEZOLID 600 MG TAB PO SCH ×2 (09:49→22:00)
[2019-06-29] MEDS: LISINOPRIL 20 MG TAB PO SCH (09:49)
[2019-06-29] MEDS: FUROSEMIDE 40 MG TAB PO SCH (09:49)
--- NOTE | 2019-06-29 09:55 | Progress Note ---
DATE: 06/29/2019 SUBJECTIVE: Mr. Dickson is a 74-year-old man with history of coronary artery disease, status post stent, peripheral vascular disease, hypertension, hyperlipidemia, diabetes type 2, left below-knee amputation, history of right heel ulcer, who came to the emergency room because of new right lower extremity ulcer as well as probably osteomyelitis. He was started on wound care and IV antibiotics. He is going to have a bedside debridement today. PHYSICAL EXAMINATION: GENERAL: He is awake and alert temperature is 97.7, blood pressure 142/67. HEART: Regular rate. LUNGS: Clear to auscultation. ABDOMEN: Soft. LABORATORY DATA: Blood Work: White count is 7.83, hemoglobin 8.6, hematocrit 26.9, glucose 142. A wound culture is showing Enterococcus faecalis, Providencia and E. coli. CT of the lower extremity shows worrisome for osteomyelitis. ASSESSMENT: 1. Right big toe ulcer. 2. Grade 2 and grade 4 right lower extremity ulcers with osteomyelitis. 3. Diabetes type 2 with hypoglycemia. 4. Coronary artery disease, status post stent. 5. Peripheral vascular disease. 6. Hypertension. 7. Hyperlipidemia. PLAN: At present time, he is to continue ADA diet, sliding scale with insulin. Continue home medications. Continue wound care and IV antibiotics. He is going to have bedside debridement today. We are trying to salvage his right lower extremity since he already has a left below-knee amputation. The overall prognosis of the patient remains guarded due to his medical problems and right lower extremity ulcers. All this was discussed with the patient. All questions were answered to satisfaction. MD BRENDA Vidal/CHANELL /[id number]
[2019-06-29] MEDS: COLLAGENASE OINTMENT 30 GM TUBE TOP SCH ×2 (10:00→21:00)
[2019-06-29] MEDS: BALSAM PERU/CASTOR OIL 60 GM OINT...G. TP SCH (10:00)
--- NOTE | 2019-06-29 10:23 | Diagnostic Imaging Report ---
EXAMINATION: ANKLE 3 + VIEWS RIGHT INDICATION: Right ankle pain, right heel osteomyelitis COMPARISON: None FINDINGS: No acute fracture or dislocation. The ankle mortise is intact and symmetric. Soft tissue ulceration at the posterior aspect of the right heel overlying the Achilles tendon. No specific underlying radiographic evidence of osteomyelitis. Diffuse atherosclerotic arterial calcifications. IMPRESSION: Posterior heel soft tissue ulceration without specific underlying radiographic evidence of osteomyelitis. No acute osseous injury. Atherosclerotic arterial calcifications. Signed by: Papo Raya MD on 06/29/2019 10:20 AM
[2019-06-29] MEDS: PIPERACILLIN/TAZO 2.25 GM 50 ML IV SCH ×2 (11:44→22:41)
[2019-06-29] MEDS ORDERED: SODIUM CHLORIDE 0.9% 250ML 250 ML ONE (12:02)
--- NOTE | 2019-06-29 12:20 | Progress Note ---
DATE: Infectious Disease Progress Note SUBJECTIVE: The patient is seen and evaluated. Available labs and notes reviewed. Discussed with the nurse. REVIEW OF SYSTEMS: No nausea, vomiting, fever, chills, chest pain, shortness of breath, headache, dysuria, polyuria, rash. OBJECTIVE: VITAL SIGNS: Temperature 97.7, pulse is 69, respirations 22, blood pressure 142/67. GENERAL: Alert and oriented, no acute distress. CV: S1 and S2. CHEST: Equal expansion, clear to auscultation. No acute distress. ABDOMEN: Soft and nontender. No distention. HEENT: Moist. No pallor. No JVD. EXTREMITIES: Right foot is dressed by mobile designer. MEDICATIONS: Medication list reviewed as far as Infectious Disease point of view. Patient is on Zyvox and Zosyn. LABORATORY DATA: No new CBC or BMP available. MICROBIOLOGY: No new microbiology studies available. IMAGING: No new radiology studies available. The patient was seen by a mobile designer this morning and had debridement per my discussion with the nurse and then, the foot was wrapped. ASSESSMENT AND PLAN: 1. Right foot osteomyelitis by CT. 2. Multiple wounds. 3. Wound showed Providencia, Enterococcus and Escherichia coli and culture and sensitivity noted, and all above bacteria are covered between Zosyn and Zyvox. 4. Diabetes. 5. Renal insufficiency. 6. Debility. 7. Peripheral vascular disease. We will continue with the Zyvox and Zosyn. Monitor patient clinically. The patient had debridement today per mobile designer. Overall guarded prognosis. Currently monitor the patient clinically. Follow up with the labs. Discussed with Dr. Leigh. Please refer to chart for more information. MD TESFAYE Flood/MODL /[id number]
--- NOTE | 2019-06-29 17:42 | Consultation ---
DATE OF CONSULTATION: 06/29/2019 SUBJECTIVE: The patient is doing better. Decreased edema to the right lower extremity. Relates no history of fever, chills, nausea, or vomiting. He has been feeling better since he has been getting his IV antibiotics. OBJECTIVE: VITAL SIGNS: Afebrile, pulse rate 60, respirations 17, blood pressure 117/60, and O2 saturation 100%. EXTREMITIES: Ulcerations to the right lower extremity x3 are getting better. Some granulation tissue noted to the right great toe with necrosis noted down the subcutaneous tissue approximately 2 cm in diameter. No bone exposed to the plantar aspect to the right heel ulceration. More than 6 to 7 cm in diameter with Achilles tendon exposure and decreased foul smelling drainage to the posterior aspect of the right heel, measuring more than 3 cm in diameter. ASSESSMENT: Grade 3 ulcer x2, grade 2 ulcer x1, diabetic neuropathy, and peripheral arterial disease. PLAN: Under no anesthesia secondary to his peripheral neuropathy and diabetes, sharp excisional debridement of all ulcers were carried down to tendon, muscle, and subcutaneous tissue respectively. Devitalized tissue sharply excised until good viable bleeding tissue achieved. Deep cultures were taken for aerobic and anaerobic growth. We will continue IV antibiotics. One more debridement will be done Saturday morning before discharge. The patient seemed to responding with IV antibiotics, local wound care, and serial debridements. No guarantees can be given as far salvage the foot and leg, but seems to be responding at this point. CARMENZA Vu/CHANELL /[id number]
--- NOTE | 2019-06-29 18:55 | NUR ---
Bedside nursing report with morning nurse. Pt lying in bed HOB 45. Pt denies pain at this time, recently medicated. Call light within reach. Bed low and locked.
--- NOTE | 2019-06-29 19:00 | NUR ---
BEDSIDE SHIFT REPORT GIVEN TO THE IMPORT/EXPORT CLERK RN. PT DENIED FURTHER NEEDS.
[2019-06-30] VITALS (8 sets, daily range): BP systolic 128–163; BP diastolic 64–86
[2019-06-30 05:39] LABS: BASOPHILS % 0.3 % (0.0-1.0); EOSINOPHILS # (AUTO) 0.3 (0.0-0.4); EOSINOPHILS % 3.3 % (0.0-6.0); HEMATOCRIT 27.4 % (38.2-49.6); HEMOGLOBIN 8.6 g/dL (14.0-18.0); LYMPHOCYTES % 22.7 % (18.0-39.1); MEAN CORPUSCULAR HEMOGLOBIN 27.4 pg (28-32); MEAN CORPUSCULAR HGB CONC 31.4 g/dL (31-35); MEAN CORPUSCULAR VOLUME 87.3 fL (81-99); MONOCYTES # (AUTO) 0.5 (0.2-0.8); MONOCYTES % 5.5 % (4.4-11.3); NEUTROPHILS # (AUTO) 5.9 (2.1-6.9); NEUTROPHILS % 67.9 % (38.7-80.0); PLATELET COUNT 242 x10e3/uL (140-360); RED BLOOD COUNT 3.14 x10e6/uL (4.3-5.7); RED CELL DISTRIBUTION WIDTH 15.2 % (11.7-14.4)
[2019-06-30 06:01] LABS: ANION GAP 12.7 mmol/L (8-16); CALCIUM 8.6 mg/dL (8.4-10.2); CREATININE, SERUM 2.29 mg/dL (0.72-1.25); POTASSIUM 3.7 mmol/L (3.5-5.1)
--- NOTE | 2019-06-30 06:53 | NUR ---
Received patient lying in bed with eyes closed. Respiration even and unlabored without SOB. Call light in reach.
[2019-06-30] MEDS: INSULIN REGULAR, HUMAN 100 UNIT/1 ML 3ML VIAL SQ SCH ×4 (07:30→21:00)
[2019-06-30] MEDS: LINEZOLID 600 MG TAB PO SCH ×2 (08:19→21:49)
[2019-06-30] MEDS: GLIPIZIDE 5 MG TAB ER PO SCH ×2 (08:19→17:50)
[2019-06-30] MEDS: CLOPIDOGREL BISULFATE 75 MG TAB PO SCH (08:19)
[2019-06-30] MEDS: FUROSEMIDE 40 MG TAB PO SCH (08:19)
[2019-06-30] MEDS: OMEPRAZOLE 20 MG CAP PO SCH (08:19)
[2019-06-30] MEDS: LISINOPRIL 20 MG TAB PO SCH (08:32)
[2019-06-30] MEDS: CARVEDILOL 12.5 MG TAB PO SCH ×2 (08:32→17:50)
--- NOTE | 2019-06-30 09:29 | Progress Note ---
DATE: 06/30/2019 SUBJECTIVE: Mr. Dickson is a 74-year-old man with history of coronary artery disease, status post stent, peripheral vascular disease, hypertension, hyperlipidemia, diabetes, left below-knee amputation, right heel ulcer, came to the emergency room, sent by sweet potato disintegrator because of worsening of the ulcer and probably osteomyelitis. He was started on wound care, IV antibiotics. Dr. Hayward is planning to do a debridement tomorrow morning and then discharge him home. The patient wants to go home today. PHYSICAL EXAMINATION: GENERAL: He is awake and alert. VITAL SIGNS: Temperature is 97.6, blood pressure 137/65. HEART: Regular rate. LUNGS: Clear to auscultation. ABDOMEN: Soft. EXTREMITIES: The right lower extremity is under dressing. LABORATORY DATA: On the blood work; white count 8.69, hemoglobin 8.6, hematocrit 27.4. Potassium 3.7, creatinine is 2.29, glucose is 122. The wound culture is showing Enterococcus species, gram-negative rods, E coli. ASSESSMENT: 1. Right big toe ulcer. 2. Grade 2 and grade 4 right lower extremity ulcers with osteomyelitis and positive wound cultures. 3. Diabetes type 2 with hyperglycemia. 4. Coronary artery disease, status post stent. 5. Peripheral vascular disease. 6. Hypertension. 7. Hyperlipidemia. 8. Diabetes with chronic kidney disease. 9. Chronic kidney disease, stage 3. PLAN: At present time is to continue wound care, IV antibiotics, ADA diet, sliding scale with insulin. Continue all his other medications. The plan is debridement tomorrow morning and then discharge him home. Antibiotics as per Infectious Disease. The patient was to go home today and then see Dr. Hayward in the morning. We will discuss this case with him. Please see home medication reconciliation list. All this was discussed with the patient. All questions were answered to satisfaction. MD BRENDA Vidal/CHANELL /[id number]
[2019-06-30] MEDS: COLLAGENASE OINTMENT 30 GM TUBE TOP SCH ×2 (11:21→21:00)
[2019-06-30] MEDS: BALSAM PERU/CASTOR OIL 60 GM OINT...G. TP SCH (11:22)
[2019-06-30] MEDS: PIPERACILLIN/TAZO 2.25 GM 50 ML IV SCH ×2 (11:39→23:00)
--- NOTE | 2019-06-30 12:11 | NUR ---
Nutrition Intervention Note RD Recommendation(s) for Physician: - Continue current diet - Recommend Shayan 1 packet BID to promote wound healing - Recommend MVI with minerals, Vitamin C, and Zinc Sulfate to promote wound healing Plan of Care: RD following, monitoring for tolerance and adequacy. ONS and vitamin/mineral recommendations. Nutrition reason for involvement: follow up RD Assessment 06/29: Follow up. Pt discussed during MDR, pending discharge tomorrow after I&D. Pt reports good appetite and po intake and denies GI distress. Pt with no questions or concerns at time of visit. Chart reviewed. Will continue to monitor. 06/22: 74 YOM admitted for osteomyelitis of the R foot with hx of chronic R foot wound. Pt seen today per MST screen. Pt reports good appetite and po intake currently and [employer]Y PL[employer]NER, noted 90% intake per flow sheets. Pt denies any wt loss, noted insignificant wt loss per prior admit in November 2018 of 190#. Pt denies any GI distress. Pt declined education, very distracted by TV at time of visit. No questions or concerns at time of visit. Chart reviewed. Will continue to monitor. Principal Problems/Diagnoses: R foot osteomyelitis, sepsis PMH: CAD, DM2, HTN, L BKA, HLD GI: WDL, LBM 06/28 Skin: R foot osteomyelitis, chronic wound Labs: 06/28: Na 140, K 3.7, BUN 25, Cr 2.29, Gluc 116, POC Gluc 57-149 06/21: Na 138, K 4.1, BUN 23, Cr 2.19, Gluc 266, POC Gluc 122-208 Meds: abx, glipizide, lasix, insulin, zofran Ht: 73 in Wt: 177.02 lb BMI: 23.4 kg/m2 IBW: 184 lb Malnutrition Evaluation (06/23/19) The patient does not meet criteria for a specified degree of malnutrition at this time. Will re-evaluate at follow-up as appropriate. Energy intake: none, good po intake Weight loss: none, pt denies any wt loss Fat loss: none, chest well developed Muscle loss: none, Supporting Evidence: Fluid accumulation: none observed Functional Status: not assessed Nutrition Prescription (Diet Order): 1800 ADA Estimated Nutritional Needs: [id number] calories/day (25-30 kcal/kg CBW) 84-125 g protein/day (1-1.5 g pro/kg CBW) Diet Adequacy: Meeting calorie needs, Meeting protein needs Diet Tolerance: tolerating po Diet Education Needs Assessment: Diet education indicated, pt declined Nutrition Care Level: Low Nutrition Diagnosis: Increased nutrient needs (protein, vitamin/minerals) related to wound healing as evidenced by chronic R foot wound with osteomyelitis. Goal: Patient will meet 75-100% of estimated needs by follow up Progress: progressing Interventions: -CHO modified diet, Commercial beverage, Multivitamin/mineral supplement therapy Monitoring/Evaluation: -Total energy intake, Total protein intake, Modified diet, Liquid supplement Signed: Maye Hart RD, LD, [facility]
--- NOTE | 2019-06-30 12:14 | Progress Note ---
DATE: SUBJECTIVE: The patient is seen and evaluated. Wounds of right foot seen with Dr. Leigh, mostly seem to be clean with some yellow slough tissues at the heel site, but overall seems improved. REVIEW OF SYSTEMS: No nausea, vomiting, fever, chills, chest pain, shortness of breath, headache, rash, or dysuria. PHYSICAL EXAMINATION: VITAL SIGNS: Temperature is 97.6, pulse is 67, respirations 16, and blood pressure 137/65. GENERAL: Alert and oriented. The patient is legally blind. No acute distress. CV: S1 and S2. CHEST: Equal expansion. Clear to auscultation. No acute distress. ABDOMEN: Soft and nontender. No distention. HEENT: Moist. No pallor. No JVD. EXTREMITIES: Right foot multiple wounds. The tip of the first toe on the lateral side, the heel and Achilles tendon area wound seen and evaluated with Dr. Leigh. MEDICATIONS: Medication list reviewed and as far as Infectious Disease point of view, the patient is on Zosyn and Zyvox. LABORATORY STUDIES: White blood cells 8.69, hemoglobin 8.6, and platelet 242. Sodium 140, potassium 3.7, and creatinine 2.29. MICROBIOLOGY: Wound culture repeat showed gram-negative and Enterococcus with identification and sensitivity pending. Previous wound culture was Providencia, Enterococcus, and E. coli. IMAGING: No new radiology studies available. ASSESSMENT AND PLAN: 1. Osteomyelitis of the right foot by CAT scan. 2. Multiple wounds. Cultures as above. 3. Diabetes. 4. Chronic renal insufficiency. 5. Debility. 6. Discharge planning noted. The patient supposed to be discharged after foot debridement by the time stamp assembler tomorrow. Discussed with Dr. Leigh. Overall guarded prognosis. Please refer to chart for more information. Dictated by Ramsey Gonsales PA-C (Al) Mary Leigh MD /MODL /[id number]
--- NOTE | 2019-06-30 19:11 | NUR ---
Bedside nursing report with morning nurse. Pt lying in bed, HOB 60 degrees. Pt denies pain at this time. Call light within reach. Bed low and locked.
--- NOTE | 2019-06-30 19:24 | NUR ---
Report given to bandage wrapping machine operator. Respiration even and unlabored without SOB. Call light in reach.
[2019-06-30] MEDS ORDERED: MORPHINE SULFATE INJ 4 MG/ML INJ 1ML IV PRN (19:45)
--- NOTE | 2019-06-30 21:36 | Consultation ---
DATE OF CONSULTATION: 06/30/2019 SUBJECTIVE: The patient at bedside, doing better. He is denying any history of fever, chills, nausea, or vomiting. OBJECTIVE: VITAL SIGNS: Afebrile, pulse rate 65, respirations 15, blood pressure 163/86, and O2 saturation 100%. LABORATORY DATA: Show white blood cell count of 8.6, hemoglobin 8.6, platelet count of 242. Ulcerations to the right lower extremity improving slowly, some tendon exposed Achilles tendon, posterior aspect of the ulcer. No bone to the plantar aspect of the right heel with a subcutaneous ulceration to the right great toe. All of them are healing with decreased periwound cellulitis and malodor with pedal pulses diminished, but skin temperature warm to touch. ASSESSMENT: Osteomyelitis grade 3 ulcers x2 with a grade 2 ulcer, right great toe. PLAN: Ulcers will be debrided once again tomorrow. Following debridement if he had good bleeding tissue, he will be discharged with oral antibiotics. He will follow up in the office. Bedside debridement will be done in the morning. CARMENZA Vu/CHANELL /[id number]
[2019-07-01 04:00] VITALS: BP 152/77
--- NOTE | 2019-07-01 06:55 | NUR ---
Bedside report given to morning nurse. NO acute distress noted.
--- NOTE | 2019-07-01 07:00 | NUR ---
Received patient lying in bed with eyes open. Respiration even and unlabored without SOB. Call light in reach.
[2019-07-01] MEDS: INSULIN REGULAR, HUMAN 100 UNIT/1 ML 3ML VIAL SQ SCH (07:30)
--- NOTE | 2019-07-01 07:45 | NUR ---
Patient's bedside glucose is 57 at this time. Alert, awake. Given breakfast.
[2019-07-01 08:09] VITALS: BP 138/68
--- NOTE | 2019-07-01 08:10 | NUR ---
Patient's bedside glucose after breakfast is 187.
[2019-07-01] MEDS: GLIPIZIDE 5 MG TAB ER PO SCH (08:24)
[2019-07-01] MEDS: LISINOPRIL 20 MG TAB PO SCH (08:25)
[2019-07-01] MEDS: LINEZOLID 600 MG TAB PO SCH (08:25)
[2019-07-01] MEDS: CARVEDILOL 12.5 MG TAB PO SCH (08:25)
[2019-07-01] MEDS: FUROSEMIDE 40 MG TAB PO SCH (08:25)
[2019-07-01] MEDS: CLOPIDOGREL BISULFATE 75 MG TAB PO SCH (08:25)
[2019-07-01] MEDS: OMEPRAZOLE 20 MG CAP PO SCH (08:25)
[2019-07-01] MEDS: BALSAM PERU/CASTOR OIL 60 GM OINT...G. TP SCH (08:26)
[2019-07-01] MEDS: COLLAGENASE OINTMENT 30 GM TUBE TOP SCH (08:26)
[2019-07-01 09:14] VITALS: BP 138/68
[2019-07-01] MEDS ORDERED: CIPRO500 MG PO (10:04)
[2019-07-01] MEDS ORDERED: DOXYCYCLINE HY100 MG PO (10:05)
--- NOTE | 2019-07-01 10:30 | NUR ---
PIV to right FA discontinued. Catheter intact, no bleeding noted. Discharge education provided, and discharge packet and prescription given. Verbalized understanding. Transported via wheelchair to private vehicle with all personal belongings taken.
--- NOTE | 2019-07-01 11:34 | Progress Note ---
DATE: SUBJECTIVE: The patient is seen and evaluated. Discussed with the nurse and made sure that the nurse is aware of the prescription in the chart, and to be given to the patient on discharge. Discussed with Dr. Leigh in details. REVIEW OF SYSTEMS: No nausea, vomiting, fever, chills, chest pain, shortness of breath, headache, dysuria, polyuria, or rash. PHYSICAL EXAMINATION: VITAL SIGNS: Temperature 97.9, pulse is 61, respirations 17, blood pressure 138/68. GENERAL: Alert and oriented, in no acute distress. CV: S1 and S2. CHEST: Equal expansion. Clear to auscultation. No acute distress. ABDOMEN: Soft and nontender. No distention. HEENT: Moist. No pallor. No JVD. MEDICATIONS: Medication list reviewed. As far as Infectious Disease point of view, the patient is on Zosyn and Zyvox. LABORATORY STUDIES: No new CBC or BMP from today. MICROBIOLOGY: No new microbiology studies available. IMAGING: No new imaging available. ASSESSMENT AND PLAN: 1. Osteomyelitis of the right foot. 2. Multiple wounds, all seem to be clean, fairly. 3. Diabetes. 4. Chronic renal insufficiency. 5. Debility. 6. Legally blind. 7. Discharge planning in progress. 8. Discussed with Dr. Leigh. Prescriptions are in the chart for doxycycline and ciprofloxacin for a total of 6 weeks. Again, discussed with the nurses. Discussed with Dr. Leigh. Follow up with Dr. Leigh in 2 weeks after discharge. Please refer to chart for more information. Dictated by Ramsey Gonsales PA-C (Al) Mary Leigh MD /MODL /[id number]
--- NOTE | 2019-07-01 12:34 | Progress Note ---
DATE: 07/01/2019 SUBJECTIVE: The patient at bedside, ready to go home. Denies any history of fever, chills, nausea, or vomiting. OBJECTIVE: VITAL SIGNS: Afebrile, pulse rate 61, respirations 17, blood pressure 138/68, and O2 saturation 97%. LABORATORY DATA: Labs show white blood cell count of 8.6. Has multiple ulcerations noted to the right lower extremity with Achilles tendon exposed to the posterior aspect with the ulcer measuring more than 3 cm in diameter. Ulceration, plantar aspect right heel getting better. No bone exposed, more than 6-7 cm in diameter with an ulceration down to subcutaneous tissue. Distal aspect right great toe, less than 2 cm in diameter. Pedal pulses are diminished. Skin, temperature warm to touch. ASSESSMENT: Grade 3 ulcer x2, grade 2 ulcer x1, peripheral arterial disease, diabetic neuropathy with osteomyelitis. PLAN: Sharp excisional debridement of all ulcers was performed down to muscle, tendon, and subcutaneous tissue respectively. Devitalized tissue was sharply excised via the use of a sterile 10 blade until good viable bleeding tissue achieved. The patient will be going home today and will follow up next week on oral Cipro and doxycycline. The patient instructed to stay offloading. Keep wounds clean and if he starts having fever, he is to return to the office sooner. Debridements were carried until good viable bleeding tissue achieved x3, muscle x2, subcutaneous x1 via sharp excisional debridement. CARMENZA Vu/CHANELL /[id number]
--- NOTE | 2019-07-01 19:36 | Discharge Summary ---
HISTORY OF PRESENT ILLNESS: Mr. Dickson is a 74-year-old man with history of coronary artery disease, status post stent, peripheral vascular disease, hypertension, hyperlipidemia, diabetes, left below-knee amputation right heel, also came to the emergency room with worsening of the ulcer and probably osteomyelitis. He was started on wound care and IV antibiotics. He is having debridement today and the plan is to discharge him home today with p.o. antibiotics. PHYSICAL EXAMINATION: GENERAL: He is awake and alert. He wants to go home. VITAL SIGNS: Temperature is 97.9, blood pressure is 138/68. HEART: Regular rate. LUNGS: Poor inspiratory effort. ABDOMEN: Soft. LABORATORY DATA: On the blood work, white count is 8.69, hemoglobin 8.6, hematocrit 27.4. Glucose was low today 57. Wound culture show gram-negative bacillus, Enterococcus species, and E. coli. ASSESSMENT AND PLAN: 1. Right big toe ulcer. 2. Grade 2 and grade 4 right lower extremity ulcers with osteomyelitis and positive wound cultures. 3. Diabetes type 2 with hyperglycemia. 4. Coronary artery disease, status post stent. 5. Peripheral vascular disease. 6. Hypertension. 7. Hyperlipidemia. 8. Diabetes with chronic kidney disease. 9. Chronic kidney disease, stage 3. PLAN: At the present time is to discharge the patient home on p.o. antibiotics. He is going to be on Cipro 500 mg daily and doxycycline 100 mg twice a day for four weeks. He needs to follow up with Dr. Hayward, with me, and with Dr. Leigh as directed. Please see home medication reconciliation list. All this was discussed with the patient. All questions were answered to satisfaction. MD BRENDA Vidal/CHANELL /[id number]
== END 2019-07-01 10:30 | disposition home or self-care (01) | DRG 854 ==
LOC: ER 22:00 → ERHOLD 06-23 00:08 → MED/SURG2 06-23 01:31
PROVIDERS: ADMIT Internal Medicine; ATTEND Internal Medicine
PROC: 0QBQ0ZZ Excision of Right Toe Phalanx, Open Approach (ICD-10-PCS; 2019-06-24)
PROC: 0KBV0ZZ Excision of Right Foot Muscle, Open Approach (ICD-10-PCS; 2019-06-26)
PROC: 0KBV0ZZ Excision of Right Foot Muscle, Open Approach (ICD-10-PCS; principal; 2019-06-29)
PROC: 0KBV0ZZ Excision of Right Foot Muscle, Open Approach (ICD-10-PCS; 2019-07-01)
DX: A41.9 Sepsis, unspecified organism (principal); I13.0 Hypertensive heart and chronic kidney disease with heart failure and stage 1 through stage 4 chronic kidney disease, or unspecified chronic kidney disease; M86.271 Subacute osteomyelitis, right ankle and foot; L03.115 Cellulitis of right lower limb; L97.416 Non-pressure chronic ulcer of right heel and midfoot with bone involvement without evidence of necrosis; I50.42 Chronic combined systolic (congestive) and diastolic (congestive) heart failure; Z86.73 Personal history of transient ischemic attack (TIA), and cerebral infarction without residual deficits; E11.22 Type 2 diabetes mellitus with diabetic chronic kidney disease; Z96.642 Presence of left artificial hip joint; Z95.810 Presence of automatic (implantable) cardiac defibrillator; F17.210 Nicotine dependence, cigarettes, uncomplicated; Z88.8 Allergy status to other drugs, medicaments and biological substances; Z83.3 Family history of diabetes mellitus; Z82.49 Family history of ischemic heart disease and other diseases of the circulatory system; R65.20 Severe sepsis without septic shock; I25.10 Atherosclerotic heart disease of native coronary artery without angina pectoris; Z89.512 Acquired absence of left leg below knee; E78.5 Hyperlipidemia, unspecified; Z95.5 Presence of coronary angioplasty implant and graft; E11.51 Type 2 diabetes mellitus with diabetic peripheral angiopathy without gangrene; E11.621 Type 2 diabetes mellitus with foot ulcer; E11.69 Type 2 diabetes mellitus with other specified complication; H54.8 Legal blindness, as defined in USA; R53.81 Other malaise; D64.9 Anemia, unspecified; N18.2 Chronic kidney disease, stage 2 (mild); B96.20 Unspecified Escherichia coli [E. coli] as the cause of diseases classified elsewhere; B95.2 Enterococcus as the cause of diseases classified elsewhere; B96.89 Other specified bacterial agents as the cause of diseases classified elsewhere; L97.513 Non-pressure chronic ulcer of other part of right foot with necrosis of muscle; E11.65 Type 2 diabetes mellitus with hyperglycemia
CPT/HCPCS: 36415; 80048; 80053; 82948; 83605; 83880; 85025; 85610; 85730; 87040; 87071; 87075; 87186; 87205; 99251; 99284; J1817; J2020; J2270; J2405; J2543; J3370; J7030; J7050

== ENCOUNTER 2020-01-26 10:42 | Inpatient (IN) | payer MEDICARE ==
[~2020-01-26] VITALS: Ht 182.9 cm; Wt 93.4 kg
[~2020-01-26 10:42] MED LIST changes: +CIPRO500 MG PO; +DOXYCYCLINE HY100 MG PO
[2020-01-26 17:52] VITALS: BP 172/92
[2020-01-26 18:49] VITALS: BP 172/92
[2020-01-26 19:36] VITALS: BP 172/92
[2020-01-26 19:45] VITALS: BP 142/66
[2020-01-26] MEDS ORDERED: DEXTROSE 50% SYRINGE 50 ML IV PRN (21:30)
[2020-01-26] MEDS: INSULIN LISPRO 100 UNIT/1 ML 3ML VIAL SQ SCH (22:00)
[2020-01-26] MEDS: SODIUM CHLORIDE 0.45% 1,000 ML IV SCH (22:34)
[2020-01-26] MEDS: TRAZODONE HCL 50 MG TAB PO PRN (22:34)
[2020-01-26] MEDS: CARVEDILOL 12.5 MG TAB PO SCH (22:34)
[2020-01-26] MEDS: HYDROCODONE/APAP 7.5MG-325MG 1 EA TAB PO PRN (22:35)
[2020-01-26] MEDS ORDERED: CEFTRIAXONE SOD 1 GM/NS 50 ML 50 ML IV ONE (23:45)
[2020-01-26] MEDS: VANCOMYCIN 1GM/NS 250 ML 250 ML IV SCH (23:45)
[2020-01-27 05:22] LABS: BASOPHILS % 0.3 % (0.0-1.0); EOSINOPHILS # (AUTO) 0.3 (0.0-0.4); EOSINOPHILS % 3.1 % (0.0-6.0); HEMATOCRIT 24.9 % (38.2-49.6); HEMOGLOBIN 7.9 g/dL (14.0-18.0); LYMPHOCYTES # (AUTO) 2.7 (1.0-3.2); LYMPHOCYTES % 30.5 % (18.0-39.1); MEAN CORPUSCULAR HEMOGLOBIN 27.3 pg (28-32); MEAN CORPUSCULAR HGB CONC 31.7 g/dL (31-35); MEAN CORPUSCULAR VOLUME 86.2 fL (81-99); MONOCYTES # (AUTO) 0.8 (0.2-0.8); MONOCYTES % 8.8 % (4.4-11.3); NEUTROPHILS # (AUTO) 5.1 (2.1-6.9); PLATELET COUNT 235 x10e3/uL (140-360); RED BLOOD COUNT 2.89 x10e6/uL (4.3-5.7); RED CELL DISTRIBUTION WIDTH 13.8 % (11.7-14.4)
[2020-01-27 05:42] LABS: ALBUMIN 2.1 g/dL (3.5-5.0); ALBUMIN/GLOBULIN RATIO 0.6 (0.8-2.0); ANION GAP 11.6 mmol/L (8-16); CALCIUM 8.4 mg/dL (8.4-10.2); CREATININE, SERUM 1.8 mg/dL (0.72-1.25); POTASSIUM 3.6 mmol/L (3.5-5.1)
[2020-01-27] MEDS: INSULIN LISPRO 100 UNIT/1 ML 3ML VIAL SQ SCH ×4 (07:30→20:33)
[2020-01-27 08:12] VITALS: BP 132/72
[2020-01-27 08:15] VITALS: BP 132/72
[2020-01-27] MEDS: LISINOPRIL 20 MG TAB PO SCH (09:23)
[2020-01-27] MEDS: CARVEDILOL 12.5 MG TAB PO SCH ×2 (09:24→16:44)
[2020-01-27] MEDS: CLOPIDOGREL BISULFATE 75 MG TAB PO SCH (09:24)
[2020-01-27] MEDS: SODIUM CHLORIDE 0.45% 1,000 ML IV SCH ×2 (10:50→17:16)
[2020-01-27 12:08] VITALS: BP 122/70
[2020-01-27] MEDS ORDERED: FENTANYL CITRATE/PF 100MCG/2 ML INJ ONE (12:45)
[2020-01-27] MEDS ORDERED: MIDAZOLAM HCL 2 MG/2 ML VIAL ONE (12:45)
[2020-01-27 14:39] LABS: CHOL/HDL RATIO 4.2 (3.9-4.7)
[2020-01-27 15:46] VITALS: BP 139/72
[2020-01-27] MEDS: HYDROCODONE/APAP 7.5MG-325MG 1 EA TAB PO PRN (19:25)
[2020-01-27 20:00] VITALS: BP 139/72
[2020-01-27 20:24] VITALS: BP 137/64
[2020-01-27] MEDS: TRAZODONE HCL 50 MG TAB PO PRN (21:45)
[2020-01-27] MEDS: CEFTRIAXONE SOD 1 GM/NS 50 ML 50 ML IV SCH (21:50)
[2020-01-27] MEDS: VANCOMYCIN 1GM/NS 250 ML 250 ML IV SCH (23:45)
[2020-01-28] VITALS (8 sets, daily range): BP systolic 146–169; BP diastolic 61–85
[2020-01-28] MEDS ORDERED: BETAMETHASONE DISODIUM PHOS 6 MG/ML VIAL ONE (07:12)
[2020-01-28] MEDS ORDERED: LIDOCAINE HCL 1% LOCAL INJ 20 ML VIAL ONE (07:12)
[2020-01-28] MEDS ORDERED: BUPIVACAINE HCL 0.5% INJ 30 ML VIAL INJ ONE (07:12)
[2020-01-28] MEDS ORDERED: MUPIROCIN 2% OINT 22 GM TUBE ONE (07:12)
[2020-01-28] MEDS: INSULIN LISPRO 100 UNIT/1 ML 3ML VIAL SQ SCH ×4 (07:30→20:58)
[2020-01-28] MEDS ORDERED: DEXTROSE 5% 250ML 250 ML IV ONE (07:42)
[2020-01-28] MEDS ORDERED: VANCOMYCIN HCL 1 GM VIAL ONE (07:44)
[2020-01-28 09:09] LABS: BASOPHILS % 0.4 % (0.0-1.0); EOSINOPHILS # (AUTO) 0.2 (0.0-0.4); EOSINOPHILS % 2.9 % (0.0-6.0); HEMATOCRIT 26.8 % (38.2-49.6); HEMOGLOBIN 8.5 g/dL (14.0-18.0); LYMPHOCYTES # (AUTO) 2.2 (1.0-3.2); LYMPHOCYTES % 26.5 % (18.0-39.1); MEAN CORPUSCULAR HEMOGLOBIN 27.3 pg (28-32); MEAN CORPUSCULAR HGB CONC 31.7 g/dL (31-35); MEAN CORPUSCULAR VOLUME 86.2 fL (81-99); MONOCYTES # (AUTO) 0.7 (0.2-0.8); MONOCYTES % 8.4 % (4.4-11.3); NEUTROPHILS # (AUTO) 5.1 (2.1-6.9); NEUTROPHILS % 61.3 % (38.7-80.0); PLATELET COUNT 204 x10e3/uL (140-360); RED BLOOD COUNT 3.11 x10e6/uL (4.3-5.7); RED CELL DISTRIBUTION WIDTH 13.6 % (11.7-14.4)
[2020-01-28 09:29] LABS: ALBUMIN 2.1 g/dL (3.5-5.0); ALBUMIN/GLOBULIN RATIO 0.6 (0.8-2.0); ANION GAP 10.8 mmol/L (8-16); CALCIUM 8.2 mg/dL (8.4-10.2); CREATININE, SERUM 1.54 mg/dL (0.72-1.25); POTASSIUM 3.8 mmol/L (3.5-5.1)
[2020-01-28] MEDS ORDERED: SODIUM CHLORIDE 0.9% 250ML 250 ML IV ONE (10:30)
[2020-01-28] MEDS: CARVEDILOL 12.5 MG TAB PO SCH ×2 (12:49→16:33)
[2020-01-28] MEDS: LISINOPRIL 20 MG TAB PO SCH (12:49)
[2020-01-28 14:06] LABS: HEMATOCRIT 28.2 % (38.2-49.6); HEMOGLOBIN 8.9 g/dL (14.0-18.0)
[2020-01-28] MEDS: SODIUM CHLORIDE 0.45% 1,000 ML IV SCH (16:49)
[2020-01-28] MEDS: HYDROCODONE/APAP 7.5MG-325MG 1 EA TAB PO PRN ×2 (17:08→23:45)
[2020-01-28] MEDS: CEFTRIAXONE SOD 1 GM/NS 50 ML 50 ML IV SCH (20:59)
[2020-01-28] MEDS: TRAZODONE HCL 50 MG TAB PO PRN (21:55)
[2020-01-28] MEDS: VANCOMYCIN 1GM/NS 250 ML 250 ML IV SCH (22:25)
[2020-01-29] VITALS (8 sets, daily range): BP systolic 130–166; BP diastolic 66–88
[2020-01-29] MEDS: SODIUM CHLORIDE 0.45% 1,000 ML IV SCH ×2 (02:50→20:48)
[2020-01-29] MEDS: INSULIN LISPRO 100 UNIT/1 ML 3ML VIAL SQ SCH ×4 (07:30→20:19)
[2020-01-29] MEDS: CARVEDILOL 12.5 MG TAB PO SCH ×2 (08:35→16:58)
[2020-01-29] MEDS: LISINOPRIL 20 MG TAB PO SCH (08:36)
[2020-01-29] MEDS: HYDROCODONE/APAP 7.5MG-325MG 1 EA TAB PO PRN (19:12)
[2020-01-29] MEDS: CEFTRIAXONE SOD 1 GM/NS 50 ML 50 ML IV SCH (20:36)
[2020-01-29] MEDS: TRAZODONE HCL 50 MG TAB PO PRN (20:36)
[2020-01-30] VITALS (9 sets, daily range): BP systolic 150–158; BP diastolic 62–77
[2020-01-30] MEDS: VANCOMYCIN 1GM/NS 250 ML 250 ML IV SCH (00:53)
[2020-01-30] MEDS: SODIUM CHLORIDE 0.45% 1,000 ML IV SCH ×2 (07:23→20:39)
[2020-01-30] MEDS: INSULIN LISPRO 100 UNIT/1 ML 3ML VIAL SQ SCH ×4 (07:30→21:00)
[2020-01-30] MEDS: CARVEDILOL 12.5 MG TAB PO SCH ×2 (07:49→17:27)
[2020-01-30] MEDS: LISINOPRIL 20 MG TAB PO SCH (07:50)
[2020-01-30] MEDS: CEFEPIME 1GM/NS 0.9% 50 ML 50 ML IV SCH (10:27)
[2020-01-30] MEDS: CLOPIDOGREL BISULFATE 75 MG TAB PO SCH (10:27)
[2020-01-30 10:49] LABS: BASOPHILS % 0.5 % (0.0-1.0); EOSINOPHILS # (AUTO) 0.2 (0.0-0.4); EOSINOPHILS % 4.1 % (0.0-6.0); HEMATOCRIT 26.4 % (38.2-49.6); HEMOGLOBIN 8.6 g/dL (14.0-18.0); LYMPHOCYTES # (AUTO) 1.7 (1.0-3.2); MEAN CORPUSCULAR HEMOGLOBIN 27.7 pg (28-32); MEAN CORPUSCULAR HGB CONC 32.6 g/dL (31-35); MEAN CORPUSCULAR VOLUME 84.9 fL (81-99); MONOCYTES # (AUTO) 0.5 (0.2-0.8); MONOCYTES % 8.6 % (4.4-11.3); NEUTROPHILS # (AUTO) 3.4 (2.1-6.9); NEUTROPHILS % 57.6 % (38.7-80.0); PLATELET COUNT 210 x10e3/uL (140-360); RED BLOOD COUNT 3.11 x10e6/uL (4.3-5.7); RED CELL DISTRIBUTION WIDTH 13.3 % (11.7-14.4)
[2020-01-30 11:08] LABS: ALBUMIN 2.1 g/dL (3.5-5.0); ALBUMIN/GLOBULIN RATIO 0.6 (0.8-2.0); ANION GAP 10.9 mmol/L (8-16); CREATININE, SERUM 1.61 mg/dL (0.72-1.25); POTASSIUM 3.9 mmol/L (3.5-5.1)
[2020-01-30] MEDS: MORPHINE SULFATE 2 MG/ML SYR 1ML IV PRN (20:46)
[2020-01-31] VITALS (7 sets, daily range): BP systolic 136–166; BP diastolic 63–77
[2020-01-31 06:48] LABS: BASOPHILS % 0.6 % (0.0-1.0); EOSINOPHILS # (AUTO) 0.2 (0.0-0.4); EOSINOPHILS % 3.6 % (0.0-6.0); HEMATOCRIT 26.1 % (38.2-49.6); HEMOGLOBIN 8.2 g/dL (14.0-18.0); LYMPHOCYTES # (AUTO) 1.8 (1.0-3.2); LYMPHOCYTES % 27.8 % (18.0-39.1); MEAN CORPUSCULAR HEMOGLOBIN 26.8 pg (28-32); MEAN CORPUSCULAR HGB CONC 31.4 g/dL (31-35); MEAN CORPUSCULAR VOLUME 85.3 fL (81-99); MONOCYTES # (AUTO) 0.5 (0.2-0.8); MONOCYTES % 7.8 % (4.4-11.3); NEUTROPHILS # (AUTO) 3.9 (2.1-6.9); NEUTROPHILS % 59.9 % (38.7-80.0); PLATELET COUNT 231 x10e3/uL (140-360); RED BLOOD COUNT 3.06 x10e6/uL (4.3-5.7); RED CELL DISTRIBUTION WIDTH 13.5 % (11.7-14.4)
[2020-01-31] MEDS: INSULIN LISPRO 100 UNIT/1 ML 3ML VIAL SQ SCH ×4 (07:30→20:24)
[2020-01-31 07:40] LABS: ALBUMIN 2.1 g/dL (3.5-5.0); ALBUMIN/GLOBULIN RATIO 0.6 (0.8-2.0); ANION GAP 8.8 mmol/L (8-16); CALCIUM 8.2 mg/dL (8.4-10.2); CREATININE, SERUM 1.51 mg/dL (0.72-1.25); POTASSIUM 3.8 mmol/L (3.5-5.1)
[2020-01-31] MEDS: SODIUM CHLORIDE 0.45% 1,000 ML IV SCH ×2 (08:10→21:55)
[2020-01-31] MEDS: LISINOPRIL 20 MG TAB PO SCH (08:57)
[2020-01-31] MEDS: CLOPIDOGREL BISULFATE 75 MG TAB PO SCH (08:57)
[2020-01-31] MEDS: CARVEDILOL 12.5 MG TAB PO SCH ×2 (08:58→17:45)
[2020-01-31] MEDS: CEFEPIME 1GM/NS 0.9% 50 ML 50 ML IV SCH ×2 (09:13→09:19)
[2020-01-31] MEDS: HYDROCODONE/APAP 7.5MG-325MG 1 EA TAB PO PRN (09:15)
[2020-01-31] MEDS: AMLODIPINE BESYLATE 5 MG TAB PO SCH (13:43)
[2020-01-31] MEDS: CIPROFLOXACIN 400 MG/D5W 200ML 200 ML IV SCH (13:59)
[2020-01-31] MEDS: MORPHINE SULFATE 2 MG/ML SYR 1ML IV PRN (22:29)
[2020-02-01] VITALS (7 sets, daily range): BP systolic 136–171; BP diastolic 69–74
[2020-02-01] MEDS: CIPROFLOXACIN 400 MG/D5W 200ML 200 ML IV SCH ×2 (01:03→12:56)
[2020-02-01] MEDS: INSULIN LISPRO 100 UNIT/1 ML 3ML VIAL SQ SCH ×4 (07:30→19:59)
[2020-02-01] MEDS: LISINOPRIL 20 MG TAB PO SCH (08:00)
[2020-02-01] MEDS: CLOPIDOGREL BISULFATE 75 MG TAB PO SCH (08:35)
[2020-02-01] MEDS: AMLODIPINE BESYLATE 5 MG TAB PO SCH (08:35)
[2020-02-01] MEDS: CARVEDILOL 12.5 MG TAB PO SCH ×2 (09:00→17:56)
[2020-02-01] MEDS: HYDROCODONE/APAP 7.5MG-325MG 1 EA TAB PO PRN ×2 (09:07→19:13)
[2020-02-01] MEDS: SODIUM CHLORIDE 0.45% 1,000 ML IV SCH ×2 (10:50→19:54)
[2020-02-01] MEDS: CEFEPIME 1GM/NS 0.9% 50 ML 50 ML IV SCH (16:02)
[2020-02-01] MEDS: TRAZODONE HCL 50 MG TAB PO PRN (21:30)
[2020-02-02 01:19] VITALS: BP 160/70
[2020-02-02 05:17] VITALS: BP 168/66
[2020-02-02] MEDS: INSULIN LISPRO 100 UNIT/1 ML 3ML VIAL SQ SCH ×2 (07:30→11:30)
[2020-02-02] MEDS: HYDROCODONE/APAP 7.5MG-325MG 1 EA TAB PO PRN (07:55)
[2020-02-02] MEDS: CARVEDILOL 12.5 MG TAB PO SCH (07:56)
[2020-02-02] MEDS: CLOPIDOGREL BISULFATE 75 MG TAB PO SCH (07:56)
[2020-02-02] MEDS: AMLODIPINE BESYLATE 5 MG TAB PO SCH (07:56)
[2020-02-02] MEDS: LISINOPRIL 20 MG TAB PO SCH (07:56)
[2020-02-02 08:41] VITALS: BP 169/73
[2020-02-02 08:51] VITALS: BP 169/73
[2020-02-02] MEDS: SODIUM CHLORIDE 0.45% 1,000 ML IV SCH (10:13)
[2020-02-02 11:36] VITALS: BP 144/67
[2020-02-02] MEDS ORDERED: DOXYCYCLINE HY100 MG PO (13:50)
[2020-02-02] MEDS: CEFEPIME 1GM/NS 0.9% 50 ML 50 ML IV SCH (13:57)
== END 2020-02-02 14:45 | disposition home or self-care (01) | DRG 629 ==
LOC: MED/SURG3 17:16
PROVIDERS: ADMIT Internal Medicine; ATTEND Internal Medicine
PROC: 0QBL0ZZ Excision of Right Tarsal, Open Approach (ICD-10-PCS; 2020-01-28)
PROC: 0J9Q0ZZ Drainage of Right Foot Subcutaneous Tissue and Fascia, Open Approach (ICD-10-PCS; 2020-01-28)
PROC: 0QBN0ZZ Excision of Right Metatarsal, Open Approach (ICD-10-PCS; principal; 2020-01-28 07:30)
PROC: 0QBN0ZZ Excision of Right Metatarsal, Open Approach (ICD-10-PCS; 2020-02-02)
PROC: 0QBG0ZZ Excision of Right Tibia, Open Approach (ICD-10-PCS; 2020-02-02)
DX: E11.69 Type 2 diabetes mellitus with other specified complication (principal); L97.414 Non-pressure chronic ulcer of right heel and midfoot with necrosis of bone; L03.115 Cellulitis of right lower limb; I13.0 Hypertensive heart and chronic kidney disease with heart failure and stage 1 through stage 4 chronic kidney disease, or unspecified chronic kidney disease; M86.171 Other acute osteomyelitis, right ankle and foot; N17.9 Acute kidney failure, unspecified; I25.10 Atherosclerotic heart disease of native coronary artery without angina pectoris; H54.8 Legal blindness, as defined in USA; E78.5 Hyperlipidemia, unspecified; F17.210 Nicotine dependence, cigarettes, uncomplicated; E11.621 Type 2 diabetes mellitus with foot ulcer; E11.22 Type 2 diabetes mellitus with diabetic chronic kidney disease; N18.30 Chronic kidney disease, stage 3 unspecified; E11.40 Type 2 diabetes mellitus with diabetic neuropathy, unspecified; L97.514 Non-pressure chronic ulcer of other part of right foot with necrosis of bone; I50.9 Heart failure, unspecified; Z95.810 Presence of automatic (implantable) cardiac defibrillator; D64.9 Anemia, unspecified; B96.5 Pseudomonas (aeruginosa) (mallei) (pseudomallei) as the cause of diseases classified elsewhere; B96.89 Other specified bacterial agents as the cause of diseases classified elsewhere; Z89.512 Acquired absence of left leg below knee; Z95.5 Presence of coronary angioplasty implant and graft; Z96.642 Presence of left artificial hip joint; Z79.4 Long term (current) use of insulin
CPT/HCPCS: 36415; 80053; 80061; 80202; 82948; 83880; 85014; 85018; 85025; 86850; 86900; 86920; 87071; 87075; 87186; 87205; 93005; 93306; 96361; 99251; J0692; J0696; J0720; J2001; J2250; J2270; J3010; J3370; J7070; U0002

== ENCOUNTER 2020-09-12 13:25 | Inpatient (IN) | payer MEDICARE ==
[~2020-09-12] VITALS: Ht 185.4 cm; Wt 93.4 kg
[2020-09-12 14:48] LABS: BASOPHILS % 0.3 % (0.0-1.0); EOSINOPHILS # (AUTO) 0.2 (0.0-0.4); EOSINOPHILS % 2.2 % (0.0-6.0); HEMATOCRIT 28.9 % (38.2-49.6); LYMPHOCYTES # (AUTO) 1.6 (1.0-3.2); MEAN CORPUSCULAR HEMOGLOBIN 26.6 pg (28-32); MEAN CORPUSCULAR HGB CONC 31.1 g/dL (31-35); MEAN CORPUSCULAR VOLUME 85.5 fL (81-99); MONOCYTES # (AUTO) 0.7 (0.2-0.8); NEUTROPHILS % 67.1 % (38.7-80.0); PLATELET COUNT 271 x10e3/uL (140-360); RED BLOOD COUNT 3.38 x10e6/uL (4.3-5.7); RED CELL DISTRIBUTION WIDTH 17.2 % (11.7-14.4)
[2020-09-12 14:58] LABS: ALBUMIN 2.9 g/dL (3.5-5.0); ALBUMIN/GLOBULIN RATIO 0.7 (0.8-2.0); ANION GAP 10.7 mmol/L (8-16); CALCIUM 8.5 mg/dL (8.4-10.2); CREATININE, SERUM 3.34 mg/dL (0.72-1.25); POTASSIUM 3.7 mmol/L (3.5-5.1)
[2020-09-12 15:05] LABS: CREATINE KINASE MB 1.2 ng/mL (0-5.0)
[2020-09-12] MEDS: DEXTROSE 5% 1,000 ML IV SCH (17:00)
[2020-09-12] MEDS: SODIUM CHLORIDE 0.9% 1000ML 1,000 ML IV SCH (17:00)
[2020-09-12] MEDS ORDERED: DEXTROSE 5% 1,000 ML IV ONE (17:26)
[2020-09-12] MEDS ORDERED: DEXTROSE 50% SYRINGE 50 ML IV PRN (19:00)
[2020-09-12] MEDS: INSULIN LISPRO 100 UNIT/1 ML 3ML VIAL SQ SCH (20:16)
[2020-09-13] VITALS (8 sets, daily range): BP systolic 95–143; BP diastolic 55–67
[2020-09-13] MEDS: SODIUM CHLORIDE 0.9% 1000ML 1,000 ML IV SCH (01:00)
[2020-09-13 03:00] LABS: CLARITY,URINE CLEAR (CLEAR); COLOR,URINE YELLOW (YELLOW); KETONES,URINE NEGATIVE (NEGATIVE); LEUKOCYTE ESTERASE ,URINE NEGATIVE (NEGATIVE); NITRITE,URINE NEGATIVE (NEGATIVE); PROTEIN,URINE DIPSTICK NEGATIVE (NEGATIVE); URINE UROBILINOGEN 0.2 mg/dL (0.2 - 1)
[2020-09-13 03:05] LABS: BACTERIA,URINE RARE /HPF; EPITHELIAL CELLS,URINE RARE /LPF; RBC,URINE 0-5 /HPF (0-5)
[2020-09-13] MEDS: DEXTROSE 5% 1,000 ML IV SCH ×2 (05:41→14:20)
[2020-09-13 06:12] LABS: BASOPHILS % 0.3 % (0.0-1.0); EOSINOPHILS # (AUTO) 0.2 (0.0-0.4); EOSINOPHILS % 2.2 % (0.0-6.0); HEMATOCRIT 28.1 % (38.2-49.6); HEMOGLOBIN 9.2 g/dL (14.0-18.0); LYMPHOCYTES # (AUTO) 1.7 (1.0-3.2); LYMPHOCYTES % 24.3 % (18.0-39.1); MEAN CORPUSCULAR HEMOGLOBIN 27.5 pg (28-32); MEAN CORPUSCULAR HGB CONC 32.7 g/dL (31-35); MEAN CORPUSCULAR VOLUME 83.9 fL (81-99); MONOCYTES # (AUTO) 0.6 (0.2-0.8); MONOCYTES % 9.1 % (4.4-11.3); NEUTROPHILS # (AUTO) 4.3 (2.1-6.9); NEUTROPHILS % 63.7 % (38.7-80.0); PLATELET COUNT 287 x10e3/uL (140-360); RED BLOOD COUNT 3.35 x10e6/uL (4.3-5.7); RED CELL DISTRIBUTION WIDTH 16.9 % (11.7-14.4)
[2020-09-13 06:30] LABS: ALBUMIN 2.7 g/dL (3.5-5.0); ALBUMIN/GLOBULIN RATIO 0.7 (0.8-2.0); ANION GAP 9.7 mmol/L (8-16); CALCIUM 8.4 mg/dL (8.4-10.2); CREATININE, SERUM 2.96 mg/dL (0.72-1.25); POTASSIUM 3.7 mmol/L (3.5-5.1)
[2020-09-13] MEDS: INSULIN LISPRO 100 UNIT/1 ML 3ML VIAL SQ SCH ×4 (07:30→21:00)
[2020-09-13] MEDS: CARVEDILOL 12.5 MG TAB PO SCH ×2 (09:00→17:00)
[2020-09-13] MEDS: OMEPRAZOLE 20 MG CAP PO SCH ×2 (09:00→09:05)
[2020-09-13] MEDS: CLOPIDOGREL BISULFATE 75 MG TAB PO SCH (09:00)
[2020-09-13] MEDS: LISINOPRIL 20 MG TAB PO SCH (09:00)
[2020-09-13] MEDS: Cefazolin 1 GM in SODIUM CHLORIDE 0.9% 50ML 50 ML IV SCH ×2 (14:20→22:22)
[2020-09-13] MEDS ORDERED: LORAZEPAM INJ 2 MG/ML VIAL IV ONE (22:15)
[2020-09-14] VITALS (8 sets, daily range): BP systolic 100–154; BP diastolic 60–71
[2020-09-14 04:58] LABS: BASOPHILS % 0.3 % (0.0-1.0); EOSINOPHILS # (AUTO) 0.1 (0.0-0.4); EOSINOPHILS % 2.1 % (0.0-6.0); HEMATOCRIT 28.8 % (38.2-49.6); HEMOGLOBIN 9.3 g/dL (14.0-18.0); LYMPHOCYTES # (AUTO) 1.6 (1.0-3.2); LYMPHOCYTES % 23.9 % (18.0-39.1); MEAN CORPUSCULAR HEMOGLOBIN 26.9 pg (28-32); MEAN CORPUSCULAR HGB CONC 32.3 g/dL (31-35); MEAN CORPUSCULAR VOLUME 83.2 fL (81-99); MONOCYTES # (AUTO) 0.6 (0.2-0.8); MONOCYTES % 9.2 % (4.4-11.3); NEUTROPHILS # (AUTO) 4.2 (2.1-6.9); PLATELET COUNT 314 x10e3/uL (140-360); RED BLOOD COUNT 3.46 x10e6/uL (4.3-5.7); RED CELL DISTRIBUTION WIDTH 16.9 % (11.7-14.4)
[2020-09-14 05:12] LABS: CALCIUM 8.6 mg/dL (8.4-10.2); CREATININE, SERUM 2.61 mg/dL (0.72-1.25)
[2020-09-14] MEDS: Cefazolin 1 GM in SODIUM CHLORIDE 0.9% 50ML 50 ML IV SCH ×3 (05:39→21:30)
[2020-09-14] MEDS: INSULIN LISPRO 100 UNIT/1 ML 3ML VIAL SQ SCH ×4 (07:30→21:00)
[2020-09-14] MEDS: OMEPRAZOLE 20 MG CAP PO SCH (09:15)
[2020-09-14] MEDS: CARVEDILOL 12.5 MG TAB PO SCH ×2 (09:15→16:58)
[2020-09-14] MEDS: LISINOPRIL 20 MG TAB PO SCH (09:15)
[2020-09-14] MEDS: CLOPIDOGREL BISULFATE 75 MG TAB PO SCH (09:15)
[2020-09-14] MEDS: MUPIROCIN 2% OINT 22 GM TUBE TOP SCH (10:05)
[2020-09-14] MEDS: DEXTROSE 5% 1,000 ML IV SCH (11:42)
[2020-09-15] VITALS (10 sets, daily range): BP systolic 97–169; BP diastolic 58–80
[2020-09-15] MEDS: DEXTROSE 5% 1,000 ML IV SCH ×2 (00:30→12:21)
[2020-09-15] MEDS: Cefazolin 1 GM in SODIUM CHLORIDE 0.9% 50ML 50 ML IV SCH ×3 (05:57→22:11)
[2020-09-15] MEDS: CLOPIDOGREL BISULFATE 75 MG TAB PO SCH (09:22)
[2020-09-15] MEDS: CARVEDILOL 12.5 MG TAB PO SCH ×2 (09:22→16:51)
[2020-09-15] MEDS: OMEPRAZOLE 20 MG CAP PO SCH (09:22)
[2020-09-15] MEDS: LISINOPRIL 20 MG TAB PO SCH (09:23)
[2020-09-15] MEDS: INSULIN LISPRO 100 UNIT/1 ML 3ML VIAL SQ SCH ×4 (09:27→21:30)
[2020-09-15] MEDS: MUPIROCIN 2% OINT 22 GM TUBE TOP SCH (15:26)
[2020-09-16 00:36] VITALS: BP 121/67
[2020-09-16] MEDS: DEXTROSE 5% 1,000 ML IV SCH (02:05)
[2020-09-16 05:13] VITALS: BP 152/92
[2020-09-16] MEDS: Cefazolin 1 GM in SODIUM CHLORIDE 0.9% 50ML 50 ML IV SCH (05:46)
[2020-09-16 08:27] VITALS: BP 157/84
[2020-09-16] MEDS: OMEPRAZOLE 20 MG CAP PO SCH (09:03)
[2020-09-16] MEDS: CLOPIDOGREL BISULFATE 75 MG TAB PO SCH (09:03)
[2020-09-16] MEDS: MUPIROCIN 2% OINT 22 GM TUBE TOP SCH (09:03)
[2020-09-16] MEDS: CARVEDILOL 12.5 MG TAB PO SCH (09:04)
[2020-09-16] MEDS: LISINOPRIL 20 MG TAB PO SCH (09:04)
[2020-09-16] MEDS: INSULIN LISPRO 100 UNIT/1 ML 3ML VIAL SQ SCH (09:08)
[2020-09-16 10:15] VITALS: BP 168/105
[2020-09-16 10:17] VITALS: BP 168/105
[2020-09-16] MEDS ORDERED: LORAZEPAM INJ 2 MG/ML VIAL IV ONE (21:00)
[2020-09-16] MEDS ORDERED: LORAZEPAM INJ 2 MG/ML VIAL IV PRN (21:00)
== END 2020-09-16 12:09 | disposition home health service (06) | DRG 623 ==
LOC: ER 16:08 → ERHOLD 16:58 → INTOOBSV 16:58 → MED/SURG2 09-13 10:16 → OBSVTOIN 09-14 11:31
PROVIDERS: ADMIT Family Medicine; ATTEND Family Medicine
PROC: 0KBV0ZZ Excision of Right Foot Muscle, Open Approach (ICD-10-PCS; principal; 2020-09-14)
DX: E11.69 Type 2 diabetes mellitus with other specified complication (principal); M86.8X6 Other osteomyelitis, lower leg; L03.115 Cellulitis of right lower limb; L97.416 Non-pressure chronic ulcer of right heel and midfoot with bone involvement without evidence of necrosis; E11.649 Type 2 diabetes mellitus with hypoglycemia without coma; N17.9 Acute kidney failure, unspecified; E86.0 Dehydration; I25.10 Atherosclerotic heart disease of native coronary artery without angina pectoris; E11.621 Type 2 diabetes mellitus with foot ulcer; L97.514 Non-pressure chronic ulcer of other part of right foot with necrosis of bone; F17.210 Nicotine dependence, cigarettes, uncomplicated; Z96.642 Presence of left artificial hip joint; K21.9 Gastro-esophageal reflux disease without esophagitis; R26.81 Unsteadiness on feet; E78.5 Hyperlipidemia, unspecified; I10 Essential (primary) hypertension; E11.42 Type 2 diabetes mellitus with diabetic polyneuropathy; E11.21 Type 2 diabetes mellitus with diabetic nephropathy; Z89.512 Acquired absence of left leg below knee; Z88.8 Allergy status to other drugs, medicaments and biological substances; Z95.810 Presence of automatic (implantable) cardiac defibrillator; Z80.3 Family history of malignant neoplasm of breast; Z83.3 Family history of diabetes mellitus; Z82.49 Family history of ischemic heart disease and other diseases of the circulatory system; Z79.4 Long term (current) use of insulin; F03.90 Unspecified dementia, unspecified severity, without behavioral disturbance, psychotic disturbance, mood disturbance, and anxiety; D63.1 Anemia in chronic kidney disease; E11.319 Type 2 diabetes mellitus with unspecified diabetic retinopathy without macular edema; Z20.822 Contact with and (suspected) exposure to COVID-19
CPT/HCPCS: 36415; 70450; 71045; 80048; 80053; 81001; 82550; 82553; 82948; 83735; 84484; 85025; 93005; 97139; 99251; 99285; G0378; J0690; J2060; J7070; U0002